=== PATIENT | female | born 1945 | race Caucasian/White ===

== ENCOUNTER 2020-02-10 07:47 | Outpatient (CLI) | payer MEDICARE, SELFPAY ==
--- NOTE | ~2020-02-10 | MM_ITS ---
EXAMINATION: MM screening [facility] BI w [facility] HISTORY: Screening mammogram TECHNIQUE: Craniocaudal and mediolateral oblique 3-D tomosynthesis images were obtained and synthetic 2-D images were generated. CAD analysis was submitted and interpreted. COMPARISON: 01/17/2019, 12/14/2017, 05/29/2016 bilateral digital screening mammogram examinations BREAST PARENCHYMAL COMPOSITION: The breasts are almost entirely fatty. FINDINGS: There is no evidence of suspicious mass, calcification, or architectural distortion to sugg est malignancy in either breast. There has been no suspicious interval change. IMPRESSION: 1. No mammographic evidence of malignancy. 2. Recommend routine screening mammography in one year. BI-RADS Category 1: Negative Reviewed, dictated and finalized at location A.
== END 2020-02-10 07:48 | disposition home or self-care (01) ==
LOC: ANHIMG 07:50
PROVIDERS: PCP Family Medicine; Visit Provider Family Medicine
DX: Z12.31 Encounter for screening mammogram for malignant neoplasm of breast (principal)
CPT/HCPCS: 77063; 77067

== ENCOUNTER 2020-07-03 08:30 | Outpatient (CLI) | payer MEDICARE, SELFPAY ==
[2020-07-03 09:56] LABS: Basophils Absolute Auto 0.1 K/mm3 (0.0-0.1); Basophils Percent Auto 0.7 % (0.2-1.2); Eosinophils Absolute Auto 0.1 K/mm3 (0-0.3); Eosinophils Percent Auto 2.1 % (0-4.4); Hematocrit 40.2 % (37.0-47.0); Hemoglobin 13.2 g/dL (12.0-15.0); Immature Granulocyte Absolute 0.02 K/mm3 (0.00-0.031); Immature Granulocyte Percent A 0.3 % (0-0.5); Lymphocytes Absolute Auto 1.84 K/mm3 (0.9-3.2); Lymphocytes Percent Auto 27.2 % (18.3-44.2); Mean Corpuscular HGB Conc 32.8 g/dl (32-36); Mean Corpuscular Hemoglobin 30.3 pg (26-34); Mean Corpuscular Volume 92.2 fl (80-100); Mean Platelet Volume 11.4 fl (7.4-10.4); Monocytes Absolute Auto 0.6 K/mm3 (0.1-0.6); Monocytes Percent Auto 8.4 % (2.6-8.5); Neutrophils Absolute Auto 4.1 K/mm3 (1.3-6.7); Neutrophils Percent Auto 61.3 % (45.5-73.1); Platelet Count Result 203 k/mm3 (150-375); Red Blood Count 4.36 M/mm3 (4.2-5.4); Red Cell Distribution Width 11.9 % (11.5-14.5); White Blood Count 6.8 K/mm3 (4.5-10.0)
[2020-07-03 10:14] LABS: Alanine Aminotransferase 15 U/L (4-35); Albumin Level 4.4 g/dL (3.5-5.1); Alkaline Phosphatase 64 U/L (38-126); Anion Gap 9 mmol/L (8-16); Aspartate Amino Transferase 24 U/L (14-36); Bilirubin,Total 0.4 mg/dL (0.2-1.3); Blood Urea Nitrogen 16 mg/dL (7-17); Calcium 9.9 mg/dL (8.4-10.2); Carbon Dioxide 30 mmol/L (22-30); Chloride 100 mmol/L (98-107); Cholesterol 164 mg/dL (0-200); Estimated Glomerular Filt Rate > 60; Glucose 103 mg/dL (65-105); HDL Direct 68 mg/dL; Sodium 139 mmol/L (137-145); Triglycerides 78 mg/dL (<150)
[2020-07-03 10:25] LABS: LDL Cholesterol Direct 78 mg/dL
[2020-07-03 11:18] LABS: Free T4 Free Thyroxine 0.69 ng/mL (0.78-2.19); Vitamin D 25 Hydroxy 50.2 ng/mL
[2020-07-03 11:22] LABS: Hepatitis B Surface Antigen Negative (Negative)
[2020-07-03 11:28] LABS: HAV RESULT Negative (Negative); Hepatitis B Core IgM Result Negative (Negative)
[2020-07-03 11:39] LABS: Hepatitis C Virus Antibody Negative (Negative)
== END 2020-07-03 08:31 | disposition home or self-care (01) ==
PROVIDERS: PCP Family Medicine; Visit Provider Family Medicine
DX: E66.01 Morbid (severe) obesity due to excess calories (principal); E78.2 Mixed hyperlipidemia; E03.9 Hypothyroidism, unspecified; I10 Essential (primary) hypertension; E55.9 Vitamin D deficiency, unspecified; R73.01 Impaired fasting glucose; R53.1 Weakness
CPT/HCPCS: 36415; 80053; 80061; 80074; 82306; 84439; 84443; 84480; 85025

== ENCOUNTER 2021-03-06 11:47 | Outpatient (CLI) | payer MEDICARE, SELFPAY ==
--- NOTE | ~2021-03-06 | MM_ITS ---
EXAMINATION: MM screening [facility] BI w [facility] HISTORY: Screening mammogram TECHNIQUE: Craniocaudal and mediolateral oblique 3-D tomosynthesis images were obtained and synthetic 2-D images were generated. CAD analysis was submitted and interpreted. COMPARISON: 02/10/2020, 12/31/2018, 12/14/2017 BREAST PARENCHYMAL COMPOSITION: The breasts are almost entirely fatty. FINDINGS: There is no evidence of suspicious mass, calcification, or architectural distortion to sugg est malignancy in either breast. There has been no suspicious interval change. IMPRESSION: 1. No mammographic evidence of malignancy. 2. Recommend routine screening mammography in one year. BI-RADS Category 1: Negative Reviewed, dictated and finalized at location A.
== END 2021-03-06 11:48 | disposition home or self-care (01) ==
LOC: ANHIMG 11:49
PROVIDERS: PCP Family Medicine; Visit Provider Nurse Practitioner
DX: Z12.31 Encounter for screening mammogram for malignant neoplasm of breast (principal)
CPT/HCPCS: 77063; 77067

== ENCOUNTER 2021-03-08 09:54 | Outpatient (CLI) | payer MEDICARE, SELFPAY ==
--- NOTE | ~2021-03-08 | XR_ITS ---
EXAMINATION: XR knee RT min 4V EXAM DATE: 03/08/2021 10:22 INDICATION: RT knee pain and swelling, medial pain, swelling, no injury. TECHNIQUE: Right knee lateral, frontal AP, frontal PA tunnel, sunrise projections. There is no prior study for comparison. FINDINGS: There are no acute right knee fractures or dislocations identified. There is no subcutaneo us gas. Dense distal SFA arteriosclerosis. There is moderate right knee primary osteoarthritis. Sma ll to moderate-sized joint effusion. There are no radiopaque foreign bodies. IMPRESSION: 1. Moderate right knee osteoarthritis. 2. Small to moderate joint effusion. Reviewed, dictated and finalized at location B.
== END 2021-03-08 09:55 | disposition home or self-care (01) ==
LOC: ANHIMG 10:03
PROVIDERS: PCP Family Medicine; Visit Provider Nurse Practitioner
DX: M17.11 Unilateral primary osteoarthritis, right knee (principal); M25.461 Effusion, right knee
CPT/HCPCS: 73564

== ENCOUNTER 2021-03-21 08:29 | Outpatient (CLI) | payer MEDICARE, SELFPAY ==
--- NOTE | ~2021-03-21 | DEXA_ITS ---
Bone Density Report Name: Destiney Medina Age: 76 Sex: Female Ethnicity: White Date of : 1945 Indication: postmenopausal; Referring Provider: José, Mary Nunez Study: Bone densitometry was performed. Exam Date: March 21, 2021 Accession number: [id number] Bone Density: Region BMD T-score Z-score Classification AP Spine (L1, L4) 1.125 0.8 3.2 Normal Femoral Neck (Left) 0.675 -1.6 0.5 Osteopenia Total Hip (Left) 0.948 0.0 1.8 Normal Total Hip Bilateral Avg 0.959 0.1 1.9 Normal Femoral Neck (Right) 0.784 -0.6 1.5 Normal Total Hip (Right) 0.968 0.2 2.0 Normal World Health Organization criteria for BMD impression classify patients as: Normal (T-score at or above -1.0), Osteopenia (T-score between -1.0 and -2.5), or Osteoporosis (T-score at or below -2.5). 10-year Fracture Risk(1): Major Osteoporotic Fracture 10% Hip Fracture 3.0% Reported Risk Factors: [place] (), Neck BMD=0.675, BMI=40.2, smoking (1) FRAX(R) Version 3.08. Fracture probability calculated for an untreated patient. Fracture probability may be lower if the patient has received treatment. Clinical Information Provided by Patient: Smokes Has used the following medications: Vitamin D, Calcium Patient maximum height was 62 Menopause Age: 51 No regular weight bearing exercise Onset of menses at age 14 Number of children 2 Impression: The patient has low bone mass, based on the Left Femoral Neck T-score. The patient has an estimated ten-year risk of hip fracture of 3% and an estimated ten-year risk of major fracture of 10%, based on the WHO FRAX algorithm. The patient has risk factors, including: smoking. Discussion: BONE DENSITY IS LOW AT ONE OR MORE SKELETAL SITES. THE PATIENT'S BMD AND CLINICAL RISK FACTORS CONTRIBUTE TO THIS PATIENT'S INCREASED RISK OF FRACTURE. This patient's lowest T-score is low at one or more skeletal sites. It meets the World Health Organization's (WHO) criteria for ?low bone mass? (T-score between -1.0 and -2.5). The patient's 10-year risk of hip fracture as calculated by FRAX exceeds the threshold where pharmacological therapy is recommended by the National Osteoporosis Foundation (NOF). However, all treatment decisions require clinical judgment and consideration of individual patient factors, including patient preferences, comorbidities, previous drug use, risk factors not captured in the FRAX model (e.g., frailty, falls, vitamin D deficiency, increased bone turnover, interval significant decline in bone density) and possible under or overestimation of fracture risk by FRAX. The patient should follow a healthful lifestyle (good nutrition with adequate calcium and vitamin D, and appropriate weight-bearing exercise). Follow-Up: Consider a repeat BMD and Vertebral Fracture Assessment (VFA) exam i
== END 2021-03-21 08:30 | disposition home or self-care (01) ==
LOC: ANHIMG 08:33
PROVIDERS: PCP Family Medicine; Visit Provider Nurse Practitioner
DX: M81.0 Age-related osteoporosis without current pathological fracture (principal); M85.852 Other specified disorders of bone density and structure, left thigh
CPT/HCPCS: 77080

== ENCOUNTER 2021-07-31 08:31 | Outpatient (CLI) | payer MEDICARE, SELFPAY ==
[2021-07-31 09:09] LABS: Basophils Percent Auto 0.6 % (0.2-1.2); Eosinophils Absolute Auto 0.2 K/mm3 (0-0.3); Eosinophils Percent Auto 3.2 % (0-4.4); Hematocrit 37.5 % (37.0-47.0); Hemoglobin 12.3 g/dL (12.0-15.0); Immature Granulocyte Absolute 0.03 K/mm3 (0.00-0.031); Immature Granulocyte Percent A 0.4 % (0-0.5); Lymphocytes Absolute Auto 1.47 K/mm3 (0.9-3.2); Lymphocytes Percent Auto 21.2 % (18.3-44.2); Mean Corpuscular HGB Conc 32.8 g/dl (32-36); Mean Corpuscular Hemoglobin 29.6 pg (26-34); Mean Corpuscular Volume 90.1 fl (80-100); Mean Platelet Volume 10.6 fl (7.4-10.4); Monocytes Absolute Auto 0.6 K/mm3 (0.1-0.6); Monocytes Percent Auto 8.8 % (2.6-8.5); Neutrophils Absolute Auto 4.6 K/mm3 (1.3-6.7); Neutrophils Percent Auto 65.8 % (45.5-73.1); Platelet Count Result 269 k/mm3 (150-375); Red Blood Count 4.16 M/mm3 (4.2-5.4); Red Cell Distribution Width 13.2 % (11.5-14.5)
[2021-07-31 09:26] LABS: Alanine Aminotransferase 13 U/L (4-35); Albumin Level 4.6 g/dL (3.5-5.1); Alkaline Phosphatase 97 U/L (38-126); Anion Gap 10 mmol/L (8-16); Aspartate Amino Transferase 23 U/L (14-36); Bilirubin,Total 0.4 mg/dL (0.2-1.3); Blood Urea Nitrogen 17 mg/dL (7-17); Calcium 10.1 mg/dL (8.4-10.2); Carbon Dioxide 27 mmol/L (22-30); Chloride 96 mmol/L (98-107); Cholesterol 153 mg/dL (0-200); Estimated Glomerular Filt Rate > 60; Glucose 101 mg/dL (65-110); HDL Direct 55 mg/dL; Potassium 4.2 mmol/L (3.4-5.0); Sodium 133 mmol/L (137-145); Triglycerides 92 mg/dL (<150)
[2021-07-31 09:30] LABS: Creatinine Urine 61.1 mg/dL
[2021-07-31 09:32] LABS: MALB Creatinine Ratio 16.9 mg/g (0-30); Microalbumin Urine Random 10.3 mg/L (0-16.7)
[2021-07-31 09:37] LABS: LDL Cholesterol Direct 62 mg/dL
[2021-07-31 09:42] LABS: Free T4 Free Thyroxine 0.99 ng/mL (0.78-2.19); Vitamin D 25 Hydroxy 63.6 ng/mL
[2021-07-31 09:57] LABS: Total Triiodothyronine (T3) 1.11 NG/ML (0.97-1.69)
== END 2021-07-31 08:32 | disposition home or self-care (01) ==
LOC: ANHLAB 08:38
PROVIDERS: PCP Family Medicine; Visit Provider Family Medicine
DX: E78.2 Mixed hyperlipidemia (principal); E66.01 Morbid (severe) obesity due to excess calories; I10 Essential (primary) hypertension; E55.9 Vitamin D deficiency, unspecified; R80.9 Proteinuria, unspecified
CPT/HCPCS: 36415; 80053; 80061; 82043; 82306; 84439; 84443; 84480; 85025

== ENCOUNTER 2022-01-17 08:10 | Outpatient (CLI) | payer MEDICARE, SELFPAY ==
[2022-01-17 09:05] LABS: Basophils Absolute Auto 0.1 K/mm3 (0.0-0.1); Basophils Percent Auto 1.2 % (0.2-1.2); Eosinophils Absolute Auto 0.3 K/mm3 (0-0.3); Eosinophils Percent Auto 4.2 % (0-4.4); Hematocrit 41.4 % (37.0-47.0); Hemoglobin 13.2 g/dL (12.0-15.0); Immature Granulocyte Absolute 0.03 K/mm3 (0.00-0.031); Immature Granulocyte Percent A 0.5 % (0-0.5); Lymphocytes Absolute Auto 1.59 K/mm3 (0.9-3.2); Lymphocytes Percent Auto 23.9 % (18.3-44.2); Mean Corpuscular HGB Conc 31.9 g/dl (32-36); Mean Corpuscular Hemoglobin 29.1 pg (26-34); Mean Corpuscular Volume 91.2 fl (80-100); Mean Platelet Volume 11.4 fl (7.4-10.4); Monocytes Absolute Auto 0.6 K/mm3 (0.1-0.6); Monocytes Percent Auto 8.4 % (2.6-8.5); Neutrophils Absolute Auto 4.1 K/mm3 (1.3-6.7); Neutrophils Percent Auto 61.8 % (45.5-73.1); Platelet Count Result 234 k/mm3 (150-375); Red Blood Count 4.54 M/mm3 (4.2-5.4); Red Cell Distribution Width 13.2 % (11.5-14.5); White Blood Count 6.7 K/mm3 (4.5-10.0)
[2022-01-17 09:19] LABS: Alanine Aminotransferase 16 U/L (6-35); Albumin Level 4.2 g/dL (3.5-5.1); Alkaline Phosphatase 91 U/L (38-126); Anion Gap 10 mmol/L (8-16); Aspartate Amino Transferase 26 U/L (14-36); Bilirubin,Total 0.5 mg/dL (0.2-1.3); Blood Urea Nitrogen 11 mg/dL (7-17); Calcium 9.2 mg/dL (8.4-10.2); Carbon Dioxide 26 mmol/L (22-30); Chloride 101 mmol/L (98-107); Cholesterol 165 mg/dL (0-200); Estimated Glomerular Filt Rate > 60; Glucose 101 mg/dL (65-110); HDL Direct 50 mg/dL; Potassium 3.8 mmol/L (3.4-5.0); Sodium 137 mmol/L (137-145); Triglycerides 106 mg/dL (<150)
[2022-01-17 09:30] LABS: LDL Cholesterol Direct 77 mg/dL
[2022-01-17 09:47] LABS: Total Triiodothyronine (T3) 1.21 NG/ML (0.97-1.69)
[2022-01-17 10:37] LABS: Creatinine Urine 85.9 mg/dL
[2022-01-17 10:39] LABS: MALB Creatinine Ratio 26.9 mg/g (0-30); Microalbumin Urine Random 23.1 mg/L (0-16.7)
[2022-01-17 10:48] LABS: Free T4 Free Thyroxine 1.02 ng/mL (0.78-2.19); Vitamin D 25 Hydroxy 62.2 ng/mL
== END 2022-01-17 08:11 | disposition home or self-care (01) ==
LOC: ANHLAB 08:12
PROVIDERS: PCP Family Medicine; Visit Provider Family Medicine
DX: I10 Essential (primary) hypertension (principal); E55.9 Vitamin D deficiency, unspecified; R80.9 Proteinuria, unspecified; Z13.29 Encounter for screening for other suspected endocrine disorder; Z13.220 Encounter for screening for lipoid disorders; Z13.6 Encounter for screening for cardiovascular disorders; Z13.0 Encounter for screening for diseases of the blood and blood-forming organs and certain disorders involving the immune mechanism
CPT/HCPCS: 36415; 80053; 80061; 82043; 82306; 84439; 84443; 84480; 85025

== ENCOUNTER 2022-03-14 08:50 | Observation (INO) | payer MEDICARE, SELFPAY ==
[2022-03-14] VITALS (11 sets, daily range): BP systolic 77–123; BP diastolic 48–89; PULSE 62–106; RESP 16–22; TEMP 36.2–36.8; O2SAT 96–100; BMI 38.0
--- NOTE | ~2022-03-14 | CT_ITS ---
EXAMINATION: CT abdomen pelvis w con DATE: 03/14/2022 10:05 INDICATION: Nausea, vomiting and diarrhea for one month. Elevated lactic. TECHNIQUE: Computed tomography (CT) of the abdomen and pelvis was performed with 100 CC Omnipaque 300 intravenous contrast. Automated exposure control and iterative reconstruction technique were employe d. Exam dose: 1246.15 mGy-cm total exam DLP. COMPARISON: None. FINDINGS: There is minimal discoid atelectasis or scarring in the lateral basilar right lower lobe. N ormal heart size. No pericardial or pleural effusion. 4.5 cm left hepatic cyst. The liver is otherwise unremarkable. The gallbladder is present. No bile du ct or pancreatic duct dilatation. No pancreatic mass lesion or calcification is noted. Normal splenic size. Normal morphology of the right adrenal gland. There is hypertrophy of the left adrenal gland. No renal mass lesion or urinary tract calculus or hydroureteronephrosis. The urinary bladder is evacu ated. Minimal sigmoid diverticulosis; no CT evidence of diverticulitis. No bowel obstruction, bowel wall th ickening, pneumatosis or intraperitoneal free air. No portal venous gas. Very small fat-containing umbilical hernia. Uterus and adnexal areas are unremarkable. Infrarenal saccular abdominal aortic aneurysm measures up to approximately 3.2 cm maximal dimension. There is extensive calcification of the abdominal aorta, prominent calcification at the origin of the celiac trunk, severe calcification at the origin and much of the remainder of the superior mesenteri c. Inferior mesenteric artery is not visualized. There is extensive calcification of the iliac and femoral arteries. Prominent bilateral renal artery calcifications. No suspicious osteolytic or osteoblastic lesions. IMPRESSION: 3.2 cm saccular infrarenal abdominal aortic aneurysm Extensive calcification at the origin of the celiac trunk and origin and much of the superior mesente adeola artery and nonvisualization of the inferior mesenteric artery No bowel obstruction, bowel wall thickening, pneumatosis or intraperitoneal free air or portal venous gas is detected Mild sigmoid diverticulosis; no evidence of diverticulitis 4.5 cm left hepatic cyst Hypertrophy of left adrenal gland Reviewed, dictated and finalized at Location A. Reviewed, dictated and finalized at location A. IMPRESSION: 3.2 cm saccular infrarenal abdominal aortic aneurysm Extensive calcification at the origin of the celiac trunk and origin and much o f the superior mesenteric artery and nonvisualization of the inferior mesenteri c artery No bowel obstruction, bowel wall thickening, pneumatosis or intraperitoneal suzanne e air or portal venous gas is detected Mild sigmoid diverticulosis; no evidence of diverticulitis 4.5 cm left hepatic cyst Hypertrophy of left adrenal gland
--- NOTE | 2022-03-14 09:01 | ED.NAVMDI ---
HPI - Nausea/Vomiting/Diarrhea General Chief complaint: Nausea/Vomiting/Diarrhea <Samantha Barnhart PA-C - Last Filed: 03/14/22 19:17> Stated complaint: nausea, vomiting, diarrhea x1 month <Samantha Barnhart PA-C - Last Filed: 03/14/22 19:17> Time Seen by Provider: 03/14/22 09:00 <GURDEEP Ramirez Last Filed: 03/14/22 19:17> Source: patient <GURDEEP Ramirez Last Filed: 03/14/22 19:17> Mode of arrival: ambulatory <GURDEEP Ramirez Last Filed: 03/14/22 19:17> Limitations: no limitations <Samantha Barnhart PA-C - Last Filed: 03/14/22 19:17> History of Present Illness HPI Narrative: Patient is a 77 y/o female who presents to the ED w/ c/o N/V/D. Patient reports having persistent diarrhea and nausea for the past 1 month. She states the diarrhea has been very watery and loose. No blood in the stool. She has intermittently been taking Imodium at home which does provide temporary relief of the diarrhea. She last took this yesterday, but had diarrhea this morning. She states her last episode of vomiting was around 3 weeks ago, but she has been persistently nauseous. She has not been evaluated for this. She has had fatigue, anorexia, weight loss, dizziness, and abdominal cramping associated with having BMs, but denies persistent abdominal pain. No fevers, chills, dysuria, hematuria, back pain, focal weakness, cough/cold symptoms. No recent antibiotics, travel, new medications. <GURDEEP Ramirez Last Filed: 03/14/22 19:17> Related Data Home medications: Home Medications Medication Instructions Recorded Confirmed alendronate 70 mg tablet 70 mg PO WEEKLY 08/18/19 03/14/22 atorvastatin 10 mg tablet 10 mg PO DAILY 08/18/19 03/14/22 calcium carbonate 500 mg calcium 500 mg PO BID 08/18/19 03/14/22 (1,250 mg) tablet (Calcium 500) lisinopril 40 mg tablet 40 mg PO DAILY 08/18/19 03/14/22 <Samantha Barnhart PA-C - Last Filed: 03/14/22 19:17> Allergies/Adverse reactions: Allergies Allergy/AdvReac Type Severity Reaction Status Date / Time No Known Allergies Allergy Unknown Verified 03/14/22 09:05 <Samantha Barnhart PA-C - Last Filed: 03/14/22 19:17> Review of Systems Review of Systems: CONSTITUTIONAL: Reports fatigue, anorexia, weight loss. Denies fever, chills, or sweats. ENT: Denies rhinorrhea, congestion, sore throat. CARDIOVASCULAR: Denies chest pain. RESPIRATORY: Denies dyspnea. GASTROINTESTINAL: Reports N/V/D, abdominal cramping. Denies rectal bleeding. GENITOURINARY: Denies dysuria or hematuria. SKIN: Denies rash or itching. MUSCULOSKELETAL: Denies back pain. NEUROLOGIC: Reports dizziness. Denies numbness or focal weakness. <Samantha Barnhart PA-C - Last Filed: 03/14/22 19:17> All systems reviewed & are unremarkable except as noted in HPI and below <Samantha Barnhart PA-C - Last Filed: 03/14/22 19:17> [facility] Past Medical History Medical History: Medical History COPD (chronic obstructive pulmonary disease) Dizziness Knee effusion Left knee DJD Obesity Right knee DJD Right knee pain Sleep apnea <Samantha Barnhart PA-C - Last Filed: 03/14/22 19:17> Surgical History Surgical History: Surgical History History of carpal tunnel release <Samantha Barnhart PA-C - Last Filed: 03/14/22 19:17> Social History Social History: Social History Smoking packs per day: 1 Smoking cigarettes per day: 20.0 Years smoked: 50 Smoking pack-years: 50.00 Smoking status: Current every day smoker Tobacco type: cigarettes Alcohol intake: current Drinks per week: 3 Substance use: never Substance use type: does not use Gender identity (if verbalized by the patient): Female Spiritual care concerns: No <Samantha Barnhart PA-C - Last Filed: 03/14/22 19:17> Exam Narrative: GENERAL
[2022-03-14 09:34] LABS: Basophils Absolute Auto 0.1 K/mm3 (0.0-0.1); Basophils Percent Auto 0.5 % (0.2-1.2); Eosinophils Absolute Auto 0.1 K/mm3 (0-0.3); Eosinophils Percent Auto 1.3 % (0-4.4); Hematocrit 39.9 % (37.0-47.0); Immature Granulocyte Absolute 0.04 K/mm3 (0.00-0.031); Immature Granulocyte Percent A 0.4 % (0-0.5); Lymphocytes Absolute Auto 1.55 K/mm3 (0.9-3.2); Lymphocytes Percent Auto 13.9 % (18.3-44.2); Mean Corpuscular HGB Conc 32.6 g/dl (32-36); Mean Corpuscular Hemoglobin 28.6 pg (26-34); Mean Corpuscular Volume 87.9 fl (80-100); Mean Platelet Volume 10.7 fl (7.4-10.4); Monocytes Absolute Auto 0.9 K/mm3 (0.1-0.6); Monocytes Percent Auto 7.7 % (2.6-8.5); Neutrophils Absolute Auto 8.5 K/mm3 (1.3-6.7); Neutrophils Percent Auto 76.2 % (45.5-73.1); Platelet Count Result 236 k/mm3 (150-375); Red Blood Count 4.54 M/mm3 (4.2-5.4); Red Cell Distribution Width 14.4 % (11.5-14.5); White Blood Count 11.2 K/mm3 (4.5-10.0)
[2022-03-14] MEDS: ONDANSETRON INJ 4 MG/2 ML VIAL IV PUSH (09:36)
[2022-03-14] MEDS: SODIUM CHLORIDE 0.9% IV 1,000 ML 999 ML IV CONT ×2 (09:38→11:02)
[2022-03-14 09:46] LABS: Alanine Aminotransferase 19 U/L (6-35); Albumin Level 4.2 g/dL (3.5-5.1); Alkaline Phosphatase 77 U/L (38-126); Anion Gap 9 mmol/L (8-16); Aspartate Amino Transferase 23 U/L (14-36); Bilirubin,Total 0.4 mg/dL (0.2-1.3); Blood Urea Nitrogen 23 mg/dL (7-17); Carbon Dioxide 20 mmol/L (22-30); Chloride 106 mmol/L (98-107); Estimated CRCL calculation 50 ml/min; Estimated Glomerular Filt Rate > 60; Glucose 121 mg/dL (65-110); Lipase 180 U/L (23-300); Potassium 4.1 mmol/L (3.4-5.0); Sodium 135 mmol/L (137-145)
[2022-03-14 09:47] LABS: Lactic Acid Reflex 3.8 mmol/L (0.7-2.0)
--- NOTE | 2022-03-14 10:00 | PC.NURSE ---
Pt at CT scan at this time
--- NOTE | 2022-03-14 10:31 | PC.NURSE ---
bladder scanned at 1020 and found 129 ml of urine
[2022-03-14 10:59] LABS: Appearance Urine Clear (Clear); Bilirubin Urine Negative (Negative); Color Urine Yellow (Yellow); Glucose Urine UA Negative (Negative); Ketones Urine Negative (Negative); Leukocyte Esterase Ur Trace LEU/UL (Negative); Nitrate Urine Positive (Negative); Protein Urine 1+ mg/dL (Negative); Urobilinogen Urine 0.2 mg/dL (<2.0)
[2022-03-14 11:12] LABS: Bacteria Urine 3+ /hpf; Mucus Urine Few /lpf; Squamous Epithelial Cell Urine Few /hpf (Few); WBC Clumps Urine Present /HPF; WBC Urine 31-50 /hpf
[2022-03-14 11:25] LABS: Add Urine Microscopic? YES; Blood Urine Trace-Intact (Negative)
[2022-03-14 12:23] LABS: Magnesium 1.8 mg/dL (1.6-2.3)
--- NOTE | 2022-03-14 12:24 | PM.IMHP ---
H&P: HPI History of Present Illness Date/Time: 03/14/22 12:22 Chief Complaint: Nausea, vomiting and diarrhea for one month Narrative: This pleasant 77 year old female patient with significant PMH of HTN, HLD, and Osteoporosis, presents to the ER this morning independently ambulatory with complaints of having intermittent N/V/D for the past month intermittently with a weight loss of 14 lbs (221-207) in the last month. The N/V/D is associated with lower abdominal pain. She denies any fevers, hematemesis, melena or hematochezia. She has not recently been on any abx therapy and she has intermittently used Imodium and pepto bismol without any relief of her symptoms. She has not seen her PCP regarding these symptoms recently, but she has been referred to a GI specialist with whom she cannot get in to see until sometime in March. This morning she says she has just had enough of the pain and the repeated need to use the bathroom prompting her to present to the ER. She endorses that her last BM was on the way here, in route from home, and that the last time she vomited was two weeks ago. She does have occasional GERD with her symptoms. She has not had any abdominal surgeries. Workup was started in the ER upon presentation and it was noted the patient initially had a soft blood pressure, however with IV fluids it is increased to normal. Labs were performed and patient has a slightly elevated white blood cell count of 11.2 with mild elevation of absolute neutrophils of 8.5. Her electrolytes are stable and normal, however her lactic acid is 3.8. Urinalysis is significant for positive nitrites in the urine as well as leukocyte esterase and 31-50 wbc's. Blood cultures x2 and urine culture are pending. CT of the abdomen and pelvis was performed demonstrating 3.2 cm saccular infrarenal abdominal aortic aneurysm with extensive calcification at the origin of the celiac trunk and origin much of the superior mesenteric artery and nonvisualization of the inferior mesenteric artery. There was no appreciable bowel obstruction, bowel wall thickening, pneumatosis or free air or portal venous gas detected, there is mild sigmoid diverticulosis without evidence of diverticulitis. A 4.5 cm left hepatic cyst is noted and hypertrophy of the left adrenal gland. Otherwise there are no acute findings. Pt. is being admitted to the hospitalist service at this time for hydration, further monitoring and treatment of UTI with consult to GI placed for Co-Management for patient's presenting symptoms. At the time of my assessment, the patient is without any CP, dyspnea, or urinary complaints, however, she does have some abdominal cramping and some continued N/V. Review of Systems Review of Systems: All systems reviewed & are unremarkable except as noted in HPI and below PMFSH Past Medical History Medical History COPD (chronic obstructive pulmonary disease) Dizziness Knee effusion Left knee DJD Obesity Right knee DJD Right knee pain Sleep apnea Surgical History Surgical History History of carpal tunnel release Social History Social History Smoking packs per day: 1 Smoking cigarettes per day: 20.0 Years smoked: 50 Smoking pack-years: 50.00 Smoking status: Current every day smoker Tobacco type: cigarettes Alcohol intake: current Drinks per week: 3 Substance use: never Substance use type: does not use Gender identity (if verbalized by the patient): Female Meds Home Medications and Allergies Home Medications Medication Instructions Recorded Confirmed Type alendronate 70 mg tablet 70 mg PO WEEKLY 08/18/19 04/25/21 History atorvastatin 10 mg tablet 10 mg PO DAILY 08/18/19 04/25/21 History calcium carbonate 500 mg calcium 500 mg PO BID 08/18/19 04/25/21 History (1,
[2022-03-14 12:32] LABS: Reflex Lactic Acid Yes or No Add Lactic
[2022-03-14 13:02] LABS: Lactic Acid 1.5 mmol/L (0.7-2.0)
[2022-03-14 14:29] LABS: Procalcitonin 0.1 ng/mL
[2022-03-14] MEDS: SODIUM CHLORIDE 0.9% IV 1,000 ML 100 ML IV CONT (14:32)
[2022-03-14] MEDS: PANTOPRAZOLE SODIUM IV 40 MG VIAL IV PUSH (16:16)
--- NOTE | 2022-03-14 16:19 | ADMGEN ---
This patient, Destiney Medina, was admitted to [facility] Surg Room 307-01 at 1405. Patient/family oriented to hospital policies and general routines including ID bracelet, bed and alarms, visiting hours, pain management, procedures, bathroom and other care routines, personal items, smoking policy, room service/diet, and visiting hours. Information on how to activate the Rapid Response Team has been discussed. Patient/Family are encouraged to report perceived risks to care and to ask questions if they do not understand what they are told or what they should do.
[2022-03-15] MEDS: SODIUM CHLORIDE 0.9% IV 1,000 ML 100 ML IV CONT (00:24)
[2022-03-15 05:56] LABS: Basophils Percent Auto 0.5 % (0.2-1.2); Eosinophils Absolute Auto 0.2 K/mm3 (0-0.3); Eosinophils Percent Auto 3.2 % (0-4.4); Hematocrit 33.8 % (37.0-47.0); Hemoglobin 10.6 g/dL (12.0-15.0); Immature Granulocyte Absolute 0.03 K/mm3 (0.00-0.031); Immature Granulocyte Percent A 0.5 % (0-0.5); Lymphocytes Absolute Auto 1.27 K/mm3 (0.9-3.2); Lymphocytes Percent Auto 20.1 % (18.3-44.2); Mean Corpuscular HGB Conc 31.4 g/dl (32-36); Mean Corpuscular Hemoglobin 28.5 pg (26-34); Mean Corpuscular Volume 90.9 fl (80-100); Mean Platelet Volume 10.5 fl (7.4-10.4); Monocytes Absolute Auto 0.5 K/mm3 (0.1-0.6); Monocytes Percent Auto 7.9 % (2.6-8.5); Neutrophils Absolute Auto 4.3 K/mm3 (1.3-6.7); Neutrophils Percent Auto 67.8 % (45.5-73.1); Platelet Count Result 160 k/mm3 (150-375); Red Blood Count 3.72 M/mm3 (4.2-5.4); Red Cell Distribution Width 14.3 % (11.5-14.5); White Blood Count 6.3 K/mm3 (4.5-10.0)
[2022-03-15 06:00] VITALS: BP 148/63; PULSE 66; RESP 18; TEMP 36.3; O2SAT 97
[2022-03-15 06:12] LABS: Alanine Aminotransferase 14 U/L (6-35); Alkaline Phosphatase 59 U/L (38-126); Anion Gap 2 mmol/L (8-16); Aspartate Amino Transferase 17 U/L (14-36); Bilirubin,Total 0.1 mg/dL (0.2-1.3); Blood Urea Nitrogen 11 mg/dL (7-17); Calcium 7.9 mg/dL (8.4-10.2); Carbon Dioxide 24 mmol/L (22-30); Chloride 112 mmol/L (98-107); Estimated CRCL calculation 63 ml/min; Estimated Glomerular Filt Rate > 60; Glucose 97 mg/dL (65-110); Magnesium 1.9 mg/dL (1.6-2.3); Potassium 4.1 mmol/L (3.4-5.0); Sodium 138 mmol/L (137-145)
--- NOTE | 2022-03-15 08:11 | PM.IMPN ---
Progress Note: A&P Assessment and Plan (1) Nausea vomiting and diarrhea: Code(s): R11.2 - Nausea with vomiting, unspecified; R19.7 - Diarrhea, unspecified Status: Acute Assessment and Plan: - Consult GI services in setting of patient having prolonged symptoms and weight loss of 14 lbs in one month. Appreciate the recommendations ongoing co-management. - BCx2 pending - Stool culture, C-diff and O&P pending. - PRN Zofran for nausea - Bentyl prn ordered. - Continue IV fluids of normal saline at 100 mL/hour. - PPI therapy ordered with maximization using Protonix 40 mg IVP BID. (2) Weight loss: Code(s): R63.4 - Abnormal weight loss Status: Acute Assessment and Plan: - Daily weights - treatment as above. - Accurate I and O (3) Urinary tract infection: Qualifiers: Hematuria presence: with hematuria Urinary tract infection type: acute cystitis Qualified Code(s): N30.01 - Acute cystitis with hematuria Code(s): N39.0 - Urinary tract infection, site not specified Status: Acute Assessment and Plan: - Urine culture pending - Rocephin 1 g daily. (4) Dehydration: Code(s): E86.0 - Dehydration Status: Acute Assessment and Plan: - Continue hydration with normal saline at 100 mL/hour. - Follow daily labs and vitals for trending. (5) Elevated lactic acid level: Code(s): R79.89 - Other specified abnormal findings of blood chemistry Status: Acute Assessment and Plan: - lactic acid noted to be 3.8. Suspect this is from dehydration. - Patient has received 2 L IV fluids. Will recheck stat lactic acid. Also add on procalcitonin as a predictor of potential sepsis. (6) High cholesterol: Code(s): E78.00 - Pure hypercholesterolemia, unspecified Status: Acute Assessment and Plan: - Continue home dose of atorvastatin 10 mg daily. - LFTs noted to be normal. (7) HTN (hypertension): Code(s): I10 - Essential (primary) hypertension Status: Acute Assessment and Plan: - Continue home medications of lisinopril 40 mg p.o. daily. - Renal function noted to be normal. (8) Osteoporosis: Code(s): M81.0 - Age-related osteoporosis without current pathological fracture Status: Acute Assessment and Plan: - Continue patient's alendronate 70 mg p.o. weekly. Subjective Date/time seen: 03/15/22 08:11 Review of Systems Review of Systems: All systems reviewed & are unremarkable except as noted in HPI and below Objective Data Vital Signs Vital Signs: Vital Signs - 24 hr 03/14/22 08:51 03/14/22 09:13 03/14/22 09:13 Temperature 97.1 F L Pulse Rate 106 H 65 62 Respiratory Rate 16 18 Blood Pressure 100/70 77/58 L 97/48 L Pulse Oximetry 100 100 Oxygen Delivery Room Air 03/14/22 09:30 03/14/22 09:17 03/14/22 09:30 Temperature Pulse Rate 65 91 Respiratory Rate 20 20 Blood Pressure 100/48 L 86/58 L 77/58 L Pulse Oximetry 98 98 Oxygen Delivery 03/14/22 09:32 03/14/22 11:03 03/14/22 11:58 Temperature 98.3 F Pulse Rate 95 77 77 Respiratory Rate 20 20 18 Blood Pressure 100/48 L 101/61 120/64 Pulse Oximetry 98 100 100 Oxygen Delivery 03/14/22 13:00 03/14/22 13:56 03/14/22 14:30 Temperature 97.6 F 98.3 F Pulse Rate 76 76 Respiratory Rate 16 18 Blood Pressure 123/67 112/80 Pulse Oximetry 99 99 Oxygen Delivery Room Air 03/14/22 15:08 03/14/22 21:47 03/15/22 06:00 Temperature 97.4 F L 97.6 F 97.3 F L Pulse Rate 82 71 66 Respiratory Rate 22 H 18 18 Blood Pressure 106/89 112/70 148/63 H Pulse Oximetry 96 100 97 Oxygen Delivery Intake/Output Intake/Output: Intake & Output 03/12/22 03/13/22 03/14/22 03/15/22 23:59 23:59 23:59 23:59 Intake Total 2170 1590 Output Total 50 2700 Balance 2120 -1110 Meds/Results Medications: Active Medications Generic Name Dose Route Start Last Admin Trade
[2022-03-15] MEDS: ATORVASTATIN 10 MG TABLET PO (08:16)
[2022-03-15] MEDS: PANTOPRAZOLE SODIUM IV 40 MG VIAL IV PUSH (08:16)
[2022-03-15] MEDS: lisinopriL 10 MG TABLET PO (08:16)
--- NOTE | 2022-03-15 09:49 | WPDGICN ---
Assessment and Plan Assessment and plan (1) Nausea vomiting and diarrhea: Code(s): R11.2 - Nausea with vomiting, unspecified; R19.7 - Diarrhea, unspecified Status: Acute Assessment and Plan: Nausea vomiting diarrhea appears to have been present for 1 month in miraculously has improved overnight. This may be related IV rehydration. Perhaps related to empiric antibiotic use. Unable to obtain stool cultures because diarrhea has resolved. Would recommend increasing diet and early discharge. If diarrhea recurs then stool culture is advised. Because she was started on empiric antibiotics would continue this for 1 week. Antibiotics should also be directed towards her concomitant urinary tract infection. Consider elective neoplasia screening colonoscopy according screening guidelines if not already accomplished this can be done as an outpatient. (2) Urinary tract infection: Qualifiers: Hematuria presence: with hematuria Urinary tract infection type: acute cystitis Qualified Code(s): N30.01 - Acute cystitis with hematuria Code(s): N39.0 - Urinary tract infection, site not specified Status: Acute Assessment and Plan: Urinalysis suggest underlying urinary tract infection. Recommend urine cultures and appropriate antibiotic coverage. Perhaps this contributed to nausea. GI Consult Note Consult date/time: 03/15/22 09:49 Reason for consult: Nausea vomiting and diarrhea. HPI: Destiney Medina is a 77 year old female I am asked to see at the request of the hospitalist service. Patient reports she began a new medicine for hypertension a month ago. Since that time she has had persistent nausea vomiting diarrhea. She describes diarrhea as watery and persistent throughout the day. Does not occur at night. She has had no fever no bleeding reported. Because of the extreme nausea vomiting diarrhea. She presented emergency room last night. She states she has not really been vomiting much but has had no appetite. And the emergency room she was felt to have urinary tract infection she was started on empiric antibiotics. She has been unable to produce a stool sample because the diarrhea now has stopped she no longer is nauseated in tolerating regular diet this morning. She is anxious to go home. She did receive empiric antibiotics last evening. Family history noncontributory. No one else in the family has been ill. Review of Systems Review of Systems: Review of systems noncontributory. [facility] Past Medical History Medical History COPD (chronic obstructive pulmonary disease) Dizziness Knee effusion Left knee DJD Obesity Right knee DJD Right knee pain Sleep apnea Surgical History Surgical History History of carpal tunnel release Social History Social History Smoking packs per day: 1 Smoking cigarettes per day: 20.0 Years smoked: 50 Smoking pack-years: 50.00 Smoking status: Current every day smoker Tobacco type: cigarettes Alcohol intake: current Drinks per week: 3 Substance use: never Substance use type: does not use Gender identity (if verbalized by the patient): Female Spiritual care concerns: No Meds Home Medications and Allergies Home Medications Medication Instructions Recorded Confirmed Type alendronate 70 mg tablet 70 mg PO WEEKLY 08/18/19 03/14/22 History atorvastatin 10 mg tablet 10 mg PO DAILY 08/18/19 03/14/22 History calcium carbonate 500 mg calcium 500 mg PO BID 08/18/19 03/14/22 History (1,250 mg) tablet (Calcium 500) lisinopril 40 mg tablet 40 mg PO DAILY 08/18/19 03/14/22 History Allergies Allergy/AdvReac Type Severity Reaction Status Date / Time No Known Allergies Allergy Unknown Verified 03/14/22 09:05 Vital Signs Vital Signs - 24 hr 03/14/22
--- NOTE | 2022-03-15 12:39 | PM.DS ---
DS: Admitting Diagnosis Discharge Date 03/15/22 Admitting Diagnosis Nausea vomiting diarrhea DS: Discharge Diagnosis Discharge Diagnosis (1) Nausea vomiting and diarrhea: Code(s): R11.2 - Nausea with vomiting, unspecified; R19.7 - Diarrhea, unspecified Status: Acute (2) Weight loss: Code(s): R63.4 - Abnormal weight loss Status: Acute (3) Urinary tract infection: Qualifiers: Hematuria presence: with hematuria Urinary tract infection type: acute cystitis Qualified Code(s): N30.01 - Acute cystitis with hematuria Code(s): N39.0 - Urinary tract infection, site not specified Status: Acute (4) Dehydration: Code(s): E86.0 - Dehydration Status: Acute (5) Elevated lactic acid level: Code(s): R79.89 - Other specified abnormal findings of blood chemistry Status: Acute (6) High cholesterol: Code(s): E78.00 - Pure hypercholesterolemia, unspecified Status: Acute (7) HTN (hypertension): Code(s): I10 - Essential (primary) hypertension Status: Acute (8) Osteoporosis: Code(s): M81.0 - Age-related osteoporosis without current pathological fracture Status: Acute DS: Summary Hospital Course Hospital Course: Assessment and plan (1) Nausea vomiting and diarrhea: ?Code(s): R11.2 - Nausea with vomiting, unspecified; R19.7 - Diarrhea, unspecified ?Status:?Acute ?Assessment and Plan: - Consult GI services in setting of patient having prolonged symptoms and weight loss of 14 lbs in one month.? Appreciate the recommendations ongoing co-management. - BCx2 pending - Stool culture, C-diff and O&P pending. - PRN Zofran for nausea - Bentyl prn ordered. - Continue IV fluids of normal saline? at 100 mL/hour. - PPI therapy ordered with maximization using Protonix 40 mg IVP BID. (2) Weight loss: ?Code(s): R63.4 - Abnormal weight loss ?Status:?Acute ?Assessment and Plan: - ? Daily weights -? treatment as above. - ? Accurate I and O (3) Urinary tract infection: ?Qualifiers: ?Hematuria presence:?with hematuria??Urinary tract infection type:?acute cystitis? Qualified Code(s):?N30.01 - Acute cystitis with hematuria ?Code(s): N39.0 - Urinary tract infection, site not specified ?Status:?Acute ?Assessment and Plan: - ? Urine culture pending -? Rocephin 1 g daily. 03/15: Transition to cefdinir 300 mg q.12 hours to complete a 7 day course of antibiotics (4) Dehydration: ?Code(s): E86.0 - Dehydration ?Status:?Acute ?Assessment and Plan: - ? Continue hydration with normal saline at 100 mL/hour. - ? Follow daily labs and vitals for trending. (5) Elevated lactic acid level: ?Code(s): R79.89 - Other specified abnormal findings of blood chemistry ?Status:?Acute ?Assessment and Plan: -? lactic acid noted to be 3.8.? Suspect this is from dehydration. - ? Patient has received 2 L IV fluids. ? Will recheck stat lactic acid.? Also add on procalcitonin as a predictor of potential sepsis. 03/15: Procalcitonin is negative for sepsis lactic acid completely resolved (6) High cholesterol: ?Code(s): E78.00 - Pure hypercholesterolemia, unspecified ?Status:?Acute ?Assessment and Plan: - ? Continue home dose of? atorvastatin 10 mg daily. - ? LFTs noted to be normal. (7) HTN (hypertension): ?Code(s): I10 - Essential (primary) hypertension ?Status:?Acute ?Assessment and Plan: - ? Continue home medications of lisinopril 40 mg p.o. daily. - ? Renal function noted to be normal. (8) Osteoporosis: ?Code(s): M81.0 - Age-related osteoporosis without current pathological fracture ?Status:?Acute ?Assessment and Plan: - ? Continue patient's alendronate 70 mg p.o. weekly. Time Spent with Patient Time attestation: Total time spent providing and/or coordinating discharge services: DS: Data Data Completed and Pending Labs on day of
== END 2022-03-15 11:40 | disposition home or self-care (01) ==
LOC: ANHED 12:14 → ANH3MEDSUR 12:53
PROVIDERS: Nurse Practitioner Adult Health; Physician Assistant; Admitting Provider Chiropractor; Emergency Provider Emergency Medicine; PCP Family Medicine; Visit Provider Student in an Organized Health Care Education/Training Program
DX: R11.2 Nausea with vomiting, unspecified (principal); R19.7 Diarrhea, unspecified; R63.4 Abnormal weight loss; N30.01 Acute cystitis with hematuria; E86.0 Dehydration; R79.89 Other specified abnormal findings of blood chemistry; E78.00 Pure hypercholesterolemia, unspecified; I10 Essential (primary) hypertension; M81.0 Age-related osteoporosis without current pathological fracture; I71.4 Abdominal aortic aneurysm, without rupture; I77.1 Stricture of artery; K55.1 Chronic vascular disorders of intestine; J44.9 Chronic obstructive pulmonary disease, unspecified; E66.9 Obesity, unspecified; Z68.37 Body mass index [BMI] 37.0-37.9, adult; G47.30 Sleep apnea, unspecified; R42 Dizziness and giddiness; D72.829 Elevated white blood cell count, unspecified; R00.0 Tachycardia, unspecified; I95.9 Hypotension, unspecified; E78.5 Hyperlipidemia, unspecified; K57.30 Diverticulosis of large intestine without perforation or abscess without bleeding; K76.89 Other specified diseases of liver; E27.8 Other specified disorders of adrenal gland; F17.210 Nicotine dependence, cigarettes, uncomplicated; Z79.899 Other long term (current) drug therapy
CPT/HCPCS: 36415; 51701; 74177; 80053; 81001; 83605; 83690; 83735; 84145; 85025; 87040; 87077; 87086; 87186; 96361; 96365; 96375; 96376; 99285; A9270; C9113; G0378; J0696; J2405; J7030; Q9967

== ENCOUNTER → 2022-06-04 09:29 | Outpatient (CLI) | payer MEDICARE, SELFPAY ==
--- NOTE | ~2022-06-04 | CT_ITS ---
EXAMINATION: CT abdomen w con DATE: 06/04/2022 09:53 INDICATION: Chronic diarrhea. TECHNIQUE: Computed tomography (CT) of the abdomen was performed with 100 mL Omnipaque 350 intravenou s contrast. Automated exposure control and iterative reconstruction technique were employed. The dose -length product was 679.55 mGy-cm. COMPARISON: CT abdomen and pelvis 03/14/2022, chest CT 05/13/2016 FINDINGS: The visualized portions of the lung bases demonstrate mild atelectasis. No pleural effusion . The heart size is normal. No pericardial effusion. There are cysts in the liver measuring up to 4.5 cm. The gallbladder, spleen, pancreas, and right adrenal gland are normal. There is chronic thickeni ng of left adrenal gland, likely benign. The kidneys are normal. There is a 3.5 cm infrarenal aortic aneurysm. There are no dilated loops of bowel. The terminal ileum is normal. There are no pathologica lly enlarged lymph nodes. There is no free intraperitoneal fluid. There is mild lumbar spondylosis. IMPRESSION: 1. 3.5 cm infrarenal aortic aneurysm, stable from 03/14/2022. Reviewed, dictated and finalized at location A.
[2022-06-04 09:47] LABS: Estimated Glomerular Filt Rate > 60
== END ==
PROVIDERS: PCP Family Medicine; Visit Provider Nurse Practitioner Adult Health
DX: K52.9 Noninfective gastroenteritis and colitis, unspecified (principal); I71.43 Infrarenal abdominal aortic aneurysm, without rupture
CPT/HCPCS: 74160; Q9967

== ENCOUNTER 2022-06-13 11:40 | Inpatient (IN) | payer MEDICARE, SELFPAY ==
[2022-06-13] VITALS (9 sets, daily range): BP systolic 81–121; BP diastolic 34–80; PULSE 74–101; RESP 16–32; TEMP 36.4–36.8; O2SAT 96–100; BMI 35.4
[2022-06-13 12:05] LABS: Basophils Absolute Auto 0.1 K/mm3 (0.0-0.1); Basophils Percent Auto 0.3 % (0.2-1.2); Eosinophils Absolute Auto 0.1 K/mm3 (0-0.3); Eosinophils Percent Auto 0.4 % (0-4.4); Hematocrit 39.8 % (37.0-47.0); Hemoglobin 13.5 g/dL (12.0-15.0); Immature Granulocyte Percent A 1.1 % (0-0.5); Lymphocytes Absolute Auto 2.41 K/mm3 (0.9-3.2); Lymphocytes Percent Auto 13.5 % (18.3-44.2); Mean Corpuscular HGB Conc 33.9 g/dl (32-36); Mean Corpuscular Hemoglobin 29.6 pg (26-34); Mean Corpuscular Volume 87.3 fl (80-100); Mean Platelet Volume 11.1 fl (7.4-10.4); Monocytes Absolute Auto 1.2 K/mm3 (0.1-0.6); Monocytes Percent Auto 6.8 % (2.6-8.5); Neutrophils Absolute Auto 13.9 K/mm3 (1.3-6.7); Neutrophils Percent Auto 77.9 % (45.5-73.1); Platelet Count Result 218 k/mm3 (150-375); Red Blood Count 4.56 M/mm3 (4.2-5.4); Red Cell Distribution Width 13.3 % (11.5-14.5); White Blood Count 17.8 K/mm3 (4.5-10.0)
[2022-06-13 12:13] LABS: Alanine Aminotransferase 20 U/L (6-35); Albumin Level 4.2 g/dL (3.5-5.1); Alkaline Phosphatase 90 U/L (38-126); Anion Gap 17 mmol/L (8-16); Aspartate Amino Transferase 24 U/L (14-36); Bilirubin,Total 0.9 mg/dL (0.2-1.3); Blood Urea Nitrogen 19 mg/dL (7-17); Carbon Dioxide 25 mmol/L (22-30); Chloride 87 mmol/L (98-107); Estimated CRCL calculation 37 ml/min; Estimated Glomerular Filt Rate 44; Glucose 125 mg/dL (65-110); Lipase 93 U/L (23-300); Sodium 129 mmol/L (137-145)
[2022-06-13 12:24] LABS: Add Urine Microscopic? YES; Amorphous Sediment Urine Few; Appearance Urine Cloudy (Clear); Bacteria Urine Trace /hpf; Bilirubin Urine Negative (Negative); Blood Urine 1+ (Negative); Color Urine Yellow (Yellow); Glucose Urine UA Negative (Negative); Ketones Urine Negative (Negative); Leukocyte Esterase Ur 3+ LEU/UL (Negative); Mucus Urine Rare /lpf; Nitrate Urine Negative (Negative); Protein Urine Negative (Negative); Specific Grav Ur 1.006 (1.001-1.035); Squamous Epithelial Cell Urine Many /hpf (Few); Urobilinogen Urine Negative mg/dL (<2.0); WBC Urine 31-50 /hpf
--- NOTE | 2022-06-13 12:43 | ED.GENADULT ---
HPI - General Adult General Chief complaint: Nausea/Vomiting/Diarrhea Stated complaint: diarrhea, vomiting, dizzy Time Seen by Provider: 06/13/22 12:19 History of Present Illness HPI narrative: 77-year-old female presented emerged department for evaluation of worsening dizziness and lightheadedness. Patient states intermittently since January she has had symptoms of of diarrhea with associated dizziness and fatigue. Patient is also had a urinary tract infection for which she was treated with antibiotics. Patient was scheduled for follow-up with Dr. Nails's office and patient was found to be hypotensive with a systolic blood pressure in the 80s. When patient initially arrived to the emergency department her pressure was improved but repeat blood pressures confirm the hypotension. Patient does complain of dizziness with ambulation. Patient denies any current abdominal pain but states that she has been having increased gas. Patient denies any pain with urination. Patient does have a previous history of hypertension, osteoporosis, obesity, COPD Related Data Home Medications Medication Instructions Recorded Confirmed alendronate 70 mg tablet 70 mg PO WEEKLY 08/18/19 06/13/22 atorvastatin 10 mg tablet 10 mg PO HS 08/18/19 06/13/22 calcium carbonate 500 mg calcium 500 mg PO BID 08/18/19 06/13/22 (1,250 mg) tablet (Calcium 500) lisinopril 40 mg tablet 40 mg PO DAILY 08/18/19 06/13/22 Allergies Allergy/AdvReac Type Severity Reaction Status Date / Time No Known Allergies Allergy Unknown Verified 06/13/22 11:01 Review of Systems Review of Systems: CONSTITUTIONAL: Denies fever, chills, or sweats. EYES: Denies visual changes, redness, or discharge. ENT: Denies rhinorrhea, congestion, sore throat, or otalgia. CARDIOVASCULAR: Denies chest pain, palpitations, or edema. RESPIRATORY: Denies cough or dyspnea. GASTROINTESTINAL: See HPI GENITOURINARY: See HPI SKIN: Denies rash or itching. MUSCULOSKELETAL: Denies back pain, joint pain, or myalgia. NEUROLOGIC: Denies headache, numbness, or weakness. [facility] Past Medical History Medical History COPD (chronic obstructive pulmonary disease) Dizziness High cholesterol Hypotension Knee effusion Left knee DJD Liver lesion Obesity Right knee DJD Right knee pain Sleep apnea Known longer uses her CPAP Smoking Surgical History Surgical History H/O cataract extraction History of carpal tunnel release Family History Family History Father Kidney disease Mother MVA (motor vehicle accident) Sibling Diabetes mellitus Social History Social History (Updated 06/13/22 @ 16:12 by Mary Bowens NP) Social History: The patient lives with her who is the poa and they have 2 children. She socially drinks. She continues to smoke 1 pack a cigarettes a day. I did offer her smoking cessation and she is not interested at this time. The patient . Code status full code Smoking packs per day: 1 Smoking cigarettes per day: 20.0 Years smoked: 50 Smoking pack-years: 50.00 Smoking status: Current every day smoker Alcohol intake: current Drinks per week: 3 Substance use: never Substance use type: does not use Gender identity (if verbalized by the patient): Female Spiritual care concerns: No Exam Narrative: APPEARANCE: Well appearing, no pain, no distress, well-nourished. HEAD: normocephalic, atraumatic. EYES: PERRLA/EOMI, conjunctivae clear. NOSE: Normal no drainage NECK: Supple. No adenopathy, no masses. RESPIRATORY: Airway patent, respirations nonlabored. Clear to auscultation bilaterally, no rales, rhonchi, wheezing. CARDIOVASCULAR: Regular rate and rhythm without murmurs rubs or gallops. ABDOMINAL: Soft, nontender, nondistended, normal bowel sounds MUSCULOSKELETAL: Moves all extremities. Strength/ROM intact, No edema, No calf te
[2022-06-13] MEDS: SODIUM CHLORIDE 0.9% IV 1,000 ML 999 ML IV CONT (13:03)
[2022-06-13] MEDS: POTASSIUM CHLORIDE 20 MEQ PACKET (FOR LIQUID) 40 MEQ PO (14:14)
--- NOTE | 2022-06-13 14:18 | PM.IMHP ---
H&P: HPI History of Present Illness Date/Time: 06/13/22 14:18 Chief Complaint: Nausea vomiting diarrhea. Narrative: This is a 77-year-old female patient who stated that she has had diarrhea since her last admission here in February. The patient stated she had been on antibiotics in February. She stated that she has loose stools maybe 3 to 4 times a day. She stated she has been taking some medication that is been helping with that. However today the patient came to the emergency room with complaints of worsening dizziness and lightheadedness. The patient stated that she went to her GI doctor Dr. Nails today for evaluation of her diarrhea. The patient was found to be hypotensive where her systolic blood pressures were in the 80s. When the patient arrived to the emergency room her blood pressures were confirmed to be low and she complained of dizziness with ambulation. The patient denies any abdominal pain at this time. The patient did have a stool in the emergency room that had some liquid and mashed potato consistency. Her white count was noted to be 17.8. Her sodium was low at 129. Potassium is 3.0. Creatinine and was listed as 1.2. Her glucose 125. Her urine was found to be infectious. Her stool for C diff was negative. The patient was empirically treated with IV Flagyl x1. She was given Rocephin for urinary tract infection. The patient was given 2 L of fluid in the emergency room which did improve her blood pressure which is now 112/62. Initially her blood pressure was 80/42. The patient is being admitted to observation status on the date of service of 06/13/2022. Review of Systems Review of Systems: See HPI All systems reviewed & are unremarkable except as noted in HPI and below Constitutional: Constitutional: Reports as per HPI and Reports no additional constitutional complaints Eyes: Eyes: Reports as per HPI and Reports no additional eye complaints ENT: Reports system reviewed and no additional complaints, except as documented and Reports Normal hearing present Cardiovascular: Cardiovascular: Reports no additional cardiovascular complaints Respiratory: Respiratory: Reports no additional respiratory complaints and Reports no additional respiratory complaints Gastrointestinal: Gastrointestinal: Reports as per HPI and Reports no additional gastrointestinal complaints Musculoskeletal: Musculoskeletal: Reports no additional musculoskeletal complaints Integumentary/Breasts: Skin/Breast: Reports system reviewed and no additional complaints, except as docu and Reports as per HPI Neurologic: Reports system reviewed and no additional complaints, except as documented, Reports as per HPI and Reports Normal hearing present Psychiatric: Psychiatric: Reports no additional psychiatric complaints and Reports as per HPI Endocrine: Endocrine: Reports no additional endocrine complaints Hematologic/Lymphatic: Hematologic/Lymphatic: Reports no additional hematologic/lymphatic complaints Allergic/Immunologic: Allergic/Immunologic: Reports no additional allergic/immunologic complaints [facility] Past Medical History Medical History COPD (chronic obstructive pulmonary disease) Dizziness High cholesterol Hypotension Knee effusion Left knee DJD Liver lesion Obesity Right knee DJD Right knee pain Sleep apnea Known longer uses her CPAP Smoking Surgical History Surgical History H/O cataract extraction History of carpal tunnel release Family History Family History Father Kidney disease Mother MVA (motor vehicle accident) Sibling Diabetes mellitus Social History Social History (Updated 06/13/22 @ 16:12 by Mary Bowens NP) Social History: The patient lives with her who is the poa and they have 2 children. She socially drinks. She continues to smoke 1 pack a cigarettes a day. I did offer her smoking cessa
--- NOTE | 2022-06-13 15:04 | ADMGEN ---
This patient, Destiney Medina, was admitted to [facility] Surg Room 324-01. Patient/family oriented to hospital policies and general routines including ID bracelet, bed and alarms, visiting hours, pain management, procedures, bathroom and other care routines, personal items, smoking policy, room service/diet, and visiting hours. Information on how to activate the Rapid Response Team has been discussed. Patient/Family are encouraged to report perceived risks to care and to ask questions if they do not understand what they are told or what they should do.
[2022-06-13] MEDS: SODIUM CHLORIDE 0.9% IV 1,000 ML 125 ML IV CONT ×2 (15:14→23:33)
[2022-06-13] MEDS: metroNIDAZOLE 500 MG/ISO 100ML 500 MG/100 ML BAG 100 MG IVPB (15:39)
[2022-06-13 15:42] LABS: Toxigenic C. Diff NEGATIVE (NEGATIVE)
[2022-06-13] MEDS: CALCIUM CARBONATE (OSCAL) 500 MG TABLET PO (17:26)
[2022-06-13] MEDS: CHOLESTYRAMINE (W/ SUGAR) 4 GM POWD.PACK PO (17:26)
[2022-06-13] MEDS: ATORVASTATIN 10 MG TABLET PO (20:54)
[2022-06-13] MEDS: PANTOPRAZOLE SODIUM IV 40 MG VIAL IV PUSH (20:54)
[2022-06-13] MEDS: DICYCLOMINE HCL 10 MG CAPSULE PO (20:54)
[2022-06-13 22:22] LABS: Anion Gap 7 mmol/L (8-16); Blood Urea Nitrogen 16 mg/dL (7-17); Calcium 7.9 mg/dL (8.4-10.2); Carbon Dioxide 25 mmol/L (22-30); Chloride 95 mmol/L (98-107); Estimated CRCL calculation 44 ml/min; Estimated Glomerular Filt Rate 54; Glucose 117 mg/dL (65-110); Magnesium 1.7 mg/dL (1.6-2.3); Potassium 3.3 mmol/L (3.4-5.0); Sodium 127 mmol/L (137-145)
[2022-06-14 04:47] VITALS: BP 92/39; PULSE 65; RESP 28; TEMP 36.3; O2SAT 96
--- NOTE | 2022-06-14 07:11 | WPDGICN ---
Assessment and Plan Assessment and plan (1) Diarrhea: Qualifiers: Diarrhea type: unspecified type Qualified Code(s): R19.7 - Diarrhea, unspecified Code(s): R19.7 - Diarrhea, unspecified Status: Acute Assessment and Plan: this has been going on now for about 4 months. Some days she will have some me stool she cannot count them. Rarely does she have any formed stool. There has been no blood in her stool. (2) Acute hypotension: Code(s): I95.9 - Hypotension, unspecified Status: Acute Assessment and Plan: She was noted to be hypotensive in our office and came to the emergency room her blood pressure systolic was in the 80s. She was given 2 L of fluid by bolus with her blood pressure finally coming up. (3) Hypokalemia: Code(s): E87.6 - Hypokalemia Status: Acute Assessment and Plan: Initial potassium was 3.0. Today is 3.2 (4) Hyponatremia: Code(s): E87.1 - Hypo-osmolality and hyponatremia Status: Acute Assessment and Plan: potassium was low on admission at 1 29 in fact is a bit lower today at 1:27 a.m.. (5) Weight loss: Code(s): R63.4 - Abnormal weight loss Status: Acute Assessment and Plan: Since February she states that she has lost about 30 lb. She had not been trying to lose weight Plan we will schedule her for colonoscopy to be done Thursday morning. I explained the procedure in prep to her. We will let her eat regular food today and switch her to clear liquids tomorrow. GI Consult Note Consult date/time: 06/14/22 07:11 HPI: Destiney Medina is a 77 year old female who was admitted with dehydration, hypotension, and severe diarrhea. The patient had a brief hospitalization in February with diarrhea but she felt much better after rehydration and she was sent home. She went to the office yesterday for follow-up and was noted to be hypotensive. She admitted that she had been lightheaded. She tells me she almost fell a couple days ago getting out of her chair. She has had diarrhea on and off since February. It briefly improved when she went on a brat diet. Imodium helps her briefly as well. There has been no blood in her stools. Her appetite has decreased. She feels that she is more afraid to eat than nauseated. But is somewhat nauseated today. She has been checked for C diff which was negative. She has lost about 30 lb since February. Her last colonoscopy was perhaps 20 years ago. On arrival she was found to have urinary tract infection as been started on Rocephin. She did receive 1 dose of Flagyl as well. Sodium also was low at 129 potassium was 3.0. White blood count is all over 17,000. Review of Systems Review of Systems: All systems reviewed & are unremarkable except as noted in HPI and below [facility] Past Medical History Medical History COPD (chronic obstructive pulmonary disease) Dizziness High cholesterol Hypotension Knee effusion Left knee DJD Liver lesion Obesity Right knee DJD Right knee pain Sleep apnea Known longer uses her CPAP Smoking Surgical History Surgical History H/O cataract extraction History of carpal tunnel release Family History Family History Father Kidney disease Mother MVA (motor vehicle accident) Sibling Diabetes mellitus Social History Social History Social History: The patient lives with her who is the poa and they have 2 children. She socially drinks. She continues to smoke 1 pack a cigarettes a day. I did offer her smoking cessation and she is not interested at this time. The patient . Code status full code Smoking packs per day: 1 Smoking cigarettes per day: 20.0 Years smoked: 50 Smoking pack-years: 50.00 Smoking status: Current every day smoker Alcohol intake: cur
[2022-06-14] MEDS: SODIUM CHLORIDE 0.9% IV 1,000 ML 125 ML IV CONT ×3 (08:33→19:51)
[2022-06-14] MEDS: PANTOPRAZOLE SODIUM IV 40 MG VIAL IV PUSH ×2 (08:34→19:51)
[2022-06-14] MEDS: CALCIUM CARBONATE (OSCAL) 500 MG TABLET PO ×2 (08:34→17:26)
[2022-06-14 08:35] VITALS: BP 92/39; PULSE 65; RESP 28; TEMP 36.3; O2SAT 96
[2022-06-14 09:36] LABS: Basophils Absolute Auto 0.1 K/mm3 (0.0-0.1); Basophils Percent Auto 0.4 % (0.2-1.2); Eosinophils Absolute Auto 0.1 K/mm3 (0-0.3); Eosinophils Percent Auto 0.6 % (0-4.4); Hematocrit 32.2 % (37.0-47.0); Hemoglobin 10.6 g/dL (12.0-15.0); Immature Granulocyte Percent A 0.8 % (0-0.5); Lymphocytes Absolute Auto 1.65 K/mm3 (0.9-3.2); Lymphocytes Percent Auto 13.2 % (18.3-44.2); Mean Corpuscular HGB Conc 32.9 g/dl (32-36); Mean Platelet Volume 11.1 fl (7.4-10.4); Monocytes Percent Auto 7.7 % (2.6-8.5); Neutrophils Absolute Auto 9.7 K/mm3 (1.3-6.7); Neutrophils Percent Auto 77.3 % (45.5-73.1); Platelet Count Result 169 k/mm3 (150-375); Red Blood Count 3.66 M/mm3 (4.2-5.4); Red Cell Distribution Width 13.4 % (11.5-14.5); White Blood Count 12.5 K/mm3 (4.5-10.0)
[2022-06-14 09:50] LABS: Lactic Acid Reflex 2.2 mmol/L (0.7-2.0)
[2022-06-14 10:01] LABS: Alanine Aminotransferase 19 U/L (6-35); Albumin Level 3.4 g/dL (3.5-5.1); Alkaline Phosphatase 69 U/L (38-126); Anion Gap 8 mmol/L (8-16); Anion Gap 9 mmol/L (8-16); Aspartate Amino Transferase 21 U/L (14-36); Bilirubin,Total 0.5 mg/dL (0.2-1.3); Blood Urea Nitrogen 10 mg/dL (7-17); Blood Urea Nitrogen 9 mg/dL (7-17); Calcium 7.7 mg/dL (8.4-10.2); Calcium 7.8 mg/dL (8.4-10.2); Carbon Dioxide 21 mmol/L (22-30); Carbon Dioxide 22 mmol/L (22-30); Chloride 104 mmol/L (98-107); Estimated CRCL calculation 54 ml/min; Estimated Glomerular Filt Rate > 60; Glucose 102 mg/dL (65-110); Lipase 103 U/L (23-300); Phosphorus 2.6 mg/dL (2.5-4.5); Potassium 3.5 mmol/L (3.4-5.0); Potassium 3.6 mmol/L (3.4-5.0); Sodium 134 mmol/L (137-145)
[2022-06-14 10:33] VITALS: O2SAT 97
[2022-06-14 10:55] LABS: Magnesium 1.9 mg/dL (1.6-2.3)
[2022-06-14] MEDS: CHOLESTYRAMINE (W/ SUGAR) 4 GM POWD.PACK PO ×2 (11:28→18:09)
[2022-06-14 12:31] LABS: Reflex Lactic Acid Yes or No Add Lactic
--- NOTE | 2022-06-14 13:02 | PM.IMPN ---
Progress Note: A&P Assessment and Plan (1) Acute UTI: Code(s): N39.0 - Urinary tract infection, site not specified Status: Acute Assessment and Plan: -the patient has been started on Rocephin. -could be related to diarrhea. -the patient had Klebsiella pneumoniae in February of this year. -blood and urine cultures are pending. 06/14/2022 interval history: patient is 77-year-old female presented emergency department with complaint of persistent diarrhea loss for my and recently frequency had worsen, poor p.o. intake patient was seen by her GI the clinic was hypotensive and was sent to emergency department for further evaluation most likely secondary to dehydration due to diarrhea and poor p.o. intake, patient is being hydrated with IVF, stool cultures are pending, patient empirically started on Flagyl, urine also suspicious for UTI and patient is being treated with ceftriaxone, patient seen by GI recommending colonoscopy to further evaluate, patient has a hyponatremia hypokalemia most likely secondary to dehydration and poor p.o. in will supplement and monitor, and further recommendation to follow (2) Diarrhea: Qualifiers: Diarrhea type: unspecified type Qualified Code(s): R19.7 - Diarrhea, unspecified Code(s): R19.7 - Diarrhea, unspecified Status: Acute Assessment and Plan: -the patient was in seeing GI specialist when she became symptomatic. -no GI is available here at this point but she will need to follow-up with GI. -stool cultures are pending. -the patient had a CT of the abdomen with several days ago. Which is listed above. -the patient was started on Questran. -continue with Bentyl (3) Dizziness: Code(s): R42 - Dizziness and giddiness Status: Acute Assessment and Plan: -most likely related to the dehydration. -check orthostatic blood pressures. -continue with IV fluids. As the patient had been hypotensive and responded to the fluids. (4) Hypotension: Code(s): I95.9 - Hypotension, unspecified Status: Acute Assessment and Plan: -most likely related to dehydration. -continue with IV fluids is the blood pressure did respond to the fluids. -could also be related to infection with the UTI. -holding lisinopril (5) High cholesterol: Code(s): E78.00 - Pure hypercholesterolemia, unspecified Status: Acute Assessment and Plan: -continue with atorvastatin. (6) Hypokalemia: Code(s): E87.6 - Hypokalemia Status: Acute Assessment and Plan: -her potassium was 3.0 and had been replaced. -will check her potassium later on tonight as well as her magnesium. (7) Hyponatremia: Code(s): E87.1 - Hypo-osmolality and hyponatremia Status: Acute Assessment and Plan: -continue with IV fluids and recheck electrolytes this evening. -check urine for osmolarity and electrolytes. (8) Acute renal failure: Code(s): N17.9 - Acute kidney failure, unspecified Status: Acute Assessment and Plan: -most likely pre renal azotemia related to the dehydration from the diarrhea. -avoid any nephrotoxic medications. -holding lisinopril Subjective Date/time seen: 06/14/22 13:02 Nausea vomiting diarrhea. HPI-Narrative: This is a 77-year-old female patient who stated that she has had diarrhea since her last admission here in February.? The patient stated she had been on antibiotics in February.? She stated that she has loose stools maybe 3 to 4 times a day.? She stated she has been taking some medication that is been helping with that.? However today the patient came to the emergency room with complaints of worsening dizziness and lightheadedness.? The patient stated that she went to her GI doctor Dr. Nails today for evaluation of her diarrhea.? The patient was found to be hypotensive where her systolic blood pressures were in the 80s.? When the patient arrived to the emergency room her blood pressures were confir
[2022-06-14 13:36] VITALS: BP 101/41; PULSE 72; RESP 10; TEMP 36.4; O2SAT 98
[2022-06-14 13:58] LABS: Lactic Acid 1.8 mmol/L (0.7-2.0)
[2022-06-14 17:30] LABS: Potassium Urine Random 11.1 meq/L
[2022-06-14 19:50] VITALS: PULSE 72; TEMP 36.4
[2022-06-14] MEDS: ATORVASTATIN 10 MG TABLET PO (19:51)
[2022-06-14 22:00] VITALS: BP 108/40; PULSE 71; RESP 14; TEMP 36.3; O2SAT 96
[2022-06-15] MEDS: SODIUM CHLORIDE 0.9% IV 1,000 ML 125 ML IV CONT ×3 (04:27→21:51)
[2022-06-15 06:00] VITALS: BP 120/46; PULSE 63; RESP 16; TEMP 35.9; O2SAT 100
[2022-06-15 08:00] VITALS: BP 89/64; PULSE 68; RESP 18; TEMP 36.5; O2SAT 100
[2022-06-15] MEDS: PANTOPRAZOLE SODIUM IV 40 MG VIAL IV PUSH ×2 (09:07→20:10)
[2022-06-15] MEDS: CALCIUM CARBONATE (OSCAL) 500 MG TABLET PO ×2 (09:08→16:34)
[2022-06-15] MEDS: CHOLESTYRAMINE (W/ SUGAR) 4 GM POWD.PACK PO (09:08)
[2022-06-15 10:25] VITALS: BP 111/50; PULSE 72; RESP 22; TEMP 36.5; O2SAT 100
[2022-06-15 10:26] VITALS: BP 115/44; PULSE 74; RESP 26; TEMP 36.5; O2SAT 100
--- NOTE | 2022-06-15 12:27 | PM.IMPN ---
Progress Note: A&P Assessment and Plan (1) Acute UTI: Code(s): N39.0 - Urinary tract infection, site not specified Status: Acute Assessment and Plan: -the patient has been started on Rocephin. -could be related to diarrhea. -the patient had Klebsiella pneumoniae in February of this year. -blood and urine cultures are pending. 06/15/2022 interval history: patient is 77-year-old female presented emergency department with complaint of persistent diarrhea and recently frequency had worsen, poor p.o. intake patient was seen by her GI in the clinic was hypotensive and was sent to emergency department for further evaluation most likely secondary to dehydration due to diarrhea and poor p.o. intake, patient is being hydrated with IVF, stool cultures are pending, patient empirically started on Flagyl, urine also suspicious for UTI and patient is being treated with ceftriaxone, patient seen by GI recommending colonoscopy to further evaluate, patient has a hyponatremia hypokalemia most likely secondary to dehydration and poor p.o. will supplement and monitor, and further recommendation to follow (2) Diarrhea: Qualifiers: Diarrhea type: unspecified type Qualified Code(s): R19.7 - Diarrhea, unspecified Code(s): R19.7 - Diarrhea, unspecified Status: Acute Assessment and Plan: -the patient was in seeing GI specialist when she became symptomatic. -no GI is available here at this point but she will need to follow-up with GI. -stool cultures are pending. -the patient had a CT of the abdomen with several days ago. Which is listed above. -the patient was started on Questran. -continue with Bentyl (3) Dizziness: Code(s): R42 - Dizziness and giddiness Status: Acute Assessment and Plan: -most likely related to the dehydration. -check orthostatic blood pressures. -continue with IV fluids. As the patient had been hypotensive and responded to the fluids. (4) Hypotension: Code(s): I95.9 - Hypotension, unspecified Status: Acute Assessment and Plan: -most likely related to dehydration. -continue with IV fluids is the blood pressure did respond to the fluids. -could also be related to infection with the UTI. -holding lisinopril (5) High cholesterol: Code(s): E78.00 - Pure hypercholesterolemia, unspecified Status: Acute Assessment and Plan: -continue with atorvastatin. (6) Hypokalemia: Code(s): E87.6 - Hypokalemia Status: Acute Assessment and Plan: -her potassium was 3.0 and had been replaced. -will check her potassium later on tonight as well as her magnesium. (7) Hyponatremia: Code(s): E87.1 - Hypo-osmolality and hyponatremia Status: Acute Assessment and Plan: -continue with IV fluids and recheck electrolytes this evening. -check urine for osmolarity and electrolytes. (8) Acute renal failure: Code(s): N17.9 - Acute kidney failure, unspecified Status: Acute Assessment and Plan: -most likely pre renal azotemia related to the dehydration from the diarrhea. -avoid any nephrotoxic medications. -holding lisinopril Subjective Date/time seen: 06/15/22 12:27 06/15/2022 interval history: patient is 77-year-old female presented emergency department with complaint of persistent diarrhea and recently frequency had worsen, poor p.o. intake patient was seen by her GI in the clinic was hypotensive and was sent to emergency department for further evaluation most likely secondary to dehydration due to diarrhea and poor p.o. intake, patient is being hydrated with IVF, stool cultures are pending, patient empirically started on Flagyl, urine also suspicious for UTI and patient is being treated with ceftriaxone, patient seen by GI recommending colonoscopy to further evaluate, patient has a hyponatremia hypokalemia most likely secondary to dehydration and poor p.o. will supplement and monitor, and further r
[2022-06-15 12:33] LABS: Hematocrit 34.1 % (37.0-47.0); Hemoglobin 11.1 g/dL (12.0-15.0); Mean Corpuscular HGB Conc 32.6 g/dl (32-36); Mean Corpuscular Hemoglobin 29.3 pg (26-34); Mean Platelet Volume 11.4 fl (7.4-10.4); Platelet Count Result 172 k/mm3 (150-375); Red Blood Count 3.79 M/mm3 (4.2-5.4); Red Cell Distribution Width 13.5 % (11.5-14.5); White Blood Count 9.6 K/mm3 (4.5-10.0)
[2022-06-15 13:02] LABS: Albumin Level 3.5 g/dL (3.5-5.1); Anion Gap 8 mmol/L (8-16); Blood Urea Nitrogen 4 mg/dL (7-17); Calcium 7.1 mg/dL (8.4-10.2); Carbon Dioxide 20 mmol/L (22-30); Chloride 107 mmol/L (98-107); Estimated CRCL calculation 61 ml/min; Estimated Glomerular Filt Rate > 60; Glucose 116 mg/dL (65-110); Magnesium 1.8 mg/dL (1.6-2.3); Phosphorus 1.9 mg/dL (2.5-4.5); Potassium 3.1 mmol/L (3.4-5.0); Sodium 135 mmol/L (137-145)
[2022-06-15 14:00] VITALS: BP 123/53; PULSE 66; RESP 20; TEMP 35.9; O2SAT 98
[2022-06-15] MEDS: polyethylene glycoL 3350 238 GM BOTTLE PO (16:32)
[2022-06-15] MEDS: ATORVASTATIN 10 MG TABLET PO (20:10)
[2022-06-15 22:00] VITALS: BP 149/51; PULSE 70; RESP 20; TEMP 36.3; O2SAT 100
[2022-06-16] VITALS (10 sets, daily range): BP systolic 82–166; BP diastolic 36–114; PULSE 65–80; RESP 16–24; TEMP 36.3–36.7; O2SAT 96–100
[2022-06-16] MEDS: SODIUM CHLORIDE 0.9% IV 1,000 ML 125 ML IV CONT (06:25)
[2022-06-16 06:36] LABS: Hematocrit 33.9 % (37.0-47.0); Hemoglobin 10.9 g/dL (12.0-15.0); Mean Corpuscular HGB Conc 32.2 g/dl (32-36); Mean Corpuscular Hemoglobin 29.2 pg (26-34); Mean Corpuscular Volume 90.9 fl (80-100); Mean Platelet Volume 11.4 fl (7.4-10.4); Platelet Count Result 166 k/mm3 (150-375); Red Blood Count 3.73 M/mm3 (4.2-5.4); Red Cell Distribution Width 13.2 % (11.5-14.5); White Blood Count 8.3 K/mm3 (4.5-10.0)
[2022-06-16 06:51] LABS: Albumin Level 3.2 g/dL (3.5-5.1); Anion Gap 11 mmol/L (8-16); Calcium 7.4 mg/dL (8.4-10.2); Carbon Dioxide 20 mmol/L (22-30); Chloride 109 mmol/L (98-107); Estimated CRCL calculation 70 ml/min; Estimated Glomerular Filt Rate > 60; Glucose 91 mg/dL (65-110); Magnesium 1.5 mg/dL (1.6-2.3); Phosphorus 2.4 mg/dL (2.5-4.5); Sodium 140 mmol/L (137-145)
[2022-06-16 07:01] LABS: Blood Urea Nitrogen < 2 mg/dL (7-17)
[2022-06-16] MEDS: PANTOPRAZOLE SODIUM IV 40 MG VIAL IV PUSH ×2 (10:08→20:37)
[2022-06-16] MEDS: POTASSIUM CHLORIDE INJ 40 MEQ in SODIUM CHLORIDE 0.9% IV 500 ML 130 MEQ IVPB (10:08)
[2022-06-16] MEDS: MAGNESIUM SULF 2 GM/WATER 50ML 2 GM/50 ML BAG IVPB (10:08)
--- NOTE | 2022-06-16 13:01 | WPDANESEPPF ---
Anes - Initial Pre Proc Eval Procedure: Operation Date: 06/16/22 14:30 Proposed Procedures p Colonoscopy - Beau Nails MD Date/Time: 06/16/22 13:01 Surgeon: Jennie Pastrana DO Pre Op Diagnosis: UTI/JENIFER/Dizziness Patient Data Age: 77 Gender: F Height: 1.57 m Weight: 88 kg Last Vital Signs Temp 36.4 C L 06/16/22 06:00 Pulse 71 06/16/22 06:00 Resp 23 H 06/16/22 06:00 BP 147/54 H 06/16/22 06:00 Pulse Ox 100 06/16/22 06:00 O2 Del Method Room Air 06/15/22 20:10 Allergies Allergy/AdvReac Type Severity Reaction Status Date / Time No Known Allergies Allergy Unknown Verified 06/13/22 11:01 Home Medications Medication Instructions Recorded Confirmed Type alendronate 70 mg tablet 70 mg PO WEEKLY 08/18/19 06/13/22 History atorvastatin 10 mg tablet 10 mg PO HS 08/18/19 06/13/22 History calcium carbonate 500 mg calcium 500 mg PO BID 08/18/19 06/13/22 History (1,250 mg) tablet (Calcium 500) lisinopril 40 mg tablet 40 mg PO DAILY 08/18/19 06/13/22 History dicyclomine 10 mg capsule 10 mg PO TID PRN Abdominal 03/15/22 06/13/22 Rx Cramping #30 caps Laboratory Tests 06/15/22 06/16/22 06/16/22 11:50 06:02 06:02 WBC 8.3 K/mm3 K/mm3 (4.5-10.0) RBC 3.73 M/mm3 L M/mm3 (4.2-5.4) Hgb 10.9 g/dL L g/dL (12.0-15.0) Hct 33.9 % L % (37.0-47.0) MCV 90.9 fl fl (80-100) MCH 29.2 pg pg (26-34) MCHC 32.2 g/dl g/dl (32-36) RDW 13.2 % % (11.5-14.5) Plt Count 166 k/mm3 k/mm3 (150-375) MPV 11.4 fl H fl (7.4-10.4) Sodium 135 mmol/L L mmol/L 140 mmol/L mmol/L (137-145) (137-145) Potassium 3.1 mmol/L L mmol/L 3.0 mmol/L L mmol/L (3.4-5.0) (3.4-5.0) Chloride 107 mmol/L mmol/L 109 mmol/L H mmol/L (98-107) (98-107) Carbon Dioxide 20 mmol/L L mmol/L 20 mmol/L L mmol/L (22-30) (22-30) Anion Gap 8 mmol/L mmol/L 11 mmol/L mmol/L (8-16) (8-16) BUN 4 mg/dL L D mg/dL < 2 mg/dL L mg/dL (7-17) (7-17) Creatinine 0.70 mg/dL mg/dL 0.60 mg/dL L mg/dL (0.7-1.0) (0.7-1.0) Estim Creat Clear Calc 61 ml/min ml/min 70 ml/min ml/min Estimated GFR > 60 > 60 (59 - ) (59 - ) Glucose 116 mg/dL H mg/dL 91 mg/dL mg/dL (65-110) (65-110) Calcium 7.1 mg/dL L mg/dL 7.4 mg/dL L mg/dL (8.4-10.2) (8.4-10.2) Phosphorus 1.9 mg/dL L mg/dL 2.4 mg/dL L mg/dL (2.5-4.5) (2.5-4.5) Magnesium 1.8 mg/dL mg/dL 1.5 mg/dL L mg/dL (1.6-2.3) (1.6-2.3) Albumin 3.5 g/dL g/dL 3.2 g/dL L g/dL (3.5-5.1) (3.5-5.1) Patient hx anesthesia problems: none Family hx anesthesia problems: none Results Review: All pre-operative results and documents have been reviewed as part of the pre-operative evaluation. [facility] Past Medical History Medical History COPD (chronic obstructive pulmonary disease) Dizziness High cholesterol Hypotension Knee effusion Left knee DJD Liver lesion Obesity Right knee DJD Right knee pain Sleep apnea Known longer uses her CPAP Smoking Surgical History Surgical History H/O cataract extraction History of carpal tunnel release Family History Family History Father Kidney disease Mother MVA (motor vehicle accident) Sibling Diabetes mellitus Social History Social History Social History: The patient lives with her who is the poa and they have 2 children. She socially drinks. She continues to smoke 1 pack a cigarettes a day. I did offer her smoking cessation and she is not interested at this time. The patient . Code status full code Smoking packs per day: 1 Smoking cigarettes per day: 20.0 Years smoked: 50 Smoking pack-years: 50.00 Smoking status: Current e
[2022-06-16] MEDS: LACTATED RINGERS 1,000 ML 150 ML IV CONT (13:39)
[2022-06-16] MEDS: MESALAMINE 400 MG DELAYED RELEASE CAPSULE 800 MG PO (16:11)
[2022-06-16] MEDS: CALCIUM CARBONATE (OSCAL) 500 MG TABLET PO (16:11)
[2022-06-16] MEDS: CEFDINIR 300 MG CAPSULE PO ×2 (16:11→20:37)
--- NOTE | 2022-06-16 17:50 | PM.IMPN ---
Progress Note: A&P Assessment and Plan (1) Hypokalemia: Code(s): E87.6 - Hypokalemia Status: Acute Assessment and Plan: -her potassium was 3.0 and had been replaced. -will check her potassium later on tonight as well as her magnesium. (2) Acute UTI: Code(s): N39.0 - Urinary tract infection, site not specified Status: Acute Assessment and Plan: -the patient has been started on Rocephin. -could be related to diarrhea. -the patient had Klebsiella pneumoniae in February of this year. -blood and urine cultures are pending. 06/16/2022 interval history: patient is 77-year-old female presented emergency department with complaint of persistent diarrhea and recently frequency had worsen, poor p.o. intake patient was seen by her GI in the clinic was hypotensive and was sent to emergency department for further evaluation most likely secondary to dehydration due to diarrhea and poor p.o. intake, patient is being hydrated with IVF, stool cultures are pending, patient empirically started on Flagyl, urine also suspicious for UTI and patient is being treated with ceftriaxone, patient seen by GI recommending colonoscopy to further evaluate, patient had a colonoscopy which showed non specific colitis and ascending colon, biopsies and cytologies taken further recommendation to follow, patient has a hyponatremia hypokalemia most likely secondary to dehydration and poor p.o. patient localizes her improving, will supplement and monitor, and further recommendation to follow (3) Diarrhea: Qualifiers: Diarrhea type: unspecified type Qualified Code(s): R19.7 - Diarrhea, unspecified Code(s): R19.7 - Diarrhea, unspecified Status: Acute Assessment and Plan: -the patient was in seeing GI specialist when she became symptomatic. -no GI is available here at this point but she will need to follow-up with GI. -stool cultures are pending. -the patient had a CT of the abdomen with several days ago. Which is listed above. -the patient was started on Questran. -continue with Bentyl (4) Dizziness: Code(s): R42 - Dizziness and giddiness Status: Acute Assessment and Plan: -most likely related to the dehydration. -check orthostatic blood pressures. -continue with IV fluids. As the patient had been hypotensive and responded to the fluids. (5) Hypotension: Code(s): I95.9 - Hypotension, unspecified Status: Acute Assessment and Plan: -most likely related to dehydration. -continue with IV fluids is the blood pressure did respond to the fluids. -could also be related to infection with the UTI. -holding lisinopril (6) High cholesterol: Code(s): E78.00 - Pure hypercholesterolemia, unspecified Status: Acute Assessment and Plan: -continue with atorvastatin. (7) Hyponatremia: Code(s): E87.1 - Hypo-osmolality and hyponatremia Status: Acute Assessment and Plan: -continue with IV fluids and recheck electrolytes this evening. -check urine for osmolarity and electrolytes. (8) Acute renal failure: Code(s): N17.9 - Acute kidney failure, unspecified Status: Acute Assessment and Plan: -most likely pre renal azotemia related to the dehydration from the diarrhea. -avoid any nephrotoxic medications. -holding lisinopril Subjective Date/time seen: 06/16/22 17:50 06/16/2022 interval history: patient is 77-year-old female presented emergency department with complaint of persistent diarrhea and recently frequency had worsen, poor p.o. intake patient was seen by her GI in the clinic was hypotensive and was sent to emergency department for further evaluation most likely secondary to dehydration due to diarrhea and poor p.o. intake, patient is being hydrated with IVF, stool cultures are pending, patient empirically started on Flagyl, urine also suspicious for UTI and patient is being treated with ceftriaxone, patient seen by GI
[2022-06-16] MEDS: ATORVASTATIN 10 MG TABLET PO (20:37)
[2022-06-17 05:13] VITALS: BP 153/52; PULSE 69; RESP 24; TEMP 36.6; O2SAT 99
[2022-06-17 06:23] LABS: Hematocrit 31.1 % (37.0-47.0); Hemoglobin 10.3 g/dL (12.0-15.0); Mean Corpuscular HGB Conc 33.1 g/dl (32-36); Mean Corpuscular Hemoglobin 29.1 pg (26-34); Mean Corpuscular Volume 87.9 fl (80-100); Mean Platelet Volume 10.9 fl (7.4-10.4); Platelet Count Result 159 k/mm3 (150-375); Red Blood Count 3.54 M/mm3 (4.2-5.4); Red Cell Distribution Width 13.1 % (11.5-14.5); White Blood Count 6.5 K/mm3 (4.5-10.0)
[2022-06-17 06:40] LABS: Albumin Level 2.9 g/dL (3.5-5.1); Anion Gap 9 mmol/L (8-16); Calcium 7.5 mg/dL (8.4-10.2); Carbon Dioxide 22 mmol/L (22-30); Chloride 108 mmol/L (98-107); Estimated CRCL calculation 61 ml/min; Estimated Glomerular Filt Rate > 60; Glucose 94 mg/dL (65-110); Magnesium 1.7 mg/dL (1.6-2.3); Phosphorus 2.4 mg/dL (2.5-4.5); Potassium 2.9 mmol/L (3.4-5.0); Sodium 139 mmol/L (137-145)
[2022-06-17 07:54] LABS: Blood Urea Nitrogen < 2 mg/dL (7-17)
[2022-06-17 08:00] VITALS: BP 136/59
[2022-06-17] MEDS: MESALAMINE 400 MG DELAYED RELEASE CAPSULE 800 MG PO (08:04)
[2022-06-17] MEDS: CEFDINIR 300 MG CAPSULE PO (08:04)
[2022-06-17] MEDS: CALCIUM CARBONATE (OSCAL) 500 MG TABLET PO (08:04)
--- NOTE | 2022-06-17 08:13 | WPDGIPROGNO ---
Progress Note: A&P Assessment and Plan (1) Diarrhea: Qualifiers: Diarrhea type: unspecified type Qualified Code(s): R19.7 - Diarrhea, unspecified Code(s): R19.7 - Diarrhea, unspecified Status: Acute Assessment and Plan: Patient complains of ongoing diarrhea but appears to be resolved today. Diarrhea appears to be intermittent. Colonoscopy performed yesterday revealed nonspecific colitis in the ascending colon. Biopsies were taken histology pending. Additionally serology for IBD is taken. Grossly somewhat suspicious for infectious etiology I would plan empiric antibiotics for 7-10 days. Because of her recurrent nature of diarrhea and colitis evident on exam patient has been given a trial of mesalamine which I would advise taking until seen in the office in follow-up. Plan office follow-up in the GI office in 1 month. At this point patient can be discharged from my perspective all labs pending should be forwarded to GI office for review. Subjective Date/time seen: 06/17/22 08:13 Patient alert comfortable this morning. States she has no more diarrhea. Anxious to go home. Denies abdominal pain. Review of Systems Review of Systems: Review of systems noncontributory. Exam Narrative: Physical exam reveals patient be alert. She is afebrile and anicteric. Lungs are clear to auscultation and percussion. Heart is without murmur or extra sounds. Abdomen bowel sounds are present soft nontender with no organomegaly somewhat obese in nature. Objective Data Vital Signs Vital Signs: Vital Signs - 24 hr 06/16/22 13:29 06/16/22 14:29 06/16/22 14:39 Temperature 97.4 F L Pulse Rate 80 65 65 Respiratory Rate 20 16 24 H Blood Pressure 140/114 H 82/36 L 109/53 L Pulse Oximetry 100 100 100 Oxygen Delivery Room Air Room Air Room Air 06/16/22 14:49 06/16/22 15:33 06/16/22 21:28 Temperature 98.1 F 97.6 F Pulse Rate 67 74 69 Respiratory Rate 20 18 20 Blood Pressure 140/79 166/69 H 145/52 H Pulse Oximetry 100 96 99 Oxygen Delivery Room Air 06/16/22 21:28 06/16/22 21:30 06/16/22 21:32 Temperature Pulse Rate 69 75 79 Respiratory Rate 20 20 20 Blood Pressure 145/52 H 155/67 H 153/59 H Pulse Oximetry 99 100 99 Oxygen Delivery 06/16/22 20:00 06/17/22 05:13 Temperature 98 F Pulse Rate 79 69 Respiratory Rate 20 24 H Blood Pressure 153/52 H Pulse Oximetry 99 99 Oxygen Delivery Room Air Intake/Output Intake/Output: Intake & Output 06/14/22 06/15/22 06/16/22 06/17/22 23:59 23:59 23:59 23:59 Intake Total 4712 5310 2540 300 Output Total 1305 1601 1400 1400 Balance 3407 3709 1140 -1100 Meds/Results Medications: Active Medications Generic Name Dose Route Start Last Admin Trade Name Freq PRN Reason Stop Dose Admin Alendronate Sodium 70 mg 06/18/22 06:30 Alendronate Sodium 70 Mg Tablet PO We@0630 CARITO Atorvastatin Calcium 10 mg 06/13/22 21:00 06/16/22 20:37 Atorvastatin 10 Mg Tablet PO 10 mg HS CARITO Administration Calcium Carbonate 500 mg 06/13/22 17:00 06/17/22 08:04 Calcium Carbonate (Oscal) 500 Mg Tablet PO 500 mg BID CARITO Administration Cefdinir 300 mg 06/16/22 14:00 06/17/22 08:04 Cefdinir 300 Mg Capsule PO 06/17/22 21:01 300 mg Q12HR CARITO Administration Cholestyramine Resin 4 gm 06/13/22 18:00 06/16/22 18:00 Cholestyramine (W/ Sugar) 4 Gm Powd.Pack PO Not Given BID@1000,1800 CARITO Dicyclomine HCl 10 mg 06/13/22 16:27 06/13/22 20:54 Dicyclomine Hcl 10 Mg Capsule PO 10 mg TID PRN Administration Abdominal Cramping Sodium Chloride 1,000 mls @ 125 mls/hr 06/13/22 13:15 06/17/22 00:30 Normal Saline Iv IV CONT Not Given .Q8H CARITO Mesalamine 800 mg 06/16/22 17:00 06/17/22 08:04 Mesalamine 400 Mg Delayed Release Capsule PO 800 mg TID CARITO Administration Ondansetron HCl 4 mg 06/13/22 16:24 Ondansetron Inj 4 Mg/2 Ml Vial IV PUSH Q4H PRN Nausea And
[2022-06-17 08:55] VITALS: BP 149/65; BP 154/69
[2022-06-17] MEDS: POTASSIUM CHLORIDE 20 MEQ PACKET (FOR LIQUID) 40 MEQ PO ×2 (09:14→11:01)
[2022-06-17] MEDS: PANTOPRAZOLE 40 MG TABLET PO (10:14)
--- NOTE | 2022-06-17 10:32 | WPDANESPN ---
Anes - Prog Note Post-Op Date/Time: 06/17/22 09:17 Cardiovascular status: normal Respiratory status: normal Airway patency: baseline Mental status: baseline Post-Op hydration status: normal Vital Signs: Last Vital Signs Temp 98 F 06/17/22 05:13 Pulse 69 06/17/22 05:13 Resp 24 H 06/17/22 05:13 BP 154/69 H 06/17/22 08:55 Pulse Ox 99 06/17/22 05:13 O2 Del Method Room Air 06/16/22 20:00 Pain Score (VAS): 0 I/O: Intake & Output 06/16/22 06/17/22 06/17/22 23:59 07:59 15:59 Intake Total 1490 300 238 Output Total 800 1400 Balance 690 -1100 238 Laboratory Tests 06/17/22 06:01 06/17/22 06:01 06/16/22 06/17/22 06/17/22 15:30 06:01 06:01 WBC 6.5 RBC 3.54 L Hgb 10.3 L Hct 31.1 L MCV 87.9 MCH 29.1 MCHC 33.1 RDW 13.1 Plt Count 159 MPV 10.9 H Sodium 139 Potassium 2.9 L Chloride 108 H Carbon Dioxide 22 Anion Gap 9 BUN < 2 L Creatinine 0.70 Estim Creat Clear Calc 61 Estimated GFR > 60 Glucose 94 Calcium 7.5 L Phosphorus 2.4 L Magnesium 1.7 Albumin 2.9 L ANCA Screen Pending Proteinase 3 (PR3) Ab Pending Myeloperoxidase Ab Pending S.cerevisiae IgG Ab Pending S.cerevisiae IgA Ab Pending Microbiology 06/13/22 14:31 Stool Escherichia coli Shiga Toxins - Final 06/13/22 14:31 Stool Salmonella/Shigella Culture - Final 06/13/22 14:31 Stool Campylobacter Antigen Assay - Final 06/13/22 14:31 Stool Giardia Antigen (JEANNE) - Final Post-procedural complaints: none Patient Feedback: Patient satisfied with anesthetic care.
--- NOTE | 2022-06-17 11:25 | PM.DS ---
DS: Admitting Diagnosis Discharge Date 06/17/2022 Admitting Diagnosis Nausea vomiting diarrhea. DS: Discharge Diagnosis Discharge Diagnosis (1) Hypokalemia: Code(s): E87.6 - Hypokalemia Status: Acute Assessment and Plan: -her potassium was 3.0 and had been replaced. -will check her potassium later on tonight as well as her magnesium. (2) Acute UTI: Code(s): N39.0 - Urinary tract infection, site not specified Status: Acute Assessment and Plan: -the patient has been started on Rocephin. -could be related to diarrhea. -the patient had Klebsiella pneumoniae in February of this year. -blood and urine cultures are pending. 06/16/2022 interval history: patient is 77-year-old female presented emergency department with complaint of persistent diarrhea and recently frequency had worsen, poor p.o. intake patient was seen by her GI in the clinic was hypotensive and was sent to emergency department for further evaluation most likely secondary to dehydration due to diarrhea and poor p.o. intake, patient is being hydrated with IVF, stool cultures are pending, patient empirically started on Flagyl, urine also suspicious for UTI and patient is being treated with ceftriaxone, patient seen by GI recommending colonoscopy to further evaluate, patient had a colonoscopy which showed non specific colitis and ascending colon, biopsies and cytologies taken further recommendation to follow, patient has a hyponatremia hypokalemia most likely secondary to dehydration and poor p.o. patient localizes her improving, will supplement and monitor, and further recommendation to follow (3) Diarrhea: Qualifiers: Diarrhea type: unspecified type Qualified Code(s): R19.7 - Diarrhea, unspecified Code(s): R19.7 - Diarrhea, unspecified Status: Acute Assessment and Plan: -the patient was in seeing GI specialist when she became symptomatic. -no GI is available here at this point but she will need to follow-up with GI. -stool cultures are pending. -the patient had a CT of the abdomen with several days ago. Which is listed above. -the patient was started on Questran. -continue with Bentyl (4) Dizziness: Code(s): R42 - Dizziness and giddiness Status: Acute Assessment and Plan: -most likely related to the dehydration. -check orthostatic blood pressures. -continue with IV fluids. As the patient had been hypotensive and responded to the fluids. (5) Hypotension: Code(s): I95.9 - Hypotension, unspecified Status: Acute Assessment and Plan: -most likely related to dehydration. -continue with IV fluids is the blood pressure did respond to the fluids. -could also be related to infection with the UTI. -holding lisinopril (6) High cholesterol: Code(s): E78.00 - Pure hypercholesterolemia, unspecified Status: Acute Assessment and Plan: -continue with atorvastatin. (7) Hyponatremia: Code(s): E87.1 - Hypo-osmolality and hyponatremia Status: Acute Assessment and Plan: -continue with IV fluids and recheck electrolytes this evening. -check urine for osmolarity and electrolytes. (8) Acute renal failure: Code(s): N17.9 - Acute kidney failure, unspecified Status: Acute Assessment and Plan: -most likely pre renal azotemia related to the dehydration from the diarrhea. -avoid any nephrotoxic medications. -holding lisinopril DS: Summary Hospital Course Reason for hospitalization: Nausea vomiting diarrhea. Narrative: This is a 77-year-old female patient who stated that she has had diarrhea since her last admission here in February.? The patient stated she had been on antibiotics in February.? She stated that she has loose stools maybe 3 to 4 times a day.? She stated she has been taking some medication that is been helping with that.? However today the patient came to the emergency room with complaints of worsening dizziness and light
--- NOTE | 2022-06-17 13:24 | P.CDI_ITS ---
CDI Query Clarification Request ?06/17 GI progress note: Diarrhea: ?Qualifiers: ?Diarrhea type:?unspecified type? Qualified Code(s):?R19.7 - Diarrhea, unspecified ?Code(s): R19.7 - Diarrhea, unspecified ?Status:?Acute ?Assessment and Plan: ? Patient complains of ongoing diarrhea but appears to be resolved today.? Diarrhea appears to be intermittent.? Colonoscopy performed yesterday revealed nonspecific colitis in the ascending colon.? Biopsies were taken histology pending.? Additionally serology for IBD is taken.? Grossly somewhat suspicious for infectious etiology I would plan empiric antibiotics for 7-10 days.? Because of her recurrent nature of diarrhea and colitis evident on exam patient has been given a trial of mesalamine which I would advise taking until seen in the office in follow-up.? Plan office follow-up in the GI office in 1 month.? At this point patient can be discharged from my perspective all labs pending should be f orwarded to GI office for review. 06/16 Colonoscopy report: Impression: Colitis Internal Hemorrhoids Diverticulosis without Perforation or Abscess without Bleeding Please clarify if diagnosis Colitis has been ruled in or ruled out. If ruled in please add to problem list. <Crystal Elias - Last Filed: 06/17/22 13:28> Clarified Diagnosis Clarified Diagnosis: patient had a colonoscopy and showed nonspecific colitis in the ascending colon however GI suspected patient may have infectious colitis and recommended continue antibiotics. <Darell Vora MD - Last Filed: 06/29/22 18:42>
[2022-06-20 21:55] LABS: ANCA Screen Negative (Negative); Myeloperoxidase Ab <1.0 AI (<1.0); Proteinase-3 Ab <1.0 AI (<1.0); S cerevisiae Ab (IgA) 4.7 U (<=20.0); S cerevisiae Ab (IgG) 7.1 U (<=20.0)
== END 2022-06-17 11:55 | disposition home or self-care (01) | DRG 392 ==
LOC: ANHED 12:59 → ANH3MEDSUR 14:33
PROVIDERS: Internal Medicine Gastroenterology; Nurse Practitioner; Admitting Provider Student in an Organized Health Care Education/Training Program; Emergency Provider Emergency Medicine; PCP Family Medicine; Visit Provider Family Medicine
PROC: 0DJD8ZZ Inspection of Lower Intestinal Tract, Via Natural or Artificial Opening Endoscopic (ICD-10-PCS; CPT 45378; principal; 2022-06-16 14:30)
DX: A09 Infectious gastroenteritis and colitis, unspecified (principal); N39.0 Urinary tract infection, site not specified; N17.9 Acute kidney failure, unspecified; E87.1 Hypo-osmolality and hyponatremia; I95.9 Hypotension, unspecified; E87.6 Hypokalemia; E86.0 Dehydration; K64.8 Other hemorrhoids; K57.30 Diverticulosis of large intestine without perforation or abscess without bleeding; R63.4 Abnormal weight loss; E78.00 Pure hypercholesterolemia, unspecified; I10 Essential (primary) hypertension; M81.0 Age-related osteoporosis without current pathological fracture; J44.9 Chronic obstructive pulmonary disease, unspecified; F17.210 Nicotine dependence, cigarettes, uncomplicated; Z23 Encounter for immunization; Z79.899 Other long term (current) drug therapy
CPT/HCPCS: 36415; 80048; 80053; 80069; 81001; 83605; 83690; 83735; 83935; 84100; 84133; 85025; 85027; 86036; 86671; 87040; 87045; 87077; 87086; 87186; 87269; 87272; 87427; 87493; 88305; 89055; 90471; 90694; 96361; 96365; 96367; 96375; 96376; 99285; A9270; C9113; G0008; G0378; J0696; J2704; J3475; J3480; J7030; J7040; J7120

== ENCOUNTER → 2022-07-16 14:39 | Outpatient (CLI) | payer MEDICARE, SELFPAY ==
--- NOTE | ~2022-07-16 | MM_ITS ---
EXAMINATION: MM screening vin[facility] BI w [facility] HISTORY: Screening TECHNIQUE: Craniocaudal and mediolateral oblique 3-D tomosynthesis images were obtained and synthetic 2-D images were generated. CAD analysis was submitted and interpreted. COMPARISON: Comparison to multiple prior studies sequentially, with oldest reviewed study dated 05/29. BREAST PARENCHYMAL COMPOSITION: The breasts are almost entirely fatty. FINDINGS: There is no evidence of suspicious mass, calcification, or architectural distortion to sugg est malignancy in either breast. There has been no suspicious interval change. IMPRESSION: 1. No mammographic evidence of malignancy. 2. Recommend routine screening mammography in one year. BI-RADS Category 1: Negative Reviewed, dictated and finalized at location A. NCIAL ADVISOR
== END ==
PROVIDERS: PCP Family Medicine; Visit Provider Family Medicine
DX: Z12.31 Encounter for screening mammogram for malignant neoplasm of breast (principal)
CPT/HCPCS: 77063; 77067

== ENCOUNTER 2022-11-06 07:34 | Outpatient (CLI) | payer MEDICARE, SELFPAY ==
[2022-11-06 08:20] LABS: Basophils Percent Auto 0.6 % (0.2-1.2); Eosinophils Absolute Auto 0.1 K/mm3 (0-0.3); Eosinophils Percent Auto 2.2 % (0-4.4); Hematocrit 40.7 % (37.0-47.0); Immature Granulocyte Absolute 0.03 K/mm3 (0.00-0.031); Immature Granulocyte Percent A 0.5 % (0-0.5); Lymphocytes Absolute Auto 1.91 K/mm3 (0.9-3.2); Lymphocytes Percent Auto 30.1 % (18.3-44.2); Mean Corpuscular HGB Conc 31.9 g/dl (32-36); Mean Corpuscular Hemoglobin 29.5 pg (26-34); Mean Corpuscular Volume 92.5 fl (80-100); Mean Platelet Volume 11.3 fl (7.4-10.4); Monocytes Absolute Auto 0.6 K/mm3 (0.1-0.6); Monocytes Percent Auto 10.1 % (2.6-8.5); Neutrophils Absolute Auto 3.6 K/mm3 (1.3-6.7); Neutrophils Percent Auto 56.5 % (45.5-73.1); Platelet Count Result 196 k/mm3 (150-375); Red Cell Distribution Width 13.2 % (11.5-14.5); White Blood Count 6.4 K/mm3 (4.5-10.0)
[2022-11-06 08:26] LABS: Appearance Urine Clear (Clear); Bacteria Urine None Seen /hpf; Bilirubin Urine Negative (Negative); Blood Urine Negative (Negative); Color Urine Yellow (Yellow); Glucose Urine UA Negative (Negative); Ketones Urine Negative (Negative); Leukocyte Esterase Ur Trace LEU/UL (Negative); Nitrate Urine Negative (Negative); Non Pathogenic Casts 0-2; Protein Urine Negative (Negative); RBC Urine 0-2 /hpf (0-2); Specific Grav Ur 1.007 (1.001-1.035); Squamous Epithelial Cell Urine Few /hpf (Few); Urobilinogen Urine 0.2 mg/dL (<2.0); WBC Urine 0-5 /hpf; pH Urine 6.5 (5.0-9.0)
[2022-11-06 08:40] LABS: Anion Gap 5 mmol/L (8-16); Blood Urea Nitrogen 10 mg/dL (7-17); Carbon Dioxide 29 mmol/L (22-30); Chloride 103 mmol/L (98-107); Estimated Glomerular Filt Rate > 60; Glucose 99 mg/dL (65-110); Potassium 3.9 mmol/L (3.4-5.0); Sodium 137 mmol/L (137-145)
--- NOTE | 2022-11-06 08:52 | ECG_ITS ---
Measurements Intervals [place] Rate: 65 P: 71 VT: 183 QRS: 42 QRSD: 77 T: 66 QT: 393 QTc: 410 Interpretive Statements SINUS RHYTHM LOW QRS VOLTAGE IN PRECORDIAL LEADS BASELINE ARTIFACT- I, II, AVR, AVF BORDERLINE ECG NO PREVIOUS ECG AVAILABLE FOR COMPARISON Electronically Signed On 11-06-2022 9:50:36 CONSTRUCTION CHECKER by Duke Rivera D.O.
[2022-11-06 09:22] LABS: Add Urine Microscopic? YES
== END 2022-11-06 07:35 | disposition home or self-care (01) ==
PROVIDERS: PCP Family Medicine; Visit Provider Nurse Practitioner Family
DX: M17.11 Unilateral primary osteoarthritis, right knee (principal); F17.210 Nicotine dependence, cigarettes, uncomplicated; I95.9 Hypotension, unspecified; R94.31 Abnormal electrocardiogram [ECG] [EKG]
CPT/HCPCS: 36415; 80048; 81001; 85025; 93005

== ENCOUNTER 2022-11-28 07:45 | Outpatient (CLI) | payer MEDICARE, SELFPAY ==
[2022-11-28 09:15] LABS: Appearance Urine Clear (Clear); Bilirubin Urine Negative (Negative); Blood Urine Negative (Negative); Color Urine Yellow (Yellow); Glucose Urine UA Negative (Negative); Ketones Urine Negative (Negative); Leukocyte Esterase Ur Negative LEU/UL (Negative); Nitrate Urine Negative (Negative); Protein Urine Negative (Negative); Specific Grav Ur 1.006 (1.001-1.035); Urobilinogen Urine 0.2 mg/dL (<2.0)
[2022-11-28 09:22] LABS: Urine Cotinine NEGATIVE
[2022-11-28 09:23] LABS: INR 1.1; Partial Thromboplastin Time 30.7 SECONDS (22.3-36.8); Prothrombin Time 13.8 Seconds (11.1-14.7)
[2022-11-28 09:29] LABS: Add Urine Microscopic? NO
[2022-11-28 09:57] LABS: Hemoglobin A1C 5.4 % (<5.7)
== END 2022-11-28 07:46 | disposition home or self-care (01) ==
LOC: ANHSURGERY 07:49
PROVIDERS: PCP Family Medicine; Visit Provider Orthopaedic Surgery
DX: M17.11 Unilateral primary osteoarthritis, right knee (principal); Z01.818 Encounter for other preprocedural examination
CPT/HCPCS: 80307; 81003; 82040; 83036; 85610; 85730; 87081

== ENCOUNTER 2022-12-11 08:23 | Outpatient (CLI) | payer MEDICARE, SELFPAY ==
--- NOTE | ~2022-12-11 | US_ITS ---
EXAMINATION: US art doppler w press LE BI DATE: 12/11/2022 09:55 INDICATION: Peripheral vascular disease. TECHNIQUE: Segmental pressures and plethysmographic and Doppler waveforms of the brachial and lower e xtremity arteries were obtained. COMPARISON: None. FINDINGS: Right and left brachial artery pressures of 147 mm Hg and 138 mm Hg, respectively, are concordant (no rmal difference <= 30 mmHg). The right high-thigh pressure index is 0.84 (normal > 1.2). The right ankle-brachial index (ELLIE) is 0 .69 (normal >= 0.9-1.0). The right great toe-brachial index (TBI) is 0.48 (normal >= 0.65). The right lower extremity segmental pressure gradients are increased between the lower thigh and below-knee me asurements (normal gradients <= 20-30 mmHg between adjacent levels on the same leg or the same levels on the two legs). Arterial Doppler waveforms are biphasic from common femoral artery to the ankle. The left high-thigh pressure index is 1.03. The left ELLIE is 0.84. The left TBI is 0.48. The left lowe r extremity segmental pressure gradients are increased between the lower thigh and below-knee measure ments. Arterial Doppler waveforms are biphasic from common femoral artery to the ankle. IMPRESSION: 1. Moderately decreased right ELLIE and mildly decreased left ELLIE, consistent with arterial occlusive d isease, likely multifocal. Reviewed, dictated and finalized at location A. IMPRESSION: 1. Moderately decreased right ELLIE and mildly decreased left ELLIE, consistent wit h arterial occlusive disease, likely multifocal.
== END 2022-12-11 08:24 | disposition home or self-care (01) ==
PROVIDERS: PCP Family Medicine; Visit Provider Orthopaedic Surgery
DX: I73.9 Peripheral vascular disease, unspecified (principal)
CPT/HCPCS: 93923

== ENCOUNTER 2023-01-19 01:05 | Day surgery (SDC) | payer MEDICARE, SELFPAY ==
[2023-01-16 14:45] VITALS: BMI 34.9
[2023-01-19 12:17] VITALS: BP 119/88; PULSE 85; RESP 20; TEMP 36.5; O2SAT 98
--- NOTE | 2023-01-19 12:41 | WPDANESEPPF ---
Anes - Initial Pre Proc Eval Procedure: Operation Date: 01/19/23 13:00 Proposed Procedures p Esophagogastroduodenoscopy - Beau Nails MD Date/Time: 01/19/23 12:41 Surgeon: Beau Nails MD Pre Op Diagnosis: Nausea, vomiting Patient Data Age: 77 Gender: F Height: 1.55 m Weight: 82.2 kg Last Vital Signs Temp 97.7 F 01/19/23 12:17 Pulse 85 01/19/23 12:17 Resp 20 01/19/23 12:17 BP 119/88 01/19/23 12:17 Pulse Ox 98 01/19/23 12:17 O2 Del Method Room Air 01/19/23 12:17 Allergies Allergy/AdvReac Type Severity Reaction Status Date / Time No Known Allergies Allergy Unknown Verified 01/19/23 12:16 Home Medications Medication Instructions Recorded Confirmed Type alendronate 70 mg tablet 70 mg PO WEEKLY 08/18/19 01/16/23 History atorvastatin 10 mg tablet 10 mg PO HS 08/18/19 01/16/23 History calcium carbonate 500 mg calcium 500 mg PO BID 08/18/19 01/16/23 History (1,250 mg) tablet (Calcium 500) lisinopril 40 mg tablet 40 mg PO QAM 08/18/19 01/16/23 History acetaminophen 650 mg 1,300 mg PO Q12H PRN Pain 11/28/22 01/16/23 History tablet,extended release cholecalciferol (vitamin D3) 125 125 mcg PO DAILY 11/28/22 01/16/23 History mcg (5,000 unit) capsule omeprazole 40 mg capsule,delayed See Rx Instructions .Route 01/14/23 01/16/23 Rx release .COMPLEX #90 caps rifaximin 550 mg tablet (Xifaxan) 550 mg PO TID 2 weeks #42 tabs 01/14/23 01/16/23 Rx Patient hx anesthesia problems: none Family hx anesthesia problems: none Results Review: All pre-operative results and documents have been reviewed as part of the pre-operative evaluation. [facility] Past Medical History Medical History Arterial occlusive disease COPD (chronic obstructive pulmonary disease) Dizziness High cholesterol Hypotension Knee effusion Left knee DJD Liver lesion Nausea & vomiting Obesity Right knee DJD Right knee pain Sleep apnea Known longer uses her CPAP Smoking Surgical History Surgical History H/O cataract extraction History of carpal tunnel release Family History Family History Father Kidney disease Mother MVA (motor vehicle accident) Sibling Diabetes mellitus Social History Social History Social History: The patient lives with her who is the poa and they have 2 children. She socially drinks. She continues to smoke 1 pack a cigarettes a day. I did offer her smoking cessation and she is not interested at this time. The patient . Code status full code Smoking packs per day: 1 Smoking cigarettes per day: 20.0 Years smoked: 60 Smoking pack-years: 60.00 Smoking status: Former smoker Tobacco type: cigarettes Smoking end date: 09/22/22 Alcohol intake: never Drinks per week: 5 Substance use: never Substance use type: does not use Living arrangements: with family Additional living arrangements comments: [place] Occupation/Education: retired Gender identity (if verbalized by the patient): Female Spiritual care concerns: No Anes - Eval Final PreProcedure Day of Procedure 01/19/23 12:41 Patient weight: obese Heart: regular rate and rhythm Lungs: clear to auscultation Airway: Mallampati scale class III Neurological: alert and oriented Last oral intake: >/= 8 hours ASA classification: III Emergent: no Anesthetic plan: proceed Anesthesia type and monitoring: general GIVS and standard monitoring Results Review: All pre-operative results and documents have been reviewed as part of the pre-operative evaluation. Informed Consent: The patient's anesthetic plan and its attendant risks and benefits were discussed with the patient/family/POA. Questions were solicited and answers provided to the satisfaction of the patient/family/POA.
--- NOTE | 2023-01-19 12:43 | WPDHPUPDATE1 ---
History and Physical Update Update Date/Time: 01/19/23 12:43 History and Physical has been reviewed, including an updated exam of the patient. There are NO changes in the patient's condition. Risks, benefits, and alternatives have been discussed and questions answered. Patient agrees to proceed with procedure.
[2023-01-19] MEDS: LACTATED RINGERS 1,000 ML 150 ML IV CONT ×2 (13:00→13:59)
[2023-01-19 14:13] VITALS: BP 107/49; PULSE 71; RESP 24; O2SAT 99
[2023-01-19 14:23] VITALS: BP 127/55; PULSE 73; RESP 20; O2SAT 100
[2023-01-19 14:33] VITALS: BP 132/64; PULSE 74; RESP 19; O2SAT 100
== END 2023-01-19 14:48 | disposition home or self-care (01) ==
PROVIDERS: PCP Family Medicine; Visit Provider Internal Medicine Gastroenterology
PROC: 0DJ08ZZ Inspection of Upper Intestinal Tract, Via Natural or Artificial Opening Endoscopic (ICD-10-PCS; CPT 43235; principal; 2023-01-19 13:00)
DX: R11.2 Nausea with vomiting, unspecified (principal); Q39.4 Esophageal web; R19.7 Diarrhea, unspecified; E78.00 Pure hypercholesterolemia, unspecified; Z87.891 Personal history of nicotine dependence; R68.81 Early satiety; I10 Essential (primary) hypertension; E66.9 Obesity, unspecified
CPT/HCPCS: 43450; 43239; 87081; J2704; J7120

== ENCOUNTER 2023-01-28 07:11 | Outpatient (CLI) | payer MEDICARE, SELFPAY ==
--- NOTE | ~2023-01-28 | NM_ITS ---
EXAM: NM gastric emptying study DATE: 01/28/2023 12:54 INDICATION: Nausea with vomiting TECHNIQUE: A gastric emptying study was performed using the methodology of Clarke EMERSON, et al. J Nucl Med 2007; 48:568-572. The patient was given a meal consisting of 2 scrambled eggs labeled with 1.045 mCi Tc-99m sulfur colloid, 2 slices of toast, two packages of jam, and approximately 120 mL of water . Simultaneous anterior and posterior 1-min images of the abdomen were obtained with the patient supi ne at multiple time points over a total period of 4 hours. The geometric mean of anterior and posteri or views was determined, and the percentage retention was calculated for each time point. COMPARISON: None. FINDINGS: Gastric retention of the radiotracer-labeled meal was 61%, 45%, and 25% at the 1-hour, 2-hour, and 4- hour time points, respectively. With this technique, apparent rapid gastric emptying is suggested by <30% gastric retention at 1 hour. Delayed gastric emptying is defined by gastric retention of >90% at 1 hour, >60% retention at 2 hours, or >10% retention at 4 hours. IMPRESSION: 1. Delayed gastric emptying. Reviewed, dictated and finalized at location B.
== END 2023-01-28 07:12 | disposition home or self-care (01) ==
PROVIDERS: PCP Family Medicine; Visit Provider Nurse Practitioner Family
DX: R11.2 Nausea with vomiting, unspecified (principal); K30 Functional dyspepsia
CPT/HCPCS: 78264; A9541

== ENCOUNTER 2023-02-06 07:49 | Outpatient (CLI) | payer MEDICARE, SELFPAY ==
[2023-02-06 08:58] LABS: Basophils Absolute Auto 0.1 K/mm3 (0.0-0.1); Basophils Percent Auto 0.9 % (0.2-1.2); Eosinophils Absolute Auto 0.2 K/mm3 (0-0.3); Eosinophils Percent Auto 3.2 % (0-4.4); Hematocrit 36.9 % (37.0-47.0); Hemoglobin 11.5 g/dL (12.0-15.0); Immature Granulocyte Absolute 0.02 K/mm3 (0.00-0.031); Immature Granulocyte Percent A 0.4 % (0-0.5); Lymphocytes Absolute Auto 1.55 K/mm3 (0.9-3.2); Lymphocytes Percent Auto 27.9 % (18.3-44.2); Mean Corpuscular HGB Conc 31.2 g/dl (32-36); Mean Corpuscular Hemoglobin 28.8 pg (26-34); Mean Corpuscular Volume 92.5 fl (80-100); Mean Platelet Volume 11.7 fl (7.4-10.4); Monocytes Absolute Auto 0.5 K/mm3 (0.1-0.6); Monocytes Percent Auto 8.3 % (2.6-8.5); Neutrophils Absolute Auto 3.3 K/mm3 (1.3-6.7); Neutrophils Percent Auto 59.3 % (45.5-73.1); Platelet Count Result 195 k/mm3 (150-375); Red Blood Count 3.99 M/mm3 (4.2-5.4); Red Cell Distribution Width 15.1 % (11.5-14.5); White Blood Count 5.6 K/mm3 (4.5-10.0)
[2023-02-06 09:03] LABS: Appearance Urine Clear (Clear); Bacteria Urine None Seen /hpf; Bilirubin Urine Negative (Negative); Blood Urine Negative (Negative); Color Urine Yellow (Yellow); Glucose Urine UA Negative (Negative); Ketones Urine Negative (Negative); Leukocyte Esterase Ur Trace LEU/UL (Negative); Nitrate Urine Negative (Negative); Non Pathogenic Casts 0-2; Protein Urine Negative (Negative); RBC Urine 0-2 /hpf (0-2); Specific Grav Ur 1.007 (1.001-1.035); Squamous Epithelial Cell Urine Occasional /hpf (Few); Urobilinogen Urine 0.2 mg/dL (<2.0); WBC Urine 0-5 /hpf; pH Urine 5.5 (5.0-9.0)
[2023-02-06 09:08] LABS: Urine Cotinine NEGATIVE
[2023-02-06 09:11] LABS: Add Urine Microscopic? YES; Albumin Level 4.3 g/dL (3.5-5.1); Anion Gap 7 mmol/L (8-16); Blood Urea Nitrogen 10 mg/dL (7-17); Carbon Dioxide 30 mmol/L (22-30); Chloride 101 mmol/L (98-107); Estimated Glomerular Filt Rate > 60; Glucose 98 mg/dL (65-110); Potassium 3.6 mmol/L (3.4-5.0); Sodium 138 mmol/L (137-145)
[2023-02-06 09:17] LABS: Prothrombin Time 13.7 Seconds (11.1-14.7)
[2023-02-06 09:18] LABS: Partial Thromboplastin Time 31.5 SECONDS (22.3-36.8)
== END 2023-02-06 07:50 | disposition home or self-care (01) ==
LOC: ANHSURGERY 07:55
PROVIDERS: PCP Family Medicine; Visit Provider Orthopaedic Surgery
DX: M17.11 Unilateral primary osteoarthritis, right knee (principal); Z01.818 Encounter for other preprocedural examination
CPT/HCPCS: 80048; 80307; 81001; 82040; 85025; 85610; 85730; 86850; 86900; 86901; 87081

== ENCOUNTER 2023-03-10 00:54 | Day surgery (SDC) | payer MEDICARE, SELFPAY ==
[2022-11-28 07:49] VITALS: BP 137/53; PULSE 71; RESP 16; TEMP 37; O2SAT 99; BMI 35.9
--- NOTE | 2022-11-28 08:19 | PC.NURSE ---
Report to the Outpatient Waiting Room, entrance under the green pavilion located off [facility], at time __6:00AM on date __12/16/22 . Planned Procedure Time: __7:30AM . Time changes happen often and if your time is changed the preop area will call you the afternoon before. - You and your visitor will be asked to self-screen and do not enter if you have any COVID symptoms. - Only one visitor is requested with a max of two and NO children visitors are allowed at this time. - The patient visitor may be requested to leave or wait in car when not with patient due to distancing restrictions. - A mask is optional within the hospital at this time. Patients may have clear liquids (water, carbonated beverages, clear teas, apple juice) until 3 hours prior to surgery with a maximum of 20 ounces. - No food from midnight until time of surgery Take the following medications with a SIP of water the morning of surgery: ____NONE DO NOT STOP ANY OF YOUR OTHER PRESCRIPTION MEDICATIONS PRIOR TO SURGERY ?EXCEPT THE FOLLOWING Medications to discontinue per physician ____HOLD ALL VITAMINS/SUPPLEMENTS 7 DAYS PRE-OP PER DR JAMA(PER PATIENT) Date to take last dose____12/09/22 Please no make-up, nail english, hairspray, perfume, deodorant, or body powder the day of surgery. No jewelry (including any body piercings) or valuables the day of surgery, leave them at home. Please take a shower or bath the night before, or the morning of, surgery with an antibacterial soap. Wear comfortable, loose fitting clothing. Children are encouraged to wear pajamas. - Jewelry must be removed prior to entering the operating room. Rings and piercings that are not removed may be cut off. - The hospital will not accept responsibility for valuables. - Please leave all valuables, including medications, at home the day of surgery. If you are going home after surgery, a licensed van driver must drive you home. - NO public transportation without another adult if you receive anesthesia. - We recommend that an adult stay with you for 24 hours following discharge. - We also recommend that you do not drive, make important decision, drink alcoholic beverages, or take any drugs that were not prescribed by your health care provider for at least 24 hours after your discharge time. Follow any additional instructions given to you from your surgeon. If you or anyone in your household have experienced Covid symptoms in the past week, please notify your surgeon or the nurse liaison at the phone number below for possible testing. Telephone instructions given to __PATIENT & HUSBAND and asked if any additional questions and then verbalized understanding. Patient advised to call surgeon office or pre surgery nurse liaison [phone] if any additional questions.
[2023-02-04 14:07] VITALS: BMI 35.9
--- NOTE | 2023-02-04 14:33 | PC.NURSE ---
Report to the Outpatient Waiting Room, entrance under the green pavilion located off [facility], at time __8:30AM on date ___02/11/23____. Planned Procedure Time: ___10:30AM . Time changes happen often and if your time is changed the preop area will call you the afternoon before. - You and your visitor will be asked to self-screen and do not enter if you have any COVID symptoms. - A mask is optional within the hospital at this time. Patients may have clear liquids (water, carbonated beverages, clear teas, apple juice) until 3 hours prior to surgery with a maximum of 20 ounces. - No food from midnight until time of surgery Take the following medications with a SIP of water the morning of surgery: ___NONE DO NOT STOP ANY OF YOUR OTHER PRESCRIPTION MEDICATIONS PRIOR TO SURGERY ?EXCEPT THE FOLLOWING Medications to discontinue per physician ___HOLD ALL VITAMINS/SUPPLEMENTS 7 DAYS PRE-OP PER DR JAMA(PER PATIENT)____ Date to take last dose____02/04/23 Please no make-up, nail danish, hairspray, perfume, deodorant, or body powder the day of surgery. No jewelry (including any body piercings) or valuables the day of surgery, leave them at home. Please take a shower or bath the night before, or the morning of, surgery with an antibacterial soap. Wear comfortable, loose fitting clothing. Children are encouraged to wear pajamas. - Jewelry must be removed prior to entering the operating room. Rings and piercings that are not removed may be cut off. - The hospital will not accept responsibility for valuables. - Please leave all valuables, including medications, at home the day of surgery. If you are going home after surgery, a licensed mobile lounge driver or operator must drive you home. - NO public transportation without another adult if you receive anesthesia. - We recommend that an adult stay with you for 24 hours following discharge. - We also recommend that you do not drive, make important decision, drink alcoholic beverages, or take any drugs that were not prescribed by your health care provider for at least 24 hours after your discharge time. Follow any additional instructions given to you from your surgeon. If you or anyone in your household have experienced Covid symptoms in the past week, please notify your surgeon or the nurse liaison at the phone number below for possible testing. Telephone instructions given to __PATIENT and asked if any additional questions and then verbalized understanding. Patient advised to call surgeon office or pre surgery nurse liaison [phone] if any additional questions.
--- NOTE | 2023-02-10 14:35 | WPDANESEPPF ---
Anes - Initial Pre Proc Eval Procedure: Operation Date: 02/11/23 10:30 Proposed Procedures p Right Total Knee Arthroplasty - Virgil Kearns MD Date/Time: 02/10/23 14:35 Surgeon: Virgil Kearns MD Pre Op Diagnosis: right knee osteoarthritis Patient Data Age: 77 Gender: F Height: 1.56 m Weight: 87.7 kg Last Vital Signs Temp 37.0 C 11/28/22 07:49 Pulse 71 11/28/22 07:49 Resp 16 11/28/22 07:49 BP 137/53 L 11/28/22 07:49 Pulse Ox 99 11/28/22 07:49 O2 Del Method Room Air 11/28/22 07:49 Allergies Allergy/AdvReac Type Severity Reaction Status Date / Time No Known Allergies Allergy Unknown Verified 02/09/23 14:46 Home Medications Medication Instructions Recorded Confirmed Type alendronate 70 mg tablet 70 mg PO WEEKLY 08/18/19 02/04/23 History atorvastatin 10 mg tablet 10 mg PO HS 08/18/19 02/04/23 History calcium carbonate 500 mg calcium 500 mg PO BID 08/18/19 02/04/23 History (1,250 mg) tablet (Calcium 500) lisinopril 40 mg tablet 40 mg PO QAM 08/18/19 02/04/23 History acetaminophen 650 mg 1,300 mg PO Q12H PRN Pain 11/28/22 02/04/23 History tablet,extended release cholecalciferol (vitamin D3) 125 125 mcg PO DAILY 11/28/22 02/04/23 History mcg (5,000 unit) capsule omeprazole 40 mg capsule,delayed 40 mg PO QAM 02/04/23 02/04/23 History release Results Review: All pre-operative results and documents have been reviewed as part of the pre-operative evaluation. [facility] Past Medical History Medical History Arterial occlusive disease COPD (chronic obstructive pulmonary disease) Dizziness High cholesterol HTN (hypertension) Hypotension Knee effusion Left knee DJD Liver lesion Nausea & vomiting Obesity Osteoporosis Right knee DJD Right knee pain Sleep apnea Noncompliant with CPAP Smoking Surgical History Surgical History H/O cataract extraction History of carpal tunnel release Family History Family History Father Kidney disease Mother MVA (motor vehicle accident) Sibling Diabetes mellitus Social History Social History Social History: The patient lives with her who is the poa and they have 2 children. She socially drinks. She continues to smoke 1 pack a cigarettes a day. I did offer her smoking cessation and she is not interested at this time. The patient . Code status full code Smoking packs per day: 1 Smoking cigarettes per day: 20.0 Years smoked: 60 Smoking pack-years: 60.00 Smoking status: Former smoker Tobacco type: cigarettes Smoking end date: 10/01/22 Alcohol intake: never Drinks per week: 5 Substance use: never Substance use type: does not use Living arrangements: with family Additional living arrangements comments: [place] Occupation/Education: retired Gender identity (if verbalized by the patient): Female Spiritual care concerns: No Anes - Eval Final PreProcedure Day of Procedure 02/10/23 14:35 Patient weight: obese Heart: regular rate and rhythm Lungs: clear to auscultation Airway: Mallampati scale class III Neurological: alert and oriented Last oral intake: >/= 8 hours ASA classification: III Emergent: no Anesthetic plan: proceed Anesthesia type and monitoring: general LMA and standard monitoring Results Review: All pre-operative results and documents have been reviewed as part of the pre-operative evaluation. Informed Consent: The patient's anesthetic plan and its attendant risks and benefits were discussed with the patient/family/POA. Questions were solicited and answers provided to the satisfaction of the patient/family/POA.
--- NOTE | 2023-02-10 14:36 | WPDANESPNB ---
Anes - Peripheral Nerve Block Date/Time: 02/10/23 14:36 I have discussed with the patient/family/POA the placement of a peripheral nerve block for post-operative pain management, including associated risks, benefits, complications, and side effects. Alternative methods of post-operative analgesia were detailed. Questions were solicited and answers provided to the satisfaction of the patient/family/POA. Time-Out: A pre-procedural Time-Out was completed immediately before starting the procedure and confirmed: Patient Identification, Site, Procedure, Patient Position and the Availability of Requisite Equipment. Clinical Indications: Acute post-operative pain management requested by the operative surgeon. Nerve Block Insertion Note Anes-nerve block: adductor canal Patient position: supine Skin prep: chlorhexidine Needle: 22 gauge, stimulating, insulated echogenic needle. Needle length: 80 mm Technique: ultrasound Technique comment: in plane Injectate: bupivacaine 0.25% with epi 5 mcg/ml (30cc) Observations: tolerated well Complications: none
--- NOTE | 2023-02-26 13:38 | PC.NURSE ---
Addendum entered by Zahra Ch RN 02/26/23 13:42: RESTARTED ON [facility] BY PRIMARY ON 02/04/23. Original Note: PT RESCHEDULED BECAUSE OF COMPUTER ISSUES. NEW TIME & DATE GIVEN TO PATIENT, SHE RELAYS UNDERSTANDING. ALL PRE-OP INSTRUCTIONS REVIEWED, PT RELAYS UNDERSTANDING. Report to the Outpatient Waiting Room, entrance under the green pavilion located off [facility], at time _6:30AM on date __03/10/23 . Planned Procedure Time: __8:30AM . Time changes happen often and if your time is changed the preop area will call you the afternoon before. - You and your visitor will be asked to self-screen and do not enter if you have any COVID symptoms. - A mask is optional within the hospital at this time. Patients may have clear liquids (water, carbonated beverages, clear teas, apple juice) until 3 hours prior to surgery with a maximum of 20 ounces. - No food from midnight until time of surgery Take the following medications with a SIP of water the morning of surgery: ___NONE DO NOT STOP ANY OF YOUR OTHER PRESCRIPTION MEDICATIONS PRIOR TO SURGERY ?EXCEPT THE FOLLOWING Medications to discontinue per physician __HOLD ALL VITAMINS/SUPPLEMENTS 7 DAYS PRE-OP PER DR JAMA(PER PATIENT) Date to take last dose____03/03/23 Please no make-up, nail indian, hairspray, perfume, deodorant, or body powder the day of surgery. No jewelry (including any body piercings) or valuables the day of surgery, leave them at home. Please take a shower or bath the night before, or the morning of, surgery with an antibacterial soap. Wear comfortable, loose fitting clothing. Children are encouraged to wear pajamas. - Jewelry must be removed prior to entering the operating room. Rings and piercings that are not removed may be cut off. - The hospital will not accept responsibility for valuables. - Please leave all valuables, including medications, at home the day of surgery. If you are going home after surgery, a licensed special client bus driver must drive you home. - NO public transportation without another adult if you receive anesthesia. - We recommend that an adult stay with you for 24 hours following discharge. - We also recommend that you do not drive, make important decision, drink alcoholic beverages, or take any drugs that were not prescribed by your health care provider for at least 24 hours after your discharge time. Follow any additional instructions given to you from your surgeon. If you or anyone in your household have experienced Covid symptoms in the past week, please notify your surgeon or the nurse liaison at the phone number below for possible testing. Telephone instructions given to __PATIENT and asked if any additional questions and then verbalized understanding. Patient advised to call surgeon office or pre surgery nurse liaison [phone] if any additional questions.
[2023-03-10] VITALS (14 sets, daily range): BP systolic 128–169; BP diastolic 45–77; PULSE 72–93; RESP 14–22; TEMP 36.2–36.8; O2SAT 95–100; BMI 33.5
--- NOTE | ~2023-03-10 | XR_ITS ---
EXAMINATION: [id number] DATE: 03/10/2023 10:55 INDICATION: Postoperative evaluation following right total knee arthroplasty. TECHNIQUE: Anteroposterior and lateral views of the right knee were obtained. COMPARISON: 02/09/2023 FINDINGS: Right total knee arthroplasty without patellar resurfacing appears well seated and in near anatomic a lignment. No fractures identified. Anterior skin carlos and expected postoperative subcutaneous and intra-articular gas. Atherosclerotic calcific a along the popliteal and distal femoral arteries. IMPRESSION: 1. Right total knee arthroplasty, negative for postoperative purposes. Reviewed, dictated and finalized at location A.
[2023-03-10] MEDS: ACETAMINOPHEN 500 MG TABLET 1000 MG PO (07:14)
--- NOTE | 2023-03-10 07:33 | WPDANESEPPF ---
Anes - Initial Pre Proc Eval Procedure: Operation Date: 03/10/23 08:30 Proposed Procedures p Right Total Knee Arthroplasty - Virgil Kearns MD <Joaquin Lala MD - Last Filed: 03/17/23 12:38> Date/Time: 03/10/23 07:33 <Joaquin Lala MD - Last Filed: 03/17/23 12:38> Surgeon: Virgil Kearns MD <Joaquin Lala MD - Last Filed: 03/17/23 12:38> Pre Op Diagnosis: right knee osteoarthritis <Joaquin Lala MD - Last Filed: 03/17/23 12:38> Patient Data Age: 77 Gender: F Height: 1.56 m Weight: 82 kg <Joaquin Lala MD - Last Filed: 03/17/23 12:38> Last Vital Signs Temp 98.2 F 03/10/23 06:30 Pulse 74 03/10/23 06:30 Resp 16 03/10/23 06:30 BP 128/50 L 03/10/23 06:30 Pulse Ox 100 03/10/23 06:30 O2 Del Method Room Air 03/10/23 06:30 <Joaquin Lala MD - Last Filed: 03/17/23 12:38> Allergies Allergy/AdvReac Type Severity Reaction Status Date / Time adhesive tape Allergy Unknown Hives Verified 03/10/23 06:39 <Joaquin Lala MD - Last Filed: 03/17/23 12:38> Home Medications Medication Instructions Recorded Confirmed Type alendronate 70 mg tablet 70 mg PO WEEKLY 08/18/19 02/26/23 History atorvastatin 10 mg tablet 10 mg PO HS 08/18/19 02/26/23 History calcium carbonate 500 mg calcium 500 mg PO BID 08/18/19 03/10/23 History (1,250 mg) tablet (Calcium 500) lisinopril 40 mg tablet 40 mg PO QAM 08/18/19 02/26/23 History acetaminophen 650 mg 1,300 mg PO Q12H PRN Pain 11/28/22 02/26/23 History tablet,extended release cholecalciferol (vitamin D3) 125 125 mcg PO DAILY 11/28/22 03/10/23 History mcg (5,000 unit) capsule hydrochlorothiazide 25 mg tablet 25 mg PO QAM 02/26/23 02/26/23 History omeprazole 40 mg capsule,delayed 40 mg PO QAM 02/26/23 02/26/23 History release aspirin 325 mg tablet,delayed 325 mg PO DAILY dvt prophylaxis 03/11/23 Rx release #20 tabs hydrocodone 5 mg-acetaminophen 325 1 tablet PO Q6H PRN pain #30 tabs 03/11/23 Rx mg tablet <Joaquin Lala MD - Last Filed: 03/17/23 12:38> Patient hx anesthesia problems: none <Kam Escudero DO - Last Filed: 03/10/23 08:48> Family hx anesthesia problems: none <Kam Escudero DO - Last Filed: 03/10/23 08:48> Results Review: All pre-operative results and documents have been reviewed as part of the pre-operative evaluation. <Joaquin Lala MD - Last Filed: 03/17/23 12:38> PMF[facility] Past Medical History Medical History: Medical History Arterial occlusive disease COPD (chronic obstructive pulmonary disease) Dizziness Gastroparesis High cholesterol HTN (hypertension) Hypotension Knee effusion Left knee DJD Liver lesion Nausea & vomiting Obesity Osteoporosis Right knee DJD Right knee pain Sleep apnea Noncompliant with CPAP Smoking <Joaquin Lala MD - Last Filed: 03/17/23 12:38> Surgical History Surgical History: Surgical History H/O cataract extraction History of carpal tunnel release <Joaquin Lala MD - Last Filed: 03/17/23 12:38> Family History Family History: Family History Father Kidney disease Mother MVA (motor vehicle accident) Sibling Diabetes mellitus <Joaquin aLla MD - Last Filed: 03/17/23 12:38> Social History Social History: Social History Social History: The patient lives with her who is the poa and they have 2 children. She socially drinks. She continues to smoke 1 pack a cigarettes a day. I did offer her smoking cessation and she is not interested at this time. The patient . Code status full code Smoking packs per day: 1 Smoking cigarettes per day: 20.0 Years smoked: 60 Smoking pack-years: 60.00 Smoking status: Former smoker Tobacco type: cigarettes Second hand tobacc
[2023-03-10] MEDS: LACTATED RINGERS 1,000 ML 30 ML IV CONT ×2 (07:50→10:43)
[2023-03-10] MEDS: TRANEXAMIC ACID 1,000MG/ISO100 1,000 MG/100 ML BAG 200 MG IVPB (07:55)
--- NOTE | 2023-03-10 08:10 | WPDANESPNB ---
Anes - Peripheral Nerve Block Date/Time: 03/10/23 08:10 I have discussed with the patient/family/POA the placement of a peripheral nerve block for post-operative pain management, including associated risks, benefits, complications, and side effects. Alternative methods of post-operative analgesia were detailed. Questions were solicited and answers provided to the satisfaction of the patient/family/POA. Time-Out: A pre-procedural Time-Out was completed immediately before starting the procedure and confirmed: Patient Identification, Site, Procedure, Patient Position and the Availability of Requisite Equipment. Clinical Indications: Acute post-operative pain management requested by the operative surgeon. Nerve Block Insertion Note Anes-nerve block: adductor canal right Patient position: supine Skin prep: chlorhexidine Needle: 22 gauge, stimulating, insulated echogenic needle. Needle length: 80 mm Technique: ultrasound Injectate: bupivacaine 0.5% with epi 5 mcg/ml (30cc - no epi) Observations: tolerated well Complications: none Procedure start time:: 839 Procedure end time:: 844
--- NOTE | 2023-03-10 08:35 | WPDHPUPDATE1 ---
History and Physical Update Update Date/Time: 03/10/23 08:35 History and Physical has been reviewed, including an updated exam of the patient. There are NO changes in the patient's condition. Risks, benefits, and alternatives have been discussed and questions answered. Patient agrees to proceed with procedure.
[2023-03-10] MEDS: ceFAZolin 2 GM/D5W 50 ML 2 GM/50 ML BAG IVPB ×2 (08:48→17:24)
--- NOTE | 2023-03-10 10:37 | W.PM.PROC2 ---
Procedure Note - Detailed Date of Procedure 03/10/23 Pre-op Diagnosis right knee osteoarthritis Post-op Diagnosis Same Procedure Performed R TKA Surgeon Virgil Kearns MD Anesthesia General Description of Procedure THE RIGHT KNEE WAS PREPPED AND DRAPED IN THE STERILE FASHION. THERE WAS A 10 DEGREE FLEXION CONTRACTURE. A MIDLINE SKIN INCISION WAS MADE. A MEDIAL PARAPATELLAR ARTHROTOMY WAS MADE. THE PATELLA WAS EVERTED. THERE WAS TRICOMPARTMENT DJD. THERE WAS MINIMAL PATELLA DJD. AN INTRAMEDULLARY TONG WAS PLACED IN THE FEMUR. A DISTAL FEMORAL CUT WAS MADE IN 5 DEGREES OF VALGUS REMOVING APPROXIMATELY 9 MM OF BONE FROM THE DISTAL FEMUR. THE FEMUR WAS SIZED TO 60. A 60 FEMORAL CUTTING BLOCK WAS PLACED IN 3 DEGREES OF EXTERNAL ROTATION AND IN ALIGNMENT WITH DEMETRIS'S LINE AND THE TRANSEPICONDYLAR AXIS. ANTERIOR POSTERIOR AND CHAMFER CUTS WERE MADE. THE CUTS WERE EXCELLENT. NEXT AN INTRAMEDULLARY CUTTING GUIDE WAS PLACED IN THE TIBIA. A TRANS TIBIAL CUT WAS MADE ALONG THE LONG AXIS OF THE TIBIA. APPROXIMATELY 10 MM OF BONE WAS REMOVED FROM THE HIGH SIDE OF THE TIBIA. THE TIBIA WAS THEN PLANED TO A SMOOTH SURFACE. POSTERIOR FEMORAL OSTEOPHYTES WERE REMOVED FROM THE FEMORAL CONDYLES. A 67 TIBIAL TRIAL WAS PLACED IN ALIGNMENT WITH THE 1/3 MEDIAL ASPECT OF THE TIBIAL TUBERCLE. THEN A 60 FEMORAL TRIAL COMPONENT WAS PLACED. BOTH HAD EXCELLENT FITS. EVENTUALLY A 10 MM CR POLYETHYLENE TRIAL COMPONENT WAS PLACED. THE KNEE WAS TAKEN THROUGH A RANGE OF MOTION. THE KNEE CAME OUT TO FULL EXTENSION. THERE WAS NO ABNORMAL TILT TO THE PATELLA. THERE WAS GOOD A/P AND VARUS/VALGUS STABILITY. THERE WAS NO EXCESSIVE ROLL BACK WITH FLEXION. THE TRIAL COMPONENTS WERE REMOVED. THEN A 60 FEMORAL COMPONENT AND 67 TIBIAL COMPONENT WITH A 10 CR POLYETHYLENE COMPONENT WERE CEMENTED INTO PLACE. ONCE THE CEMENT WAS HARD THE KNEE WAS TAKEN THROUGH A ROM AGAIN AND FOUND TO BE STABLE WITH NO PATELLA TILT NO EXCESSIVE ROLL BACK WITH FLEXION AND GOOD STABILITY WITH COMPLETE AND FULL EXTENSION. THE KNEE WAS IRRIGATED WITH STERILE BETADINE AND WATER FOR ABOUT 3 MINUTES. THE BLEEDERS WERE CAUTERIZED. THE ARTHROTOMY WAS REPAIRED WITH NUMBER 1 VICRYL. THE SUB CUTANEOUS LAYER WITH 2-0 VICRYL AND THE SKIN WITH KIRBY. THE WOUND WAS WASHED AND A STERILE DRESSING WAS APPLIED. PATIENT WAS EXTUBATED. Estimated Blood Loss -150.0 Pathology None sent Complications No immediate complications Condition Stable Disposition PACU
[2023-03-10] MEDS: fentaNYL CITRATE INJ (*CRX) 100 MCG/2 ML VIAL 25 MCG IV PUSH ×4 (11:02→11:30)
--- NOTE | 2023-03-10 13:23 | PC.NURSE ---
This patient, Destiney Medina, was admitted to Medical Room 344-01. Patient/family oriented to hospital policies and general routines including ID bracelet, bed and alarms, visiting hours, pain management, procedures, bathroom and other care routines, personal items, smoking policy, room service/diet, and visiting hours. Information on how to activate the Rapid Response Team has been discussed. Patient/Family are encouraged to report perceived risks to care and to ask questions if they do not understand what they are told or what they should do.
[2023-03-10] MEDS: oxyCODONE HCL (*CRX) 5 MG TAB IR PO ×2 (13:32→17:29)
[2023-03-10] MEDS: SENNA/DOCUSATE SODIUM TABLET 2 TAB PO (17:54)
[2023-03-10] MEDS: CALCIUM CARBONATE (OSCAL) 500 MG TABLET PO (17:54)
[2023-03-10] MEDS: CELECOXIB 200 MG CAPSULE PO (17:54)
[2023-03-10] MEDS: ASPIRIN 325 MG ENTERIC TABLET PO (20:17)
[2023-03-10] MEDS: PANTOPRAZOLE 40 MG TABLET PO (20:17)
[2023-03-11] VITALS: BP 150/58; PULSE 73; RESP 16; TEMP 36.2; O2SAT 98
[2023-03-11] MEDS: ceFAZolin 2 GM/D5W 50 ML 2 GM/50 ML BAG IVPB ×2 (00:03→08:26)
[2023-03-11] MEDS: oxyCODONE HCL (*CRX) 5 MG TAB IR PO ×4 (00:37→15:06)
[2023-03-11] MEDS: diphenhydrAMINE HCl CAP 25 MG CAPSULE 50 MG PO (00:38)
[2023-03-11 04:00] VITALS: BP 140/50; PULSE 76; RESP 18; TEMP 36.2; O2SAT 99
[2023-03-11 05:55] LABS: Basophils Percent Auto 0.3 % (0.2-1.2); Eosinophils Percent Auto 0.2 % (0-4.4); Hematocrit 30.1 % (37.0-47.0); Hemoglobin 9.9 g/dL (12.0-15.0); Immature Granulocyte Absolute 0.05 K/mm3 (0.00-0.031); Immature Granulocyte Percent A 0.4 % (0-0.5); Lymphocytes Absolute Auto 1.16 K/mm3 (0.9-3.2); Lymphocytes Percent Auto 9.7 % (18.3-44.2); Mean Corpuscular HGB Conc 32.9 g/dl (32-36); Mean Corpuscular Hemoglobin 29.1 pg (26-34); Mean Corpuscular Volume 88.5 fl (80-100); Mean Platelet Volume 10.8 fl (7.4-10.4); Monocytes Absolute Auto 0.9 K/mm3 (0.1-0.6); Monocytes Percent Auto 7.5 % (2.6-8.5); Neutrophils Absolute Auto 9.8 K/mm3 (1.3-6.7); Neutrophils Percent Auto 81.9 % (45.5-73.1); Platelet Count Result 194 k/mm3 (150-375); Red Cell Distribution Width 13.6 % (11.5-14.5); White Blood Count 11.9 K/mm3 (4.5-10.0)
[2023-03-11 06:06] LABS: Anion Gap 6 mmol/L (8-16); Blood Urea Nitrogen 14 mg/dL (7-17); Calcium 8.9 mg/dL (8.4-10.2); Carbon Dioxide 27 mmol/L (22-30); Chloride 102 mmol/L (98-107); Estimated CRCL calculation 57 ml/min; Estimated Glomerular Filt Rate > 60; Glucose 108 mg/dL (65-110); Potassium 3.9 mmol/L (3.4-5.0); Sodium 135 mmol/L (137-145)
[2023-03-11 08:20] VITALS: BP 150/60; PULSE 72; RESP 16; TEMP 37.1; O2SAT 96
[2023-03-11] MEDS: CELECOXIB 200 MG CAPSULE PO ×2 (08:26→17:36)
[2023-03-11] MEDS: CALCIUM CARBONATE (OSCAL) 500 MG TABLET PO ×2 (08:26→17:37)
[2023-03-11] MEDS: ATORVASTATIN 10 MG TABLET PO (08:26)
[2023-03-11] MEDS: ASPIRIN 325 MG ENTERIC TABLET PO (08:26)
[2023-03-11] MEDS: PANTOPRAZOLE 40 MG TABLET PO (08:27)
[2023-03-11] MEDS: hydroCHLOROthiazide 25 MG TABLET PO (08:27)
[2023-03-11] MEDS: lisinopriL 20 MG TABLET 40 MG PO (08:27)
[2023-03-11] MEDS: SENNA/DOCUSATE SODIUM TABLET 2 TAB PO ×2 (08:27→17:36)
[2023-03-11] MEDS: CHOLECALCIFEROL 1,000 UNITS TABLET 5000 UNITS PO (08:27)
[2023-03-11] MEDS: polyethylene glycoL 3350 17 GM POWD.PACK PO (08:29)
--- NOTE | 2023-03-11 10:44 | PCPTNOTE ---
On 03/11/23, the student, NARDA Alexis, provided care and completed [employer] documentation on this patient. I have reviewed the student's documentation and agree with the findings.
[2023-03-11 12:00] VITALS: BP 137/82; PULSE 72; RESP 18; TEMP 36.5; O2SAT 99
--- NOTE | 2023-03-11 14:41 | PCPTNOTE ---
On 03/11/23, the student, NARDA Alexis, provided care and completed [facility] documentation on this patient this afternoon. I have reviewed the student's documentation and agree with the findings.
[2023-03-11 16:00] VITALS: BP 127/55; PULSE 76; RESP 13; TEMP 36.8; O2SAT 100
--- NOTE | 2023-03-11 17:27 | WPDPN ---
Progress Note: A&P Assessment and Plan (1) Right knee DJD: Qualifiers: Osteoarthritis type: primary Qualified Code(s): M17.11 - Unilateral primary osteoarthritis, right knee Code(s): M17.11 - Unilateral primary osteoarthritis, right knee Status: Acute Assessment and Plan: POD 1 DOING WELL. OK TO DC HOME F/U IN 3 WEEKS. Subjective Date/time seen: 03/11/23 17:27 Interval history: POD 1 DOING WELL. GOOD PROGRESS WITH PT. NO CALF PAIN Exam Extrem: Other: VSS AFEBRILE DRESSING DRY NV INTACT NEG HOMANS SIGN, CALF SOFT NON TENDER. Objective Data Vital Signs Vital Signs: Vital Signs - 24 hr 03/10/23 17:56 03/10/23 20:00 03/11/23 00:00 Temperature 36.2 C L 36.2 C L 36.2 C L Pulse Rate 78 72 73 Respiratory Rate 18 14 16 Blood Pressure 158/45 H 155/74 H 150/58 H Pulse Oximetry 100 100 98 Oxygen Delivery 03/11/23 04:00 03/11/23 08:20 03/11/23 08:20 Temperature 36.2 C L 37.1 C Pulse Rate 76 72 Respiratory Rate 18 16 Blood Pressure 140/50 L 150/60 H Pulse Oximetry 99 96 Oxygen Delivery Room Air 03/11/23 12:00 03/11/23 16:00 Temperature 36.5 C 36.8 C Pulse Rate 72 76 Respiratory Rate 18 13 Blood Pressure 137/82 127/55 L Pulse Oximetry 99 100 Oxygen Delivery Intake/Output Intake/Output: Intake & Output 03/08/23 03/09/23 03/10/23 03/11/23 23:59 23:59 23:59 23:59 Intake Total 1070 1090 Output Total 900 Balance 1070 190 Meds/Results Medications: Active Medications Generic Name Dose Route Start Last Admin Trade Name Freq PRN Reason Stop Dose Admin Acetaminophen 1,000 mg 03/10/23 12:23 Acetaminophen 500 Mg Tablet PO Q6H PRN Pain Rated 1-3 Alendronate Sodium 70 mg 03/17/23 06:30 Alendronate Sodium 70 Mg Tablet PO Tu@0630 [facility] Aspirin 325 mg 03/10/23 21:00 03/11/23 08:26 Aspirin 325 Mg Enteric Tablet PO 325 mg Q12HR [facility] Administration Atorvastatin Calcium 10 mg 03/11/23 09:00 03/11/23 08:26 Atorvastatin 10 Mg Tablet PO 10 mg DAILY CARITO Administration Calcium Carbonate 500 mg 03/10/23 17:00 03/11/23 08:26 Calcium Carbonate (Oscal) 500 Mg Tablet PO 500 mg BID CARITO Administration Celecoxib 200 mg 03/10/23 17:00 03/11/23 08:26 Celecoxib 200 Mg Capsule PO 200 mg BIDWM CARITO Administration Diazepam 5 mg 03/10/23 12:23 Diazepam (*Crx) 5 Mg Tablet PO Q8H PRN Spasms Diphenhydramine HCl 25 mg 03/10/23 12:23 Diphenhydramine Hcl Inj 50 Mg/Ml Vial IV PUSH Q6H PRN Itching Diphenhydramine HCl 50 mg 03/10/23 17:42 03/11/23 00:38 Diphenhydramine Hcl Cap 25 Mg Capsule PO 50 mg Q6H PRN Administration Itching Hydrochlorothiazide 25 mg 03/11/23 09:00 03/11/23 08:27 Hydrochlorothiazide 25 Mg Tablet PO 25 mg QAM CARITO Administration Lisinopril 40 mg 03/11/23 09:00 03/11/23 08:27 Lisinopril 20 Mg Tablet PO 40 mg QAM CARITO Administration Naloxone HCl 0.1 mg 03/10/23 12:23 Naloxone Hcl 0.4 Mg/Ml Vial IV PUSH Q2M PRN Opiate Reversal Ondansetron HCl 4 mg 03/10/23 12:23 Ondansetron Inj 4 Mg/2 Ml Vial IV PUSH Q4H PRN Nausea And Vomiting Oxycodone HCl 5 mg 03/10/23 12:23 03/11/23 15:06 Oxycodone Hcl (*Crx) 5 Mg Tab Ir PO 5 mg Q4H PRN Administration Pain Rated 4-6 Oxycodone/Acetaminophen 2 tablet 03/10/23 12:23 Oxycodone/Acetaminophen (*Crx) 5-325 Mg Tablet PO Q6H PRN Pain Rated 7-10 Pantoprazole Sodium 40 mg 03/10/23 21:00 03/11/23 08:27 Pantoprazole 40 Mg Tablet PO 40 mg Q12HR [facility]IT[facility] Administration Polyethylene Glycol 17 gm 03/11/23 09:00 03/11/23 08:29 Polyethylene Glycol 3350 17 Gm Powd.Pack PO 17 gm QAM CARITO Administration Senna/Docusate Sodium 2 tab 03/10/23 17:00 03/11/23 08:27 Senna/Docusate Sodium Tablet PO 2 tab BID [facility] Administration Vitamin D 5,000 units 03/11/23 09:00 03/11/23 08:27 Cholecalciferol 1,000
--- NOTE | 2023-03-11 17:28 | PM.DS ---
DS: Admitting Diagnosis Discharge Date 03/11/23 Admitting Diagnosis RIGHT KNEE DJD DS: Discharge Diagnosis Discharge Diagnosis (1) Right knee DJD: Qualifiers: Osteoarthritis type: primary Qualified Code(s): M17.11 - Unilateral primary osteoarthritis, right knee Code(s): M17.11 - Unilateral primary osteoarthritis, right knee Status: Acute DS: Summary Hospital Course Reason for hospitalization: PATIENT WAS ADMITTED S/P TOTAL KNEE ARTHROPLASTY FOR POSTOPERATIVE MEDICAL MANAGEMENT, PAIN CONTROL AND MOBILIZATION WITH PHYSICAL AND OCCUPATIONAL THERAPY. THE PATIENT PROGRESSED WELL WITH PT/OT. LABS AND VITALS REMAINED STABLE AND PAIN WELL CONTROLLED. THE PATIENT HAS BEEN CLEARED TO BE DISCHARGED HOME. FOLLOW UP APPOINTMENT SCHEDULED. DISCHARGE INSTRUCTIONS DISCUSSED AT LENGTH WITH THE PATIENT. MEDICATIONS REVIEWED. Hospital Course: PATIENT WAS ADMITTED S/P TOTAL KNEE ARTHROPLASTY FOR POSTOPERATIVE MEDICAL MANAGEMENT, PAIN CONTROL AND MOBILIZATION WITH PHYSICAL AND OCCUPATIONAL THERAPY. THE PATIENT PROGRESSED WELL WITH PT/OT. LABS AND VITALS REMAINED STABLE AND PAIN WELL CONTROLLED. THE PATIENT HAS BEEN CLEARED TO BE DISCHARGED HOME. FOLLOW UP APPOINTMENT SCHEDULED. DISCHARGE INSTRUCTIONS DISCUSSED AT LENGTH WITH THE PATIENT. MEDICATIONS REVIEWED. Status at Discharge Functional status at discharge: uses cane/walker Time Spent with Patient Time attestation: Total time spent providing and/or coordinating discharge services: DS: Data Data Completed and Pending Labs on day of discharge: Labs from last 24 hours 03/11/23 05:31 WBC 11.9 H RBC 3.40 L Hgb 9.9 L Hct 30.1 L MCV 88.5 MCH 29.1 MCHC 32.9 RDW 13.6 Plt Count 194 MPV 10.8 H Immature Gran % (Auto) 0.4 Neut % (Auto) 81.9 H Lymph % (Auto) 9.7 L [place] % (Auto) 7.5 Eos % (Auto) 0.2 Baso % (Auto) 0.3 Lymph # (Auto) 1.16 [place] # (Auto) 0.9 H Eos # (Auto) 0.0 Baso # (Auto) 0.0 Abs Immat Gran (auto) 0.05 H Absolute Neuts (auto) 9.8 H Absolute Nucleated RBC 0.0 Nucleated RBC % 0.0 Sodium 135 L Potassium 3.9 Chloride 102 Carbon Dioxide 27 Anion Gap 6 L BUN 14 Creatinine 0.70 Estim Creat Clear Calc 57 Estimated GFR > 60 Glucose 108 Calcium 8.9 Discharge Plan Discharge Patient Disposition: Home Health Service Discharge Instructions: Post Op Total Knee Replacement Instructions Dr. Virgil Kearns [phone] Your dressing will be changed prior to your discharge. You will be sent home with one additional dressing to be changed on post op day 7 by the home health RN. Your carlos will be removed on the 14th day after surgery and steri-strips will be placed. Please practice good hand hygiene and do not touch your incision in order to prevent infection. You may shower with your dressing but do not submerge in a bath tub. Do not drive or operate machinery until you are released by Dr. Kearns. Do not walk without a walker for any reason until you are released by Dr. Kearns. Continue to use your ice machine. Please use a towel or pillow case to protect your skin before applying your ice machine. Do NOT place a pillow under your knee. You may use a pillow from the calf down if needed. This will prevent a flexion contracture postoperatively. You may begin use of your CPM machine at home if you have been given one pre-operatively. DO NOT USE WHILE YOU ARE SLEEPING. Your first post op appointment was sent to you via mail preoperatively. If you have any questions or are unable to make your appointment, please contact our office for scheduling questions. Your medications have been sent to your pharmacy. You have been sent home with pain medication. Please case picker an over the counter stool softener to prevent constipation due to narcotic use. Please keep this in mind during your postoperative recovery. If you are not experiencing regular bowel movements, please contact our office for further instruction. DVT prophy
== END 2023-03-11 18:00 | disposition home health service (06) ==
LOC: ANHSURGERY 06:20 → ANH3MED 12:33
PROVIDERS: PCP Family Medicine; Visit Provider Orthopaedic Surgery
PROC: (CPT 27447; principal; 2023-03-10 08:30)
DX: M17.11 Unilateral primary osteoarthritis, right knee (principal); G89.18 Other acute postprocedural pain; I10 Essential (primary) hypertension; E78.00 Pure hypercholesterolemia, unspecified; J44.9 Chronic obstructive pulmonary disease, unspecified; M81.0 Age-related osteoporosis without current pathological fracture; I70.90 Unspecified atherosclerosis; G47.30 Sleep apnea, unspecified; Z87.891 Personal history of nicotine dependence; E66.9 Obesity, unspecified; Z68.33 Body mass index [BMI] 33.0-33.9, adult
CPT/HCPCS: 27447; 64447; 36415; 73560; 80048; 85025; 86850; 86900; 86901; 97110; 97116; 97161; 97165; 97530; 97535; A9270; C1713; C1776; J0171; J0690; J1100; J1885; J2270; J2371; J2405; J2704; J2795; J3010; J7120

== ENCOUNTER 2023-08-11 07:03 | Outpatient (CLI) | payer MEDICARE, SELFPAY ==
[2023-08-11 07:41] LABS: Basophils Percent Auto 0.7 % (0.2-1.2); Eosinophils Absolute Auto 0.2 K/mm3 (0-0.3); Eosinophils Percent Auto 3.2 % (0-4.4); Hematocrit 41.7 % (37.0-47.0); Hemoglobin 13.1 g/dL (12.0-15.0); Immature Granulocyte Absolute 0.03 K/mm3 (0.00-0.031); Immature Granulocyte Percent A 0.5 % (0-0.5); Lymphocytes Absolute Auto 1.32 K/mm3 (0.9-3.2); Lymphocytes Percent Auto 23.6 % (18.3-44.2); Mean Corpuscular HGB Conc 31.4 g/dl (32-36); Mean Corpuscular Hemoglobin 29.2 pg (26-34); Mean Corpuscular Volume 92.9 fl (80-100); Mean Platelet Volume 11.8 fl (7.4-10.4); Monocytes Absolute Auto 0.5 K/mm3 (0.1-0.6); Monocytes Percent Auto 8.4 % (2.6-8.5); Neutrophils Absolute Auto 3.6 K/mm3 (1.3-6.7); Neutrophils Percent Auto 63.6 % (45.5-73.1); Platelet Count Result 182 k/mm3 (150-375); Red Blood Count 4.49 M/mm3 (4.2-5.4); Red Cell Distribution Width 14.5 % (11.5-14.5); White Blood Count 5.6 K/mm3 (4.5-10.0)
[2023-08-11 07:48] LABS: Alanine Aminotransferase 16 U/L (6-35); Albumin Level 4.3 g/dL (3.5-5.1); Alkaline Phosphatase 87 U/L (38-126); Anion Gap 10 mmol/L (8-16); Aspartate Amino Transferase 22 U/L (14-36); Bilirubin,Total 0.8 mg/dL (0.2-1.3); Blood Urea Nitrogen 14 mg/dL (7-17); Calcium 9.4 mg/dL (8.4-10.2); Carbon Dioxide 24 mmol/L (22-30); Chloride 104 mmol/L (98-107); Cholesterol 171 mg/dL (0-200); Estimated Glomerular Filt Rate > 60; Glucose 100 mg/dL (65-110); HDL Direct 57 mg/dL; Potassium 3.9 mmol/L (3.4-5.0); Sodium 138 mmol/L (137-145); Triglycerides 90 mg/dL (<150)
[2023-08-11 07:59] LABS: LDL Cholesterol Direct 77 mg/dL
== END 2023-08-11 07:04 | disposition home or self-care (01) ==
LOC: ANHLAB 07:07
PROVIDERS: PCP Orthopaedic Surgery; Visit Provider Nurse Practitioner Adult Health
DX: E78.5 Hyperlipidemia, unspecified (principal); I10 Essential (primary) hypertension; E87.6 Hypokalemia; N17.9 Acute kidney failure, unspecified; E87.1 Hypo-osmolality and hyponatremia
CPT/HCPCS: 36415; 80053; 80061; 85025

== ENCOUNTER 2024-02-01 11:45 | Outpatient (CLI) | payer MEDICARE, SELFPAY ==
[2024-02-01 12:16] LABS: Basophils Percent Auto 0.6 % (0.2-1.2); Eosinophils Absolute Auto 0.1 K/mm3 (0-0.3); Eosinophils Percent Auto 1.5 % (0-4.4); Hematocrit 43.8 % (37.0-47.0); Immature Granulocyte Absolute 0.01 K/mm3 (0.00-0.031); Immature Granulocyte Percent A 0.2 % (0-0.5); Lymphocytes Absolute Auto 1.99 K/mm3 (0.9-3.2); Lymphocytes Percent Auto 30.1 % (18.3-44.2); Mean Platelet Volume 11.1 fl (7.4-10.4); Monocytes Absolute Auto 0.6 K/mm3 (0.1-0.6); Monocytes Percent Auto 8.9 % (2.6-8.5); Neutrophils Absolute Auto 3.9 K/mm3 (1.3-6.7); Neutrophils Percent Auto 58.7 % (45.5-73.1); Platelet Count Result 196 k/mm3 (150-375); Red Blood Count 4.66 M/mm3 (4.2-5.4); Red Cell Distribution Width 12.5 % (11.5-14.5); White Blood Count 6.6 K/mm3 (4.5-10.0)
--- NOTE | 2024-02-01 12:22 | ECG_ITS ---
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 Measurements Intervals [place] Rate: 70 P: 75 [place]: 173 QRS: 49 QRSD: 88 T: 62 QT: 398 QTc: 430 Interpretive Statements SINUS RHYTHM WITH OCCASIONAL SUPRAVENTRICULAR PREMATURE COMPLEXES OTHERWISE NORMAL ECG No previous ECG available for comparison Electronically Signed On 02-01-2024 14:54:20 CDT by Stuart Watters M.D.
[2024-02-01 12:27] LABS: Anion Gap 5 mmol/L (4-12); Blood Urea Nitrogen 12 mg/dL (7-17); Calcium 9.6 mg/dL (8.4-10.2); Carbon Dioxide 30 mmol/L (22-30); Chloride 105 mmol/L (98-107); Estimated Glomerular Filt Rate > 60; Glucose 97 mg/dL (65-110); Potassium 3.8 mmol/L (3.4-5.0); Sodium 140 mmol/L (137-145)
[2024-02-01 13:04] LABS: Appearance Urine Cloudy (Clear); Bacteria Urine None Seen /hpf; Bilirubin Urine Negative (Negative); Blood Urine Negative (Negative); Color Urine Yellow (Yellow); Glucose Urine UA Negative (Negative); Ketones Urine Negative (Negative); Leukocyte Esterase Ur 2+ LEU/UL (Negative); Need Manual Microscopic Reviewed; Nitrate Urine Negative (Negative); Non Pathogenic Casts 0-2; Protein Urine Negative (Negative); RBC Urine 0-2 /hpf (0-2); Squamous Epithelial Cell Urine None Seen /hpf (Few); Urobilinogen Urine 0.2 mg/dL (<2.0); pH Urine 6.5 (5.0-9.0)
[2024-02-01 13:06] LABS: Add Urine Microscopic? YES; Specific Grav Ur 1.003 (1.001-1.035)
== END 2024-02-01 11:46 | disposition home or self-care (01) ==
LOC: ANHLAB 11:50
PROVIDERS: PCP Nurse Practitioner Adult Health; Visit Provider Orthopaedic Surgery
DX: I10 Essential (primary) hypertension (principal); I49.3 Ventricular premature depolarization; N17.9 Acute kidney failure, unspecified; E87.1 Hypo-osmolality and hyponatremia; N39.0 Urinary tract infection, site not specified; R53.83 Other fatigue; E87.6 Hypokalemia; G47.30 Sleep apnea, unspecified; I95.9 Hypotension, unspecified
CPT/HCPCS: 36415; 80048; 81001; 85025; 87077; 87086; 87088; 93005

== ENCOUNTER 2024-02-22 13:55 | Outpatient (CLI) | payer MEDICARE, SELFPAY ==
[2024-02-22 15:30] LABS: Albumin Level 4.4 g/dL (3.5-5.1)
[2024-02-22 15:31] LABS: Prothrombin Time 13.4 Seconds (11.1-14.7)
[2024-02-22 15:32] LABS: Partial Thromboplastin Time 28.9 Seconds (22.3-36.8)
[2024-02-22 16:31] LABS: MRSA (PCR) NOT DETECTED (NOT DETECTE)
[2024-02-22 17:33] LABS: Appearance Urine Clear (Clear); Bacteria Urine None Seen /hpf; Bilirubin Urine Negative (Negative); Blood Urine Negative (Negative); Color Urine Yellow (Yellow); Glucose Urine UA Negative (Negative); Ketones Urine Negative (Negative); Leukocyte Esterase Ur 1+ LEU/UL (Negative); Nitrate Urine Negative (Negative); Non Pathogenic Casts 0-2; Protein Urine Negative (Negative); RBC Urine 0-2 /hpf (0-2); Specific Grav Ur 1.007 (1.001-1.035); Squamous Epithelial Cell Urine None Seen /hpf (Few); Urobilinogen Urine 0.2 mg/dL (<2.0); pH Urine 6.5 (5.0-9.0)
[2024-02-22 17:59] LABS: Add Urine Microscopic? YES
[2024-02-22 18:00] LABS: Urine Cotinine NEGATIVE
[2024-02-22 18:54] LABS: Hemoglobin A1C 4.9 % (<5.7)
== END 2024-02-22 13:56 | disposition home or self-care (01) ==
LOC: ANHSURGERY 14:01
PROVIDERS: PCP Nurse Practitioner Adult Health; Visit Provider Orthopaedic Surgery
DX: M17.12 Unilateral primary osteoarthritis, left knee (principal); Z01.818 Encounter for other preprocedural examination
CPT/HCPCS: 80307; 81001; 82040; 83036; 85610; 85730; 87077; 87086; 87088; 87641

== ENCOUNTER 2024-03-09 00:53 | Day surgery (SDC) | payer MEDICARE, SELFPAY ==
[2024-02-22 14:06] VITALS: BMI 35.7
--- NOTE | 2024-02-22 14:30 | PC.NURSE ---
Report to the Outpatient Waiting Room, entrance under the green pavilion located off [facility], at time __9:00 AM on date _03/09/24 . Planned Procedure Time: ___1100AM . Time changes happen often and if your time is changed the preop area will call you the afternoon before. - You and your visitor will be asked to self-screen and do not enter if you have any COVID symptoms. - A mask is optional within the hospital at this time. Patients may have clear liquids (water, carbonated beverages, clear teas, apple juice) until 3 hours prior to surgery ( 8:00AM)with a maximum of 20 ounces. - No food from midnight until time of surgery - Infants may have breast milk until 4 hours before surgery, infant formula 6 hours prior to surgery. - Children will be allowed to drink immediately following surgery. If applicable, please bring a bottle or sippy cup to assist with drinking. Juice, water, soda, and popsicles are readily available. For infants on formula, please bring formula the day of surgery. Pacifiers are allowed. Take the following medications with a SIP of water the morning of surgery: ____NONE DO NOT STOP ANY OF YOUR OTHER PRESCRIPTION MEDICATIONS PRIOR TO SURGERY ?EXCEPT THE FOLLOWING Medications to discontinue per physician ___HOLD ALL VITAMINS AND SUPPLEMENTS 3 DAYS PRE OP ,LAST DOSE 03/05/24/ DECEMBER TYLENOL IF NEEDED FOR PAIN Please no make-up, nail luxembourger, hairspray, perfume, deodorant, or body powder the day of surgery. No jewelry (including any body piercings) or valuables the day of surgery, leave them at home. Please take a shower or bath the night before, or the morning of, surgery with an antibacterial soap. Wear comfortable, loose fitting clothing. Children are encouraged to wear pajamas. - Jewelry must be removed prior to entering the operating room. Rings and piercings that are not removed may be cut off. - The hospital will not accept responsibility for valuables. - Please leave all valuables, including medications, at home the day of surgery. If you are going home after surgery, a licensed bus driver school must drive you home. - NO public transportation without another adult if you receive anesthesia. - We recommend that an adult stay with you for 24 hours following discharge. - We also recommend that you do not drive, make important decision, drink alcoholic beverages, or take any drugs that were not prescribed by your health care provider for at least 24 hours after your discharge time. Follow any additional instructions given to you from your surgeon. If you or anyone in your household have experienced Covid symptoms in the past week, please notify your surgeon or the nurse liaison at the phone number below for possible testing. VERBAL AND WRITTEN instructions given to _PATIENT AND SPOUSE EARL and asked if any additional questions and then verbalized understanding. Patient advised to call surgeon office or pre surgery nurse liaison [phone] if any additional questions.
[2024-02-22 14:42] VITALS: BP 192/98; PULSE 74; RESP 18; TEMP 37.2; O2SAT 98
[2024-03-09] VITALS (12 sets, daily range): BP systolic 115–151; BP diastolic 42–67; PULSE 85–105; RESP 14–24; TEMP 36.3–36.9; O2SAT 92–100
--- NOTE | ~2024-03-09 | XR_ITS ---
EXAMINATION: [id number] DATE: 03/09/2024 13:30 INDICATION: Postoperative evaluation following left total knee arthroplasty. TECHNIQUE: Anteroposterior and lateral views of the left knee were obtained. COMPARISON: 10/26/2023 FINDINGS: Left total knee arthroplasty , likely with patellar resurfacing which appears well seated and in near anatomic alignment. No fractures identified. Anterior skin carlos and expected postoperative subcut aneous and intra-articular gas. IMPRESSION: 1. Left total knee arthroplasty, negative for postoperative purposes. Reviewed, dictated and finalized at location A.
--- NOTE | 2024-03-09 07:14 | WPDHPUPDATE1 ---
History and Physical Update Update Date/Time: 03/09/24 07:14 History and Physical has been reviewed, including an updated exam of the patient. There are NO changes in the patient's condition. Risks, benefits, and alternatives have been discussed and questions answered. Patient agrees to proceed with procedure.
--- NOTE | 2024-03-09 09:37 | WPDANESEPPF ---
Anes - Initial Pre Proc Eval Procedure: Operation Date: 03/09/24 11:00 Proposed Procedures p Left Total Knee Arthroplasty - Virgil Kearns MD Date/Time: 03/09/24 09:37 Surgeon: Virgil Kearns MD Pre Op Diagnosis: left knee djd Patient Data Age: 78 Gender: F Height: 1.56 m Weight: 85.4 kg Last Vital Signs Temp 36.9 C 03/09/24 09:05 Pulse 87 03/09/24 09:05 Resp 18 03/09/24 09:05 BP 151/58 H 03/09/24 09:05 Pulse Ox 100 03/09/24 09:05 O2 Del Method Room Air 03/09/24 09:05 Allergies Allergy/AdvReac Type Severity Reaction Status Date / Time adhesive tape Allergy Unknown Hives Verified 03/09/24 09:26 Home Medications Medication Instructions Recorded Confirmed Type atorvastatin 10 mg tablet 10 mg PO HS 08/18/19 03/09/24 History calcium carbonate (Calcium 500) 500 mg PO BID 08/18/19 03/09/24 History lisinopril 40 mg tablet 40 mg PO QAM 08/18/19 03/09/24 History acetaminophen 650 mg 1,300 mg PO Q12H PRN Pain 11/28/22 03/09/24 History tablet,extended release cholecalciferol (vitamin D3) 125 125 mcg PO DAILY 11/28/22 03/09/24 History mcg (5,000 unit) capsule omeprazole 20 mg capsule,delayed 20 mg PO DAILY 3 months #90 caps 08/17/23 03/09/24 Rx release Patient hx anesthesia problems: none Family hx anesthesia problems: none Results Review: All pre-operative results and documents have been reviewed as part of the pre-operative evaluation. [facility] Past Medical History Medical History Arterial occlusive disease COPD (chronic obstructive pulmonary disease) Dizziness Gastroparesis High cholesterol HTN (hypertension) Hypotension Knee effusion Left knee DJD Liver lesion Nausea & vomiting Obesity Osteoporosis Right knee DJD Right knee pain Sleep apnea Noncompliant with CPAP Smoking Surgical History Surgical History H/O cataract extraction History of carpal tunnel release History of total right knee replacement Family History Family History Father Kidney disease Mother MVA (motor vehicle accident) Sibling Diabetes mellitus Social History Social History Social History: The patient lives with her who is the poa and they have 2 children. She socially drinks. She continues to smoke 1 pack a cigarettes a day. I did offer her smoking cessation and she is not interested at this time. The patient . Code status full code Smoking packs per day: 1 Smoking cigarettes per day: 20.0 Years smoked: 60 Smoking pack-years: 60.00 Smoking status: Former smoker Tobacco type: cigarettes Second hand tobacco smoke exposure: No Smoking end date: 10/01/22 Additional smoking assessment comments: DENIES ANY FORM OF TOBACCO USE Alcohol intake: current Drinks per week: 4 Substance use: never Substance use type: does not use Lack of Transportation: No Lack of Food: Never True Current Housing: I Have Housing Concerned About Future Housing: No Difficulty Paying Gas/Electric Bills: No Difficulty Paying for Meds: No Currently Unemployed: No Education: Decline to Answer Difficulty w/ Childcare or Family Care: No Living arrangements: with family Additional living arrangements comments: [facility] Occupation/Education: retired Gender identity (if verbalized by the patient): Female Spiritual care concerns: No Anes - Eval Final PreProcedure Day of Procedure 03/09/24 09:37 Patient weight: obese Heart: regular rate and rhythm Lungs: decreased breath sounds Airway: Mallampati scale class III Neurological: alert and oriented Last oral intake: >/= 8 hours ASA classification: III Emergent: no Anesthetic plan: proceed Anesthesia type and monitoring: general LMA and standard monitoring Results Review: All pre-operative results and documen
[2024-03-09] MEDS: LACTATED RINGERS 1,000 ML 30 ML IV CONT ×2 (09:57→13:15)
[2024-03-09] MEDS: TRANEXAMIC ACID 1,000MG/ISO100 1,000 MG/100 ML BAG 200 MG IVPB (09:57)
--- NOTE | 2024-03-09 10:31 | WPDANESPNB ---
Anes - Peripheral Nerve Block Date/Time: 03/09/24 10:31 I have discussed with the patient/family/POA the placement of a peripheral nerve block for post-operative pain management, including associated risks, benefits, complications, and side effects. Alternative methods of post-operative analgesia were detailed. Questions were solicited and answers provided to the satisfaction of the patient/family/POA. Time-Out: A pre-procedural Time-Out was completed immediately before starting the procedure and confirmed: Patient Identification, Site, Procedure, Patient Position and the Availability of Requisite Equipment. Clinical Indications: Acute post-operative pain management requested by the operative surgeon. Nerve Block Insertion Note Anes-nerve block: adductor canal left Patient position: supine Skin prep: chlorhexidine Needle: 22 gauge, stimulating, insulated echogenic needle. Needle length: 80 mm Technique: ultrasound Injectate: bupivacaine 0.5% with epi 5 mcg/ml (30cc) Observations: tolerated well Complications: none Procedure start time:: 1020 Procedure end time:: 1030
[2024-03-09] MEDS: ceFAZolin 2 GM/D5W 50 ML 2 GM/50 ML BAG IVPB ×2 (10:49→17:41)
[2024-03-09] MEDS: SODIUM CHLORIDE 0.9% IV 37.7 ML, MORPHINE SULFATE INJ (*CRX) 2 MG, ROPivacaine HCL 1% 2... INFILTRATE (12:24)
[2024-03-09] MEDS: TRANEXAMIC ACID 1,000 MG/10 ML AMPUL 1000 MG IV PUSH (12:24)
--- NOTE | 2024-03-09 13:12 | W.PM.PROC2 ---
Procedure Note - Detailed Date of Procedure 03/09/24 Pre-op Diagnosis left knee djd Post-op Diagnosis Same Procedure Performed LEFT TKA Surgeon Virgil Kearns MD Anesthesia General Description of Procedure THE LEFT KNEE WAS PREPPED AND DRAPED IN THE STERILE FASHION. THERE WAS A 10 DEGREE FLEXION CONTRACTURE. A MIDLINE SKIN INCISION WAS MADE. A MEDIAL PARAPATELLAR ARTHROTOMY WAS MADE. THE PATELLA WAS EVERTED. THERE WAS TRICOMPARTMENT DJD. THERE WAS MINIMAL PATELLA DJD. AN INTRAMEDULLARY TONG WAS PLACED IN THE FEMUR. A DISTAL FEMORAL CUT WAS MADE IN 5 DEGREES OF VALGUS REMOVING APPROXIMATELY 9 MM OF BONE FROM THE DISTAL FEMUR. THE FEMUR WAS SIZED TO 60. A 60 FEMORAL CUTTING BLOCK WAS PLACED IN 3 DEGREES OF EXTERNAL ROTATION AND IN ALIGNMENT WITH DEMETRIS'S LINE AND THE TRANSEPICONDYLAR AXIS. ANTERIOR POSTERIOR AND CHAMFER CUTS WERE MADE. THE CUTS WERE EXCELLENT. NEXT AN INTRAMEDULLARY CUTTING GUIDE WAS PLACED IN THE TIBIA. A TRANS TIBIAL CUT WAS MADE ALONG THE LONG AXIS OF THE TIBIA. APPROXIMATELY 10 MM OF BONE WAS REMOVED FROM THE HIGH SIDE OF THE TIBIA. THE TIBIA WAS THEN PLANED TO A SMOOTH SURFACE. POSTERIOR FEMORAL OSTEOPHYTES WERE REMOVED FROM THE FEMORAL CONDYLES. A 67 TIBIAL TRIAL WAS PLACED IN ALIGNMENT WITH THE 1/3 MEDIAL ASPECT OF THE TIBIAL TUBERCLE. THEN A 60 FEMORAL TRIAL COMPONENT WAS PLACED. BOTH HAD EXCELLENT FITS. EVENTUALLY A 11 MM POLYETHYLENE TRIAL COMPONENT WAS PLACED. THE KNEE WAS TAKEN THROUGH A RANGE OF MOTION. THE KNEE CAME OUT TO FULL EXTENSION. THERE WAS NO ABNORMAL TILT TO THE PATELLA. THERE WAS GOOD A/P AND VARUS/VALGUS STABILITY. THERE WAS NO EXCESSIVE ROLL BACK WITH FLEXION. THE TRIAL COMPONENTS WERE REMOVED. THEN A 60 FEMORAL COMPONENT AND 67 TIBIAL COMPONENT WITH A 11 POLYETHYLENE COMPONENT WERE CEMENTED INTO PLACE. ONCE THE CEMENT WAS HARD THE KNEE WAS TAKEN THROUGH A ROM AGAIN AND FOUND TO BE STABLE WITH NO PATELLA TILT NO EXCESSIVE ROLL BACK WITH FLEXION AND GOOD STABILITY WITH COMPLETE AND FULL EXTENSION. THE KNEE WAS IRRIGATED WITH STERILE BETADINE AND WATER FOR ABOUT 3 MINUTES. THE BLEEDERS WERE CAUTERIZED. THE ARTHROTOMY WAS REPAIRED WITH NUMBER 1 VICRYL. THE SUB CUTANEOUS LAYER WITH 2-0 VICRYL AND THE SKIN WITH KIRBY. THE WOUND WAS WASHED AND A STERILE DRESSING WAS APPLIED. PATIENT WAS EXTUBATED. Estimated Blood Loss -150.0 Pathology None sent Complications No immediate complications Condition Stable Disposition PACU
[2024-03-09] MEDS: fentaNYL CITRATE INJ (*CRX) 100 MCG/2 ML VIAL 25 MCG IV PUSH ×3 (13:50→14:17)
[2024-03-09] MEDS: SODIUM CHLORIDE 0.9% IV 1,000 ML 125 ML IV CONT (17:33)
[2024-03-09] MEDS: CELECOXIB 200 MG CAPSULE PO (17:40)
[2024-03-09] MEDS: SENNA/DOCUSATE SODIUM TABLET 2 TAB PO (17:41)
[2024-03-09] MEDS: ATORVASTATIN 10 MG TABLET PO (20:38)
[2024-03-09] MEDS: ASPIRIN 81 MG ENTERIC TABLET PO (20:38)
[2024-03-10] MEDS: ceFAZolin 2 GM/D5W 50 ML 2 GM/50 ML BAG IVPB ×2 (02:13→10:23)
[2024-03-10] MEDS: oxyCODONE/ACETAMINOPHEN (*CRX) 5-325 MG TABLET 1 TABLET PO ×2 (02:13→09:32)
[2024-03-10 04:00] VITALS: BP 129/41; PULSE 75; RESP 16; TEMP 36.5; O2SAT 98
[2024-03-10 06:31] LABS: Basophils Percent Auto 0.1 % (0.2-1.2); Hematocrit 33.9 % (37.0-47.0); Hemoglobin 10.9 g/dL (12.0-15.0); Immature Granulocyte Absolute 0.03 K/mm3 (0.00-0.031); Immature Granulocyte Percent A 0.2 % (0-0.5); Lymphocytes Absolute Auto 1.13 K/mm3 (0.9-3.2); Lymphocytes Percent Auto 9.2 % (18.3-44.2); Mean Corpuscular HGB Conc 32.2 g/dl (32-36); Mean Corpuscular Hemoglobin 29.7 pg (26-34); Mean Corpuscular Volume 92.4 fl (80-100); Mean Platelet Volume 11.4 fl (7.4-10.4); Monocytes Absolute Auto 0.7 K/mm3 (0.1-0.6); Monocytes Percent Auto 5.8 % (2.6-8.5); Neutrophils Absolute Auto 10.4 K/mm3 (1.3-6.7); Neutrophils Percent Auto 84.7 % (45.5-73.1); Platelet Count Result 171 k/mm3 (150-375); Red Blood Count 3.67 M/mm3 (4.2-5.4); Red Cell Distribution Width 12.2 % (11.5-14.5); White Blood Count 12.3 K/mm3 (4.5-10.0)
[2024-03-10 06:40] LABS: Anion Gap 5 mmol/L (4-12); Blood Urea Nitrogen 14 mg/dL (7-17); Calcium 9.1 mg/dL (8.4-10.2); Carbon Dioxide 28 mmol/L (22-30); Chloride 106 mmol/L (98-107); Estimated CRCL calculation 58 ml/min; Estimated Glomerular Filt Rate > 60; Glucose 129 mg/dL (65-110); Potassium 3.6 mmol/L (3.4-5.0); Sodium 139 mmol/L (137-145)
[2024-03-10 08:00] VITALS: BP 112/43; PULSE 80; RESP 17; TEMP 37.2; O2SAT 98
[2024-03-10] MEDS: ASPIRIN 81 MG ENTERIC TABLET PO (08:23)
[2024-03-10] MEDS: CELECOXIB 200 MG CAPSULE PO (08:23)
[2024-03-10] MEDS: SENNA/DOCUSATE SODIUM TABLET 2 TAB PO (08:23)
[2024-03-10] MEDS: PANTOPRAZOLE 40 MG TABLET PO (08:23)
[2024-03-10] MEDS: CHOLECALCIFEROL 5,000 UNITS TABLET 5000 UNITS BY MOUTH (08:24)
[2024-03-10] MEDS: polyethylene glycoL 3350 17 GM POWD.PACK PO (08:24)
[2024-03-10] MEDS: lisinopriL 20 MG TABLET 40 MG PO (08:24)
[2024-03-10 08:27] VITALS: O2SAT 98
--- NOTE | 2024-03-10 09:22 | PM.PNORT ---
Progress Note: A&P Assessment and Plan (1) S/P total knee arthroplasty: Qualifiers: Laterality: left Qualified Code(s): Z96.652 - Presence of left artificial knee joint Code(s): Z96.659 - Presence of unspecified artificial knee joint Status: Acute Assessment and Plan: POD #1 : Left TKA Continue PT/OT. WBAT. Walker. HIGH FALL RISK. Continue pain control. Ice Knee. Protect skin. DVT prophylaxis with Aspirin 81mg PO BID. Pain control- transition to Tramadol at d/c. SCDs. Incentive Spirometry Use reviewed. Monitor Dressing. Change prior to discharge. Bowel Regimen. Dispo: Home with Home Health pending progress with PT/OT Plan Reviewed history, exam, radiographs and current labs with attending MD and covering surgeon, Dr. Kearns, who agrees with current plan as indicated above. No further recommendations from Dr. Kearns at this time. Subjective Subjective Date/Time Seen: 03/10/24 09:22 Post Op day: 1 Principal diagnosis: Left Knee DJD Interval history: POD #1: Left TKA Patient doing well. Pain well controlled. Up in chair at time of exam. at bedside. Hopeful for d/c today. Review of Systems Review of Systems: All systems reviewed & are unremarkable except as noted in HPI and below Constitutional: Constitutional: Denies fever(s) and Denies headache(s) ENT: Denies headache(s) Cardiovascular: Cardiovascular: Denies chest pain, Denies diaphoresis, Denies palpitations and Denies dyspnea Respiratory: Respiratory: Denies dyspnea Gastrointestinal: Gastrointestinal: Denies abdominal pain, Denies constipation, Denies nausea and Denies vomiting Genitourinary: Genitourinary: Reports nocturia and Denies dysuria Musculoskeletal: Musculoskeletal: Reports arthralgias (Left Knee ), Reports joint swelling (Left Knee ) and Reports limited range of motion (ROM limited due to recent surgical intervention LEFT Knee ) Neurologic: Denies headache(s) Endocrine: Endocrine: Denies palpitations Exam Const: General: comfortable and no acute distress Resp: Effort & Inspection: normal respiratory effort Cardio: Rate: regular rate Rhythm: regular rhythm GI: GI Palp: Yes Soft to palpation, No Tenderness to palpation present (GI) and No Guarding due to palpation present (GI) Skin: General skin exam: wounds noted (see extremity assessment ) Wounds: wounds noted (see extremity assessment ) Neuro: Cognition (Neuro): normal cognition Other: NV intact aside from block. Moves toes. Sensation intact to light touch. +ankle dorsiflexion/plantarflexion. Extrem: Left lower extremity: normal to inspection, normal capillary refill, knee Details: tenderness (diffuse ) Location: of the patella, swelling (moderate consistent to recent surgery ), abnormal ROM (limited due to recent surgery ) Details: pain with active ROM and pain with passive ROM and ecchymosis (as expected with recent surgery. NO hematoma. ), lower leg (Negative Lola's Sign ), ankle (+ankle dorsiflexion/plantarflexion ) Details: normal to inspection, no edema and normal ROM; no tenderness and no swelling and foot Details: normal capillary refill, toes with normal ROM, vascular exam Details: dorsalis pedis pulse present and motor-sensory exam light-touch normal; no tenderness Other: Incision left TKA dressing c/d/i. No hematoma. No signs of infection. No wound dehiscence. Psych: Mental Status: mental status grossly normal Objective Data Vital Signs Vital Signs: Vital Signs - 24 hr 03/09/24 13:15 03/09/24 13:30 03/09/24 13:45 Temperature 36.3 C L Pulse Rate 105 H 103 H 99 Respiratory Rate 20 24 H 21 H Blood Pressure 124/46 L 135/42 L 115/52 L Pulse Oximetry 100 99 92 Oxygen Delivery Simple Face Mask Room Air Room Air Oxygen Flow Rate 8 03/09/24 14:00 03/09/24 14:15 03/09/24 14:30 Temperature Pulse Rate 98 96 98 Respiratory Rate 14 19 14 Blood Pressure 125/47 L 122/54 L 120/61 Pulse Oximetry 93 9
--- NOTE | 2024-03-10 09:46 | PM.DS ---
DS: Admitting Diagnosis Discharge Date 03/10/2024 Admitting Diagnosis Left Knee DJD DS: Discharge Diagnosis Discharge Diagnosis (1) S/P total knee arthroplasty: Qualifiers: Laterality: left Qualified Code(s): Z96.652 - Presence of left artificial knee joint Code(s): Z96.659 - Presence of unspecified artificial knee joint Status: Acute Assessment and Plan: POD #1 : Left TKA Continue PT/OT. WBAT. Walker. HIGH FALL RISK. Continue pain control. Ice Knee. Protect skin. DVT prophylaxis with Aspirin 81mg PO BID. Pain control- transition to Tramadol at d/c. SCDs. Incentive Spirometry Use reviewed. Monitor Dressing. Change prior to discharge. Bowel Regimen. Dispo: Home with Home Health pending progress with PT/OT Plan Reviewed history, exam, radiographs and current labs with attending MD and covering surgeon, Dr. Kearns, who agrees with current plan as indicated above. No further recommendations from Dr. Kearns at this time. DS: Summary Hospital Course Reason for hospitalization: Left TKA Hospital Course: 78 year old female admitted s/p Left TKA for postoperative medical management, pain control and mobilization with PT/OT. Patient progressed well with PT/OT. Pain and vitals remained stable throughout. The patient has been cleared to be discharged home with home health at this time. All discharge care instructions reviewed at depth. New medications reviewed. Follow up planned for 3 weeks in the outpatient orthopedic clinic with Dr. Kearns. Dr. Kearns in agreement with safe discharge at this time. Status at Discharge Functional status at discharge: uses cane/walker Overall status at discharge: patient is progressing back to baseline Time Spent with Patient Time attestation: Total time spent providing and/or coordinating discharge services: Exam Const: General: comfortable and no acute distress Resp: Effort & Inspection: normal respiratory effort Cardio: Rate: regular rate Rhythm: regular rhythm Skin: General skin exam: wounds noted (see extremity assessment ) Wounds: wounds noted (see extremity assessment ) Neuro: Cognition (Neuro): normal cognition Other: NV intact aside from block. Moves toes. Sensation intact to light touch. +ankle dorsiflexion/plantarflexion. Extrem: Left lower extremity: normal to inspection, normal capillary refill, knee Details: tenderness (diffuse ) Location: of the patella, swelling (moderate consistent to recent surgery ), abnormal ROM (limited due to recent surgery ) Details: pain with active ROM and pain with passive ROM and ecchymosis (as expected with recent surgery. NO hematoma. ), lower leg (Negative Lola's Sign ), ankle (+ankle dorsiflexion/plantarflexion ) Details: normal to inspection, no edema and normal ROM; no tenderness and no swelling and foot Details: normal capillary refill, toes with normal ROM, vascular exam Details: dorsalis pedis pulse present and motor-sensory exam light-touch normal; no tenderness Other: Incision left TKA dressing c/d/i. No hematoma. No signs of infection. No wound dehiscence. Psych: Mental Status: mental status grossly normal DS: Data Data Completed and Pending Labs on day of discharge: Labs from last 24 hours 03/10/24 03/09/24 05:46 09:59 WBC 12.3 H RBC 3.67 L Hgb 10.9 L D Hct 33.9 L MCV 92.4 MCH 29.7 MCHC 32.2 RDW 12.2 Plt Count 171 MPV 11.4 H Immature Gran % (Auto) 0.2 Neut % (Auto) 84.7 H Lymph % (Auto) 9.2 L Reagan % (Auto) 5.8 Eos % (Auto) 0.0 Baso % (Auto) 0.1 L Lymph # (Auto) 1.13 Reagan # (Auto) 0.7 H Eos # (Auto) 0.0 Baso # (Auto) 0.0 Abs Immat Gran (auto) 0.03 Absolute Neuts (auto) 10.4 H Absolute Nucleated RBC 0.000 Nucleated RBC % 0.0 Sodium 139 Potassium 3.6 Chloride 106 Carbon Dioxide 28 Anion Gap 5 BUN 14 Creatinine 0.70 Estim Creat Clear Calc 58 Estimated GFR > 60 Glucose 129 H Calcium
--- NOTE | 2024-03-10 13:26 | PCPTNOTE ---
On 03/10/24, the student, [Erin Quiroz], provided care and completed [facility] documentation on this patient. I have reviewed the student's documentation and agree with the findings.
== END 2024-03-10 12:25 | disposition home health service (06) ==
LOC: ANHSURGERY 08:49 → ANH3MEDSUR 14:41
PROVIDERS: PCP Nurse Practitioner Adult Health; Visit Provider Orthopaedic Surgery
PROC: (CPT 27447; principal; 2024-03-09 11:00)
DX: M17.12 Unilateral primary osteoarthritis, left knee (principal); G89.18 Other acute postprocedural pain; I10 Essential (primary) hypertension; E78.00 Pure hypercholesterolemia, unspecified; K31.84 Gastroparesis; M81.0 Age-related osteoporosis without current pathological fracture; J44.9 Chronic obstructive pulmonary disease, unspecified; G47.30 Sleep apnea, unspecified; E66.9 Obesity, unspecified; Z68.35 Body mass index [BMI] 35.0-35.9, adult; Z87.891 Personal history of nicotine dependence
CPT/HCPCS: 27447; 64447; 36415; 73560; 80048; 85025; 86850; 86900; 86901; 97110; 97161; 97165; 97530; 97535; A9270; C1713; C1776; J0171; J0690; J1100; J1596; J1885; J2270; J2405; J2704; J2795; J3010; J7030; J7120

== ENCOUNTER 2024-05-04 09:41 | Emergency (ER) | payer MEDICARE, SELFPAY ==
[2024-05-04 09:57] VITALS: BP 148/57; PULSE 96; RESP 16; TEMP 37.1; O2SAT 100
[2024-05-04 10:04] LABS: EDUAAPPEAR Cloudy; EDUABILI Negative; EDUABLOOD 1+; EDUACOLOR1 Dark; EDUAGLUCOSE Negative; EDUAKETONE Negative; EDUALEUKO 1+; EDUANITRATE Positive; EDUAPROTEIN Negative; EDUASPGRAVITY 1.025; EDUAUROBILI 0.2
--- NOTE | 2024-05-04 10:10 | ED.FEMALEGU ---
HPI - Female Genitourinary General Chief complaint: Urogenital-Female Stated complaint: uti symptoms Time Seen by Provider: 05/04/24 10:10 Source: patient Mode of arrival: ambulatory Limitations: no limitations History of Present Illness HPI Narrative: 79-year-old female presents with complaint of urinary frequency, urgency, dysuria, bladder pressure for 2 days. Afebrile. All systems reviewed and negative except as noted above. Related Data Home Medications Medication Instructions Recorded Confirmed atorvastatin 10 mg tablet 10 mg PO HS 08/18/19 04/11/24 calcium carbonate (Calcium 500) 500 mg PO BID 08/18/19 04/11/24 lisinopril 40 mg tablet 40 mg PO QAM 08/18/19 04/11/24 acetaminophen 650 mg 1,300 mg PO Q12H PRN Pain 11/28/22 04/11/24 tablet,extended release cholecalciferol (vitamin D3) 125 125 mcg PO DAILY 11/28/22 04/11/24 mcg (5,000 unit) capsule amlodipine 5 mg tablet mg 05/04/24 Allergies Allergy/AdvReac Type Severity Reaction Status Date / Time adhesive tape Allergy Unknown Hives Verified 05/04/24 10:01 Review of Systems Review of Systems: CONSTITUTIONAL: Denies fever, chills, or sweats. EYES: Denies visual changes, redness, or discharge. ENT: Denies rhinorrhea, congestion, sore throat, or otalgia. CARDIOVASCULAR: Denies chest pain, palpitations, or edema. RESPIRATORY: Denies cough or dyspnea. GASTROINTESTINAL: Denies abdominal pain, nausea, vomiting, or diarrhea. GENITOURINARY: Reports dysuria, frequency, urgency. Denies hematuria. SKIN: Denies rash or itching. MUSCULOSKELETAL: Denies back pain, joint pain, or myalgia. NEUROLOGIC: Denies headache, numbness, or weakness. PSYCHIATRIC: Denies anxiety or depression. All other systems reviewed are negative, except as documented in HPI. [facility] Past Medical History Medical History Arterial occlusive disease COPD (chronic obstructive pulmonary disease) Dizziness Gastroparesis High cholesterol HTN (hypertension) Hypotension Knee effusion Left knee DJD Liver lesion Nausea & vomiting Obesity Osteoporosis Right knee DJD Right knee pain Sleep apnea Noncompliant with CPAP Smoking Surgical History Surgical History H/O cataract extraction History of carpal tunnel release History of total right knee replacement S/P total knee arthroplasty LT TKA 03/09/24 Family History Family History Father Kidney disease Mother MVA (motor vehicle accident) Sibling Diabetes mellitus Social History Social History Social History: The patient lives with her who is the poa and they have 2 children. She socially drinks. She continues to smoke 1 pack a cigarettes a day. I did offer her smoking cessation and she is not interested at this time. The patient . Code status full code Smoking packs per day: 1 Smoking cigarettes per day: 20.0 Years smoked: 60 Smoking pack-years: 60.00 Smoking status: Former smoker Tobacco type: cigarettes Second hand tobacco smoke exposure: No Smoking end date: 10/01/22 Additional smoking assessment comments: DENIES ANY FORM OF TOBACCO USE Alcohol intake: current Drinks per week: 4 Substance use: never Substance use type: does not use Lack of Transportation: No Lack of Food: Never True Current Housing: I Have Housing Concerned About Future Housing: No Difficulty Paying Gas/Electric Bills: No Difficulty Paying for Meds: No Currently Unemployed: No Education: Decline to Answer Difficulty w/ Childcare or Family Care: No Living arrangements: with family Additional living arrangements comments: [place] Occupation/Education: retired Gender identity (if verbalized by the patient): Female Spiritual care concerns: No Comments At time of signature, agree with nursing past medical, surg
== END 2024-05-04 10:19 | disposition home or self-care (01) ==
PROVIDERS: Emergency Provider Nurse Practitioner Family; PCP Family Medicine
DX: N39.0 Urinary tract infection, site not specified (principal); B96.20 Unspecified Escherichia coli [E. coli] as the cause of diseases classified elsewhere; Z87.891 Personal history of nicotine dependence; J44.9 Chronic obstructive pulmonary disease, unspecified; E78.00 Pure hypercholesterolemia, unspecified; I10 Essential (primary) hypertension; M81.0 Age-related osteoporosis without current pathological fracture; M17.0 Bilateral primary osteoarthritis of knee; G47.30 Sleep apnea, unspecified; Z91.199 Patient's noncompliance with other medical treatment and regimen due to unspecified reason; Z96.653 Presence of artificial knee joint, bilateral
CPT/HCPCS: 81003; 87077; 87086; 87088; 87186; 99213; G0463

== ENCOUNTER 2024-10-10 09:00 | Outpatient (CLI) | payer MEDICARE, SELFPAY ==
--- OUTSIDE RECORDS SUMMARY | 2024-10-10 09:24 | XMS_ITS | Clinical Summary ---
Author Organization [facility] Address [address] [place] [address] Care Team Providers Care Party Plan Selling Distributor Name Role Phone Manuel Urbina MD Primary Care Provider Source Comments [facility],non-owned Affiliates and Associated Physician Practices is amultiple site organization consisting of ambulatory clinics and hospital sitesin [place], [place], [place] and [place]. This disclosure is being madepursuant to the Care Everywhere program and may not contain all information available regarding this patient. Last updated 18.[facility] [email or web address] Social History Tobacco Use Types Packs/Day Years Used Date Smoking Tobacco: Never Assessed Sex and Gender Information Value Date Recorded Sex Assigned at Not on file Gender Identity Not on file Sexual Orientation Not on file Plan of Treatment Health Maintenance Due Date Last Done Comments BONE DENSITY TESTING 1945 MEDICARE AWV 12 MONTHS 1945 HEPATITIS C SCREENING 03/06/1964 DTAP/TDAP/TD VACCINES (1 - Tdap) 1965 PNEUMOCOCCAL VACCINE 50+ (1 of 1 - PCV) 1996 ZOSTER VACCINE (1 of 2) 1996 Respiratory Syncytial Virus (RSV) Vaccine Pt: or over 60 yrs (1 - 1-dose 75+ series) 2021 COVID-19 VACCINE ( - 2023-2 5 season) 2024 INFLUENZA VACCINE (#1) 2024 DEPRESSION SCREENING 08/31/2024 HEPATITIS B VACCINE Aged Out No longe r eligible based on patient's age to complete this topic HIB VACCINE Aged Out No longer eligi ble based on patient's age to complete this topic HPV VACCINE Aged Out No longer eligi ble based on patient's age to complete this topic MENINGOCOCCAL (Group B) VACCINE Aged Out No longer eligible based on patient's age to complete this topic MENINGOCOCCAL VACCINE Aged Out No corazon ke eligible based on patient's age to complete this topic Care Teams Party Plan Selling Distributor Relationship Specialty Start Date End Date Manuel Urbina MD [address] [place] [address] PCP - General 06/27/22
--- OUTSIDE RECORDS SUMMARY | 2024-10-10 09:24 | XMS_ITS | Referral Summary ---
Author Organization [facility] at the [facility] Address [address] [place] [address] Care Team Providers Care Top And Trim Worker Name Role Phone Manuel Urbina MD Primary Care Provider [phone] Allergies No known active allergies Medications alendronate (FOSAMAX) 70 mg tablet Take 1 tablet (70 mg total) by mouth every 7 days Take in the morning with a full glass of water, on an empty stomach, and do not take anything else by mouth or lie down for the next 30 min. 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 No further workup needed patient to follow up PRN. Assessment & Plan (01/06/2023 1:59 PM CDT): Impression: Mild bilateral lower extremity arterial occlusive disease which is asymptomatic. Patient has upcoming appointment for evaluation for a total knee replacement. Plan: No contraindication for her total knee replacement from a vascular surgical standpoint. Recommend ongoing risk factor modifications and follow-up in 6 months for re-evaluation with repeat lower extremity arterial Doppler surveillance. Primary hypertension 01/06/2023 Assessment & Plan (07/28/2023 3:11 PM ENVIRONMENTAL LABORATORY TECHNICIAN): Hypertension chronic and controlled. Continue current medical management. Assessment & Plan (01/06/2023 1:22 PM CDT): Impression: Stable chronic hypertension. Plan: Medications reviewed and recommend continuing daily antihypertensive regimen as directed by patient's primary care physician. Mixed hyperlipidemia 01/06/2023 Assessment & Plan (07/28/2023 3:11 PM ENVIRONMENTAL LABORATORY TECHNICIAN): Hyperlipidemia chronic and controlled. Continue Lipitor. Assessment & Plan (01/06/2023 1:22 PM CDT): Hyperlipidemia: Stable chronic hyperlipidemia. Medications reviewed and I recommend continuing daily statin regimen as directed by patient's primary care physician. Immunizations Name Administration Dates Next Due Influenza, Quad, Adjuvantate d, Intramuscular 06/17/2022,06/25/2021 Influenza, Trivalent, High D ose, Split, Preservative Free, Intramuscular 06/21/2019,06/07/2018,06/16/2017,05/28 Influenza, Trivalent, Preser vative Free, Intramuscular 05/02/2020 Influenza, Unspecified 06/10/2023 Pneumococcal Polysaccharide PPV23 06/07/2018 Social History Tobacco Use Types Packs/Day Years Used Date Smoking Tobacco: Former Cigarettes Tobacco Cessation:Counseling Given: Not Answered Comments Unknown Sex and Gender Information Value Date Recorded Sex Assigned at Not on file Legal Sex Female 2:37 PM CDT Gender Identity Not on file Sexual Orientation Not on file Last Filed Vital Signs Vital Sign Reading Time Taken Comments Blood Pressure 159/77 07/08/2023 2:04 PM ENVIRONMENTAL LABORATORY TECHNICIAN Pulse 71 07/08/2023 2:04 PM ENVIRONMENTAL LABORATORY TECHNICIAN Temperature - - Respiratory Rate - - Oxygen Saturation - - Inhaled Oxygen Concentration - - Weight 83 kg (183 lb) 07/08/2023 2:04 PM ENVIRONMENTAL LABORATORY TECHNICIAN Height 156.2 cm (5' 1.5 ) 07/08/2023 2:04 PM ENVIRONMENTAL LABORATORY TECHNICIAN Body Mass Index 34.02 07/08/2023 2:04 PM ENVIRONMENTAL LABORATORY TECHNICIAN Plan of Treatment Not on file Insurance MEDICARE [employer] [place] MEDICARE [facility] Care Teams Top And Trim Worker Relationship Specialty Start Date End Date Manuel Urbina MD PCP - General Family Medicine 12/19/22
--- OUTSIDE RECORDS SUMMARY | 2024-10-10 09:24 | XMS_ITS | Encounter Summary ---
Author Organization [facility] Address [address] [place] [address] Care Team Providers Care Video Poker Floorman Name Role Phone Manuel Urbina MD Primary Care Provider Encounter Details Date Type Department Care Team (Late st Contact Info) Description 10/15/2022 Lab Requisition [facility] DermPath Lab [address] [place] [address] [place] [address] Social History Tobacco Use Types Packs/Day Years Used Date Smoking Tobacco: Never Assessed Sex and Gender Information Value Date Recorded Sex Assigned at Not on file Gender Identity Not on file Sexual Orientation Not on file documented as of this encounter Plan of Treatment Not on file documented as of this encounter Procedures Procedure Name Priority Date/Time Associated Diagnosis Comments DERMATOPATHOLOGY Routine 10/14/2022 12:0 0 AM BRONZE CHASER documented in this encounter Results * DERMATOPATHOLOGY (10/14/2022 12:00 AM BRONZE CHASER) Case Report Dermatopathology Report Case: [id number] Authorizing Provider: Fabio Polanco MD Collected: 10/14/2022 12:00 AM Ordering Location: [facility] Derm[facility] Lab Received: 10/15/2022 04:14 PM Pathologist: Mitzi Lima MD Specimens: A) - Skin, right ear crushelicus B) - Skin, right lateral base of neck C) - Skin, left lateral upper cutaneous lip 1:20 PM BRONZE CHASER DERMATOPATHOLOGY LABORATORY Final Diagnosis Specimen A. 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 SKIN, right lateral base of neck: SEBORRHEIC KERATOSIS (L82.1) Specimen C. SKIN, left lateral upper cutaneous lip: BASAL CELL CARCINOMA, NODULAR TYPE (C44.319) 3 1:20 PM [facility] DERMATOPATHOLOGY LABORATORY Clinical History A: R/O SCC B: R/O ISK vs Melanocytic Lesion C: R/O BCC 3 1:20 PM [facility] DERMATOPATHOLOGY LABORATORY Gross Description Specimen A: Received is one formalin filled container labeled with the patient's name and designated right ear crushelicus. The specimen consists of a shave biopsy measuring 6x5x1 mm. Jar 0. Specimen B: Received is one formalin filled container labeled with the patient's name and designated right lateral base of neck. The specimen consists of two(2) shaved biopsies measuring 6x4x2 mm and 3x1x1 mm. Jar 0. Specimen C: Received is one formalin filled container labeled with the patient's name and designated left lateral upper cutaneous lip. The specimen consists of a shave biopsy measuring 9x6x3 mm. Jar 0. 3 1:20 PM [facility] DERMATOPATHOLOGY LABORATORY Microscopic Description Specimen A. SKIN, right ear crushelicus: There is epidermal hyperplasia overlying dilated blood vessels and fibroplasia. Specimen B. SKIN, right lateral base of neck: Sections show an acanthotic lesion composed of relatively uniform keratinocytes. There is hyperkeratosis and pseudo horn cysts formation. Specimen C. SKIN, left lateral upper cutaneous lip: Within the dermis there are aggregates of basaloid cells with a high nuclear to cytoplasmic ratio and peripheral palisading. 3 1:20 PM [facility] DERMATOPATHOLOGY LABORATORY Disclaimer An external and internal positive and negative controls are appropriate for the histochemical, immunohistochemical and immunofluorescence stain(s) in this case (if any), except where stated explicitly. The performance characteristics of the stain(s) cited in this report were developed and its performance characteristic determined by the Dermatopathology Laboratory at [facility], directed by Dr. Eli Andrea. These tests need not be, and therefore are not, approved by the [place] Food and Drug Administration. The tests are used for clinical purposes. Billing Codes Specimen Charges Stain Charges 40624 [id number] 1 1 1 3 1:20 PM BRONZE CHASER DERMATOPATHOLOGY LABORATORY Embedded Images 3 1:20 PM BRONZE CHASER DERMATOPATHOLOGY LABORATORY Pathology/Cytology TISSUE SPECIMEN FROM SKIN / Unknown 10/14/2022 10/15/2022 4:14 PM BRONZE CHASER Miscellaneous samples (specimen) TISSUE SPECIMEN FROM SKIN / Unknown 10/14/2022 10/15/2022 4:14 PM BRONZE CHASER Miscellaneous samples (specimen) TISSUE SPECIMEN FROM SKIN / Unknown 10/14/2022 10/15/2022 4:14 PM BRONZE CHASER Fabio Polanco MD LAB - PATHOLOGY/CYTO LOGY ORDERABLES DERMATOPATHOLOGY LAB[facility] Medicine [address] [place] [address], [address] [phone] documented in this encounter Visit Diagnoses Not on filedocumented in this encounter Care Teams Video Poker Floorman Relationship Specialty Start Date End Date Manuel Urbina MD [address] [place] [address] PCP - General 06/27/22 documented as of this encounter
--- OUTSIDE RECORDS SUMMARY | 2024-10-10 09:24 | XMS_ITS | Clinical Summary ---
Author Organization 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 Continue current medical management. Assessment & Plan (01/06/2023 1:22 PM CDT): Impression: Stable chronic hypertension. Plan: Medications reviewed and recommend continuing daily antihypertensive regimen as directed by patient's primary care physician. Mixed hyperlipidemia 01/06/2023 Assessment & Plan (07/28/2023 3:11 PM NURSING ADMINISTRATOR): Hyperlipidemia chronic and controlled. Continue Lipitor. Assessment [...] Influenza, Unspecified 06/10/2023 Pneumococcal Polysaccharide PPV23 06/07/2018 Surgical History Surgery Date Site/Laterality Comments CATARACT EXTRACTION CARPAL TUNNEL RELEASE Medical History Medical History Date Comments COPD (chronic obstructive pulmonary disease) (HC C) High cholesterol Hypotension Sleep apnea Family History Medical History Relation Name Comments Kidney disease Father No Known Problems Mother Relation Name Status Comments Father Mother Social History Tobacco Use Types Packs/Day Years Used Date Smoking Tobacco: Former Cigarettes Tobacco Cessation:Counseling Given: Not Answered Comments Unknown Sex and Gender Information Value Date Recorded Sex Assigned at Not on file Legal Sex Female 2:37 PM CDT Gender Identity Not on file Sexual Orientation Not on file Obstetrics History Last Filed Vital Signs Vital Sign Reading Time Taken Comments Blood Pressure 159/77 07/08/2023 2:04 PM NURSING ADMINISTRATOR Pulse 71 07/08/2023 2:04 PM NURSING ADMINISTRATOR Temperature - - Respiratory Rate - - Oxygen Saturation - - Inhaled Oxygen Concentration - - Weight 83 kg (183 lb) 07/08/2023 2:04 PM NURSING ADMINISTRATOR Height 156.2 cm (5' 1.5 ) 07/08/2023 2:04 PM NURSING ADMINISTRATOR Body Mass Index 34.02 07/08/2023 2:04 PM NURSING ADMINISTRATOR Plan of Treatment Health Maintenance Due Date Last Done Comments Depression Screening 1945 Fall Risk Assessment 1945 Hepatitis C Screening 1945 Osteoporosis Screening-Bone Density Scan 1945 DTaP/Tdap/Td Vaccine (1 - Tdap) 1957 Hepatitis B Screening 1964 Well Visit 65+ 2011 Zoster Vaccine (2 of 3) 03/28/2014 01/31/2014 Pneumococcal vaccine 65+ (2 of 2 - PCV) 06/07/2019 06/07/2018 Covid-19 Vaccine (4 - 2023-2 5 season) 2024 08/08/2021, 11/13/2020, 10/26/2020 Influenza Vaccine (#1) 2024 , 06/17/2022, 06/25/2021, Additional history exists Insurance MEDICARE [facility]IC[facility] Care Teams Director Of Agriculture Relationship Specialty Start Date End Date Manuel Urbina MD PCP - General Family Medicine 12/19/22
--- OUTSIDE RECORDS SUMMARY | 2024-10-10 09:24 | XMS_ITS | Clinical Summary ---
Author Organization [facility] Address [address] [place] [address] Care Team Providers Care Research Hydraulic Engineer Name Role Phone Laurel Escobedo MD Primary Care Provider [phone] Allergies No known active allergies Medications calcium carbonate (OS-VY) 600 MG tablet Take 1,250 mg by mouth daily. Active Vitamin D3 (VITAMIN D) 50 mcg tablet Take 1 tablet (50 mcg total) by mouth daily. Active omeprazole (PRILOSEC) 20 MG capsuleIndication s:Gastroesophagea l reflux disease without esophagitis Take 1 capsule (20 mg total) by mouth daily. 90 capsule 1 4 Active atorvastatin (LIPITOR) 10 MG tabletIndications :Elevated lipoprotein(a) Take 1 tablet (10 mg total) by mouth daily. 90 tablet 1 4 Active lisinopril (PRINIVIL) 40 MG tabletIndications :Hypertension, essential Take 1 tablet (40 mg total) by mouth daily. 90 tablet 1 4 Active amLODIPine (NORVASC) 5 MG tabletIndications :Essential hypertension TAKE 1 TABLET(5 MG) BY MOUTH DAILY 90 tablet 4 Active Active Problems No known active problems Immunizations Name Administration Dates Next Due Fluzone High Dose - >Age 65 (Prefilled Syringe) 06/10/2023,06/17/2022,06/17/2022,2020,06/25/2021 Influenza (Generic) 06/10/2023,05/02/2020 Influenza Adult (Generic) 06/21/2019,03/2018,06/16/2017,2015 Pneumococcal (Pneumovax 23) 06/07/2018 Social History Tobacco Use Types Packs/Day Years Used Date Smoking Tobacco: Former Cigarettes Smokeless Tobacco: Never Tobacco Cessation:Counseling Given: No Alcohol Use Standard Drinks/Week Comments Not Currently 6.7 (1 standard drink = 0.6 oz p ure alcohol) PHQ-2 Answer Date Recorded Patient Health Questionnaire-2 Score 0 12/25/2023 Comments No Sex and Gender Information Value Date Recorded Sex Assigned at Not on file Legal Sex Female 4:31 PM CDT Gender Identity Not on file Sexual Orientation Not on file Last Filed Vital Signs Vital Sign Reading Time Taken Comments Blood Pressure 98 02/08/2024 11:53 AM CDT Pulse 82 02/08/2024 11:19 AM CDT Temperature 37.1 C (98.8 F) 02/08/2024 11:19 AM CDT Respiratory Rate 18 02/08/2024 11:19 AM CDT Oxygen Saturation 94% 02/08/2024 11:19 AM CDT Inhaled Oxygen Concentration - - Weight 85.9 kg (189 lb 6.4 oz) 02/08/2024 11:19 AM CDT Height 156.2 cm (5' 1.5 ) 02/08/2024 11:19 AM CD T Body Mass Index 35.21 02/08/2024 11:19 AM CDT Plan of Treatment Health Maintenance Due Date Last Done Comments Kidney Health Evaluation 1946 Hemoglobin A1C 1946 Lipid Panel 1946 Diabetes: Retinopathy Eye Exam 1964 Annual Medicare Wellness Visit 2011 Pneumococcal Vaccine: 65+ Years (2 of 2 - PCV) 06/07/2019 06/07/2018 COVID-19 Vaccine (4 - season) 2024 08/08/2021, 11/13/2020, 10/26/2020 Influenza Adult (#1) 2024 06/10/2023, 06/10/2023, 06/17/2022, Additional history exists PHQ-2 (Physician [place]) 08/31/2024 12/25/2023 DTaP, Tdap and Td Vaccines (1 - Tdap) 12/24/2024 Postponed from 1965 (Patient Refused) Dexa Scan (General) 12/24/2024 Postpone d from 2011 (Patient Refused) PHQ-2 (Physician [place]) 12/24/2024 12/25/2023 RSV Immunization or 60+ Years (1 - 1-dose 75+ series) 12/24/2024 Postponed from 2021 (Patient Refused) Zoster Vaccines (1 of 2) 12/24/2024 Pos tponed from 1996 (Patient Refused) Hepatitis C 12/24/2053 Postponed from 1964 (Patient Refused) Meningococcal B Vaccine Aged Out No l onger eligible based on patient's age to complete this topic Meningococcal Vaccine Aged Out No corazon ke eligible based on patient's age to complete this topic RSV Immunizations Under 20 Months Aged Out No longer eligible based on patient's age to complete this topic Insurance [facility] MEDICARE Care Teams Research Hydraulic Engineer Relationship Specialty [place] [address] [place] [address] PCP - General INTERNAL MEDICINE 03/21/24
--- OUTSIDE RECORDS SUMMARY | 2024-10-10 09:24 | XMS_ITS | Referral Summary ---
Author Organization [facility] Address [address] [place] [address] Care Team Providers Care Slot Attendant Name Role Phone Manuel Urbina MD Primary Care Provider Source Comments [facility],non-owned Affiliates and Associated Physician Practices is amultiple site organization consisting of ambulatory clinics and hospital sitesin [place], [place], [place] and [place]. This disclosure is being madepursuant to the Care Everywhere program and may not contain all information available regarding this patient. Last updated 18.[facility] Social History Tobacco Use Types Packs/Day Years Used Date Smoking Tobacco: Never Assessed Sex and Gender Information Value Date Recorded Sex Assigned at Not on file Gender Identity Not on file Sexual Orientation Not on file Plan of Treatment Not on file Care Teams Slot Attendant Relationship Specialty Start Date End Date Manuel rUbina MD [address] [place] [address] PCP - General 06/27/22
--- OUTSIDE RECORDS SUMMARY | 2024-10-10 09:24 | XMS_ITS | Patient Health Summary ---
Author Organization [facility] Address [address] [place] [address] Care Team Providers Care Pharmacy Data Analyst Name Role Phone Manuel Urbina MD Primary Care Provider Note from [facility],non-owned Affiliates and Associated Physician Practices is amultiple site organization consisting of ambulatory clinics and hospital sitesin [place], [place], [place] and [place]. This disclosure is being madepursuant to the Care Everywhere program and may not contain all information available regarding this patient. Last updated 18.[facility] Social History Tobacco Use Types Packs/Day Years Used Date Smoking Tobacco: Never Assessed Sex and Gender Information Value Date Recorded Sex Assigned at Not on file Gender Identity Not on file Sexual Orientation Not on file Procedures * DERMATOPATHOLOGY(Performed 10/14/2022) Results * DERMATOPATHOLOGY (10/14/2022 12:00 AM ADULT PAROLE OFFICER) Case Report Dermatopathology Report Case: [id number] Authorizing Provider: Fabio Polanco MD Collected: 10/14/2022 12:00 AM Ordering Location: [facility] DermPath Lab Received: 10/15/2022 04:14 PM Pathologist: Mitzi Lima MD Specimens: A) - Skin, right ear crushelicus B) - Skin, right lateral base of neck C) - Skin, left lateral upper cutaneous lip 3 1:20 PM ADULT PAROLE OFFICER DERMATOPATHOLOGY LABORATORY Final Diagnosis Specimen A. 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 SKIN, right lateral base of neck: SEBORRHEIC KERATOSIS (L82.1) Specimen C. SKIN, left lateral upper cutaneous lip: BASAL CELL CARCINOMA, NODULAR TYPE (C44.319) 3 1:20 PM ADULT PAROLE OFFICER DERMATOPATHOLOGY LABORATORY Clinical History A: R/O SCC B: R/O ISK vs Melanocytic Lesion C: R/O BCC 3 1:20 PM [facility] Gross Description Specimen A: Received [...] 9x6x3 mm. Jar 0. 3 1:20 PM [facility] Microscopic Description Specimen A. SKIN, [...] ratio and peripheral palisading. 3 1:20 PM [facility] Disclaimer An external and internal positive and negative controls are appropriate for the histochemical, immunohistochemical and immunofluorescence stain(s) in this case (if any), except where stated explicitly. The performance characteristics of the stain(s) cited in this report were developed and its performance characteristic determined by the Dermatopathology Laboratory at [facility], directed by Dr. Eli Andrea. These tests need not be, and therefore are not, approved by the [place] Food and Drug Administration. The tests are used for clinical purposes. Billing Codes Specimen Charges Stain Charges 46986 [id number] [id number] 1 1 1 3 1:20 PM [facility] Embedded Images 3 1:20 PM [facility] Pathology/Cytology TISSUE SPECIMEN FROM SKIN / Unknown 10/14/2022 10/15/2022 4:14 PM ADULT PAROLE OFFICER Miscellaneous samples (specimen) TISSUE SPECIMEN FROM SKIN / Unknown 10/14/2022 10/15/2022 4:14 PM ADULT PAROLE OFFICER Miscellaneous samples (specimen) TISSUE SPECIMEN FROM SKIN / Unknown 10/14/2022 10/15/2022 4:14 PM ADULT PAROLE OFFICER Fabio Polanco MD LAB - PATHOLOGY/CYTO LOGY ORDERABLES DERMATOPATHOLOGY LABORATORY [facility] - Department of Dermatology [facility] Specialized Medicine [address] [place] [address], [address] [phone] Care Teams Pharmacy Data Analyst Relationship Specialty Start Date End Date Manuel Urbina MD [address] [place] [address] PCP - General 06/27/22
[2024-10-10 09:36] LABS: Basophils Percent Auto 0.7 % (0.2-1.2); Eosinophils Absolute Auto 0.1 K/mm3 (0-0.3); Eosinophils Percent Auto 1.3 % (0-4.4); Hematocrit 41.2 % (37.0-47.0); Hemoglobin 13.1 g/dL (12.0-15.0); Immature Granulocyte Absolute 0.01 K/mm3 (0.00-0.031); Immature Granulocyte Percent A 0.2 % (0-0.5); Lymphocytes Absolute Auto 2.33 K/mm3 (0.9-3.2); Lymphocytes Percent Auto 38.5 % (18.3-44.2); Mean Corpuscular HGB Conc 31.8 g/dl (32-36); Mean Corpuscular Hemoglobin 28.6 pg (26-34); Mean Platelet Volume 11.2 fl (7.4-10.4); Monocytes Absolute Auto 0.5 K/mm3 (0.1-0.6); Monocytes Percent Auto 7.4 % (2.6-8.5); Neutrophils Absolute Auto 3.1 K/mm3 (1.3-6.7); Neutrophils Percent Auto 51.9 % (45.5-73.1); Platelet Count Result 185 k/mm3 (150-375); Red Blood Count 4.58 M/mm3 (4.2-5.4); Red Cell Distribution Width 12.8 % (11.5-14.5); White Blood Count 6.1 K/mm3 (4.5-10.0)
== END 2024-10-10 09:01 | disposition home or self-care (01) ==
PROVIDERS: PCP Family Medicine; Visit Provider Registered Nurse
DX: E78.5 Hyperlipidemia, unspecified (principal); I10 Essential (primary) hypertension; K21.9 Gastro-esophageal reflux disease without esophagitis
CPT/HCPCS: 36415; 85025

== ENCOUNTER 2024-10-11 07:21 | Outpatient (CLI) | payer MEDICARE, SELFPAY ==
--- OUTSIDE RECORDS SUMMARY | 2024-10-11 07:31 | XMS_ITS | Encounter Summary ---
Author Organization [facility] Address [address] [place] [address] Care Team Providers Care Traffic Worker Name Role Phone Manuel Urbina MD Primary Care Provider Encounter Details Date Type Department Care Team (Late st Contact Info) Description 10/15/2022 Lab Requisition [facility] DermPath Lab [address] [place] [address] [place] [address] Social History Tobacco Use Types [...] Comments DERMATOPATHOLOGY Routine 10/14/2022 12:0 0 AM ORDNANCE ENGINEERING TECHNICIAN documented in this encounter Results * DERMATOPATHOLOGY (10/14/2022 12:00 AM ORDNANCE ENGINEERING TECHNICIAN) Case Report Dermatopathology Report Case: [id number] Authorizing Provider: Fabio Polanco MD Collected: 10/14/2022 12:00 AM Ordering Location: [facility] DermPath Lab Received: 10/15/2022 04:14 PM Pathologist: Mitzi Lima MD Specimens: A) - Skin, right ear crushelicus B) - Skin, right lateral base of neck C) - Skin, left lateral upper cutaneous lip 1:20 PM ORDNANCE ENGINEERING TECHNICIAN DERMATOPATHOLOGY LABORATORY Final Diagnosis Specimen A. 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 SKIN, right lateral base of neck: SEBORRHEIC KERATOSIS (L82.1) Specimen C. SKIN, left lateral upper cutaneous lip: BASAL CELL CARCINOMA, NODULAR TYPE (C44.319) 3 1:20 PM [facility] DERMATOPATHOLOGY LABORATORY Clinical History A: R/O SCC B: R/O ISK vs Melanocytic Lesion C: R/O BCC 3 1:20 PM [facility] DERMATOPATHOLOGY LABORATORY Gross Description Specimen A: Received [...] 9x6x3 mm. Jar 0. 3 1:20 PM [facility] DERMATOPATHOLOGY LABORATORY Microscopic Description Specimen A. SKIN, [...] ratio and peripheral palisading. 3 1:20 PM [facility] DERMATOPATHOLOGY LABORATORY Disclaimer An external and internal positive and negative controls are appropriate for the histochemical, immunohistochemical and immunofluorescence stain(s) in this case (if any), except where stated explicitly. The performance characteristics of the stain(s) cited in this report were developed and its performance characteristic determined by the Dermatopathology Laboratory at [facility], directed by Dr. Eli Andrea. These tests need not be, and therefore are not, approved by the [place] Food and Drug Administration. The tests are used for clinical purposes. Billing Codes Specimen Charges Stain Charges 21507 [id number] 1 1 1 3 1:20 PM ORDNANCE ENGINEERING TECHNICIAN DERMATOPATHOLOGY LABORATORY Embedded Images 3 1:20 PM ORDNANCE ENGINEERING TECHNICIAN DERMATOPATHOLOGY LABORATORY Pathology/Cytology TISSUE SPECIMEN FROM SKIN / Unknown 10/14/2022 10/15/2022 4:14 PM ORDNANCE ENGINEERING TECHNICIAN Miscellaneous samples (specimen) TISSUE SPECIMEN FROM SKIN / Unknown 10/14/2022 10/15/2022 4:14 PM ORDNANCE ENGINEERING TECHNICIAN Miscellaneous samples (specimen) TISSUE SPECIMEN FROM SKIN / Unknown 10/14/2022 10/15/2022 4:14 PM ORDNANCE ENGINEERING TECHNICIAN Fabio Polanco MD LAB - PATHOLOGY/CYTO LOGY ORDERABLES DERMATOPATHOLOGY LAB[facility]ATORY [facility] Medicine [address] [place] [address], [address] [phone] documented in this encounter Visit Diagnoses Not on filedocumented in this encounter Care Teams Traffic Worker Relationship Specialty Start Date End Date Manuel Urbina MD [address] [place] [address] PCP - General 06/27/22 documented as of this encounter
--- OUTSIDE RECORDS SUMMARY | 2024-10-11 07:31 | XMS_ITS | Patient Health Summary ---
Author Organization [facility] Address [address] [facility] [place] [address] Care Team Providers Care Analytical Manager Name Role Phone Manuel Urbina MD Primary Care Provider [phone] Note from [facility],non-owned Affiliates and Associated Physician Practices is amultiple site organization consisting of ambulatory clinics and hospital sitesin [place], [place], [place] and [place]. This disclosure is being madepursuant to the Care Everywhere program and may not contain all information available regarding this patient. Last updated 18.[facility] Social History Tobacco Use Types Packs/Day Years Used Date Smoking Tobacco: Never Assessed Sex and Gender Information Value Date Recorded Sex Assigned at Not on file Gender Identity Not on file Sexual Orientation Not on file Procedures * DERMATOPATHOLOGY(Performed 10/14/2022) Results * DERMATOPATHOLOGY (10/14/2022 12:00 AM ART TRACER) Case Report Dermatopathology Report Case: [id number] Authorizing Provider: Fabio Polanco MD Collected: 10/14/2022 12:00 AM Ordering Location: [facility] DermPath Lab Received: 10/15/2022 04:14 PM Pathologist: Mitzi Lima MD Specimens: A) - Skin, right ear crushelicus B) - Skin, right lateral base of neck C) - Skin, left lateral upper cutaneous lip 3 1:20 PM ART TRACER DERMATOPATHOLOGY LABORATORY Final Diagnosis Specimen A. 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 SKIN, right lateral base of neck: SEBORRHEIC KERATOSIS (L82.1) Specimen C. SKIN, left lateral upper cutaneous lip: BASAL CELL CARCINOMA, NODULAR TYPE (C44.319) 3 1:20 PM ART TRACER DERMATOPATHOLOGY LABORATORY Clinical History A: R/O SCC B: R/O ISK vs Melanocytic Lesion C: R/O BCC 3 1:20 PM [facility] DERMATOPATHOLOGY LABORATORY Gross Description Specimen [...] 9x6x3 mm. Jar 0. 3 1:20 PM [facility] DERMATOPATHOLOGY LABORATORY Microscopic Description Specimen [...] ratio and peripheral palisading. 3 1:20 PM [facility] DERMATOPATHOLOGY LABORATORY Disclaimer An external and internal positive and negative controls are appropriate for the histochemical, immunohistochemical and immunofluorescence stain(s) in this case (if any), except where stated explicitly. The performance characteristics of the stain(s) cited in this report were developed and its performance characteristic determined by the Dermatopathology Laboratory at [facility], directed by Dr. Eli Andrea. These tests need not be, and therefore are not, approved by the [place] Food and Drug Administration. The tests are used for clinical purposes. Billing Codes Specimen Charges Stain Charges 02158 50136 61833 1 1 1 3 1:20 PM [facility] DERMATOPATHOLOGY LABORATORY Embedded Images 3 1:20 PM [facility] DERMATOPATHOLOGY LABORATORY Pathology/Cytology TISSUE SPECIMEN FROM SKIN / Unknown 10/14/2022 10/15/2022 4:14 PM ART TRACER Miscellaneous samples (specimen) TISSUE SPECIMEN FROM SKIN / Unknown 10/14/2022 10/15/2022 4:14 PM ART TRACER Miscellaneous samples (specimen) TISSUE SPECIMEN FROM SKIN / Unknown 10/14/2022 10/15/2022 4:14 PM ART TRACER Fabio Polanco MD LAB - PATHOLOGY/CYTO LOGY ORDERABLES DERMATOPATHOLOGY LABORATORY [facility] - Department of Dermatology [facility] [address] [place] [address], [address] [phone] Care Teams Analytical Manager Relationship Specialty Start Date End Date Manuel Urbina MD [address] [place] [address] PCP - General 06/27/22
--- OUTSIDE RECORDS SUMMARY | 2024-10-11 07:31 | XMS_ITS | Referral Summary ---
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 Continue current medical management. Assessment & Plan (01/06/2023 1:22 PM CDT): Impression: Stable chronic hypertension. Plan: Medications reviewed and recommend continuing daily antihypertensive regimen as directed by patient's primary care physician. Mixed hyperlipidemia 01/06/2023 Assessment & Plan (07/28/2023 3:11 PM PUTAWAY DRIVER): Hyperlipidemia chronic and controlled. Continue Lipitor. Assessment [...] Comments Blood Pressure 159/77 07/08/2023 2:04 PM PUTAWAY DRIVER Pulse 71 07/08/2023 2:04 PM PUTAWAY DRIVER Temperature - - Respiratory Rate - - Oxygen Saturation - - Inhaled Oxygen Concentration - - Weight 83 kg (183 lb) 07/08/2023 2:04 PM PUTAWAY DRIVER Height 156.2 cm (5' 1.5 ) 07/08/2023 2:04 PM PUTAWAY DRIVER Body Mass Index 34.02 07/08/2023 2:04 PM PUTAWAY DRIVER Plan of Treatment Not on file Insurance MEDICARE [employer] [place] MEDICARE REPLACED BY [facility] Care Teams Account Retention Representative Relationship Specialty Start Date End Date Manuel Urbina MD PCP - General Family Medicine 12/19/22
--- OUTSIDE RECORDS SUMMARY | 2024-10-11 07:31 | XMS_ITS | Clinical Summary ---
Author Organization [facility] at the [facility] Office Center Address [address] [place] [address] Care Team Providers Care International Student Counselor Name Role Phone Manuel Urbina MD Primary Care Provider [phone] Allergies No known active allergies Medications alendronate [...] Problem Noted Date Diagnosed Date Atherosclerosis of t[place] & ha[place] ar aydin of both lower extremities with intermittent claudication 01/06/2023 Assessment & Plan (07/29/2023 1:46 PM MAIL PROCESSING ASSOCIATE): Patient asymptomatic with no evidence of clinically [...] 01/06/2023 Assessment & Plan (07/28/2023 3:11 PM MAIL PROCESSING ASSOCIATE): Hypertension chronic and controlled. Continue current medical management. Assessment & Plan (01/06/2023 1:22 PM CDT): Impression: Stable chronic hypertension. Plan: Medications reviewed and recommend continuing daily antihypertensive regimen as directed by patient's primary care physician. Mixed hyperlipidemia 01/06/2023 Assessment & Plan (07/28/2023 3:11 PM MAIL PROCESSING ASSOCIATE): Hyperlipidemia chronic and controlled. Continue Lipitor. Assessment [...] Comments Blood Pressure 159/77 07/08/2023 2:04 PM MAIL PROCESSING ASSOCIATE Pulse 71 07/08/2023 2:04 PM MAIL PROCESSING ASSOCIATE Temperature - - Respiratory Rate - - Oxygen Saturation - - Inhaled Oxygen Concentration - - Weight 83 kg (183 lb) 07/08/2023 2:04 PM MAIL PROCESSING ASSOCIATE Height 156.2 cm (5' 1.5 ) 07/08/2023 2:04 PM MAIL PROCESSING ASSOCIATE Body Mass Index 34.02 07/08/2023 2:04 PM MAIL PROCESSING ASSOCIATE Plan of Treatment Health Maintenance Due Date [...] 06/17/2022, 06/25/2021, Additional history exists Insurance MEDICARE [facility] MEDICARE [facility] Care Teams International Student Counselor Relationship Specialty Start Date End Date Manuel Urbina MD PCP - General Family Medicine 12/19/22
--- OUTSIDE RECORDS SUMMARY | 2024-10-11 07:31 | XMS_ITS | Clinical Summary ---
Author Organization [facility] Address [address] [place] [address] Care Team Providers Care Professor Of Visual Arts Name Role Phone Manuel Urbina MD Primary Care Provider Source Comments [facility],non-owned Affiliates and Associated Physician Practices is amultiple site organization consisting of ambulatory clinics and hospital sitesin [place], [place], [place] and [place]. This disclosure is being madepursuant to the Care Everywhere program and may not contain all information available regarding this patient. Last updated 18.[facility] [email or web address] Social History Tobacco Use Types Packs/Day Years [...] age to complete this topic Care Teams Professor Of Visual Arts Relationship Specialty Start Date End Date Manuel Urbina MD [address] [place] [address] PCP - General 06/27/22
--- OUTSIDE RECORDS SUMMARY | 2024-10-11 07:31 | XMS_ITS | Referral Summary ---
Author Organization [facility] Address [address] [place] [address] Care Team Providers Care Chief Sales Officer Name Role Phone Manuel Urbina MD Primary Care Provider Source Comments [facility],non-owned Affiliates and Associated Physician Practices is amultiple site organization consisting of ambulatory clinics and hospital sitesin [place], [place], [place] and [place]. This disclosure is being madepursuant to the Care Everywhere program and may not contain all information available regarding this patient. Last updated 18.[facility] Social History Tobacco Use Types Packs/Day Years Used Date Smoking Tobacco: Never Assessed Sex and Gender Information Value Date Recorded Sex Assigned at Not on file Gender Identity Not on file Sexual Orientation Not on file Plan of Treatment Not on file Care Teams Chief Sales Officer Relationship Specialty Start Date End Date Manuel Urbina MD [address] [place] [address] PCP - General 06/27/22
--- OUTSIDE RECORDS SUMMARY | 2024-10-11 07:31 | XMS_ITS | Clinical Summary ---
Author Organization [facility] Address [address] [place] [address] Care Team Providers Care Special Diet Cook Name Role Phone Laurel Escobedo MD Primary Care Provider [phone] Allergies No known active allergies Medications calcium [...] 06/10/2023, 06/17/2022, Additional history exists PHQ-2 (Physician [place]) 08/31/2024 12/25/2023 DTaP, Tdap and Td Vaccines (1 - Tdap) 12/24/2024 Postponed from 1965 (Patient Refused) Dexa Scan (General) 12/24/2024 Postpone d from 2011 (Patient Refused) PHQ-2 (Physician [place]) 12/24/2024 12/25/2023 RSV Immunization or 60+ Years [...] patient's age to complete this topic Insurance [facility] MEDICARE Care Teams Special Diet Cook Relationship Specialty [place] [address] [place] [address] PCP - General INTERNAL MEDICINE 03/21/24
[2024-10-11 08:20] LABS: Alanine Aminotransferase 15 U/L (6-35); Albumin Level 4.2 g/dL (3.5-5.1); Alkaline Phosphatase 79 U/L (38-126); Anion Gap 8 mmol/L (4-12); Aspartate Amino Transferase 23 U/L (14-36); Bilirubin,Total 0.5 mg/dL (0.2-1.3); Blood Urea Nitrogen 14 mg/dL (7-17); Calcium 9.3 mg/dL (8.4-10.2); Carbon Dioxide 30 mmol/L (22-30); Chloride 102 mmol/L (98-107); Cholesterol 175 mg/dL (0-200); Estimated Glomerular Filt Rate > 60; Glucose 93 mg/dL (65-110); HDL Direct 46 mg/dL; Potassium 3.9 mmol/L (3.4-5.0); Sodium 140 mmol/L (137-145); Triglycerides 159 mg/dL (<150)
[2024-10-11 08:31] LABS: LDL Cholesterol Direct 88 mg/dL
== END 2024-10-11 07:22 | disposition home or self-care (01) ==
PROVIDERS: PCP Family Medicine; Visit Provider Registered Nurse
DX: K21.9 Gastro-esophageal reflux disease without esophagitis (principal); E78.5 Hyperlipidemia, unspecified; I10 Essential (primary) hypertension
CPT/HCPCS: 36415; 80053; 80061

== ENCOUNTER 2025-04-11 08:12 | Outpatient (CLI) | payer MEDICARE, SELFPAY ==
--- OUTSIDE RECORDS SUMMARY | 2025-04-11 08:20 | XMS_ITS | Clinical Summary ---
Author Organization [facility] Address [address] [place] [address] Care Team Providers Care Food Preservation Scientist Name Role Phone Manuel Urbina MD Primary Care Provider Source Comments [facility],non-owned Affiliates and Associated Physician Practices is amultiple site organization consisting of ambulatory clinics and hospital sitesin [place], [place], [place] and [place]. This disclosure is being madepursuant to the Care Everywhere program and may not contain all information available regarding this patient. Last updated 18.[facility] [employer] Social History Tobacco Use Types Packs/Day Years Used Date Smoking Tobacco: Never Assessed Comments Unknown Sex and Gender Information Value Date Recorded Sex Assigned at Not on file Legal Sex Female 9:50 AM CDT Gender Identity Not on file Sexual [...] VACCINE ( - 2023-2 5 season) 2024 DEPRESSION SCREENING 08/31/2024 INFLUENZA VACCINE (#1) 2025 HEPATITIS B VACCINE Aged Out No longe r eligible based on patient's age to complete this topic HIB VACCINE Aged Out No longer eligi ble based on patient's age to complete this topic HPV VACCINE Aged Out No longer eligi ble based on patient's age to complete this topic MENINGOCOCCAL (Group B) VACC INE SHARED DECISION-MAKING Aged Out No longer eligibl e based on patient's age to complete this topic MENINGOCOCCAL GROUPS A/C/Y/W VACCINE Aged Out No longer eligible b ased on patient's age to complete this topic Insurance MEDICARE Care Teams Food Preservation Scientist Relationship Specialty Start Date End Date Manuel Urbina MD [address] [place] [address] PCP - General 06/27/22
--- OUTSIDE RECORDS SUMMARY | 2025-04-11 08:20 | XMS_ITS | Encounter Summary ---
Author Organization [facility] Address [address] [place] [address] Care Team Providers Care Cosmetic Consultant Name Role Phone Manuel Urbina MD Primary Care Provider [phone] Encounter Details Date Type Department Care Team (Late st Contact Info) Description 10/15/2022 Lab Requisition [facility] DermPath Lab [address] [place] [address] Fabio Polanco MD [address] [place] [id number] Social History Tobacco Use Types Packs/Day [...] Comments DERMATOPATHOLOGY Routine 10/14/2022 12:0 0 AM BEAD FORMING MACHINE SET UP OPERATOR documented in this encounter Results * DERMATOPATHOLOGY (10/14/2022 12:00 AM BEAD FORMING MACHINE SET UP OPERATOR) Case Report Dermatopathology Report Case: [id number] Authorizing Provider: Fabio Polanco MD Collected: 10/14/2022 12:00 AM Ordering Location: [facility]erm[facility] Lab Received: 10/15/2022 04:14 PM Pathologist: Mitzi Lima MD Specimens: A) - Skin, right ear crushelicus B) - Skin, right lateral base of neck C) - Skin, left lateral upper cutaneous lip 1:20 PM BEAD FORMING MACHINE SET UP OPERATOR DERMATOPATHOLOGY LABORATORY Final Diagnosis Specimen A. 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 SKIN, right lateral base of neck: SEBORRHEIC KERATOSIS (L82.1) Specimen C. SKIN, left lateral upper cutaneous lip: BASAL CELL CARCINOMA, NODULAR TYPE (C44.319) 1:20 PM [facility] DERMATOPATHOLOGY LABORATORY at [address] BEAD FORMING MACHINE SET UP OPERATOR Clinical History A: R/O SCC B: R/O ISK vs Melanocytic Lesion C: R/O BCC 1:20 PM [facility] DERMATOPATHOLOGY LABORATORY Gross Description Specimen A: Received [...] shave biopsy measuring 9x6x3 mm. Jar 0. 1:20 PM [facility] DERMATOPATHOLOGY LABORATORY Microscopic Description Specimen A. SKIN, [...] nuclear to cytoplasmic ratio and peripheral palisading. 1:20 PM [facility] DERMATOPATHOLOGY LABORATORY Disclaimer An external and internal positive and negative controls are appropriate for the histochemical, immunohistochemical and immunofluorescence stain(s) in this case (if any), except where stated explicitly. The performance characteristics of the stain(s) cited in this report were developed and its performance characteristic determined by the Dermatopathology Laboratory at [facility], directed by Dr. Eli Andrea. These tests need not be, and therefore are not, approved by the [place] Food and Drug Administration. The tests are used for clinical purposes. Billing Codes Specimen Charges Stain Charges 21413 [id number] 1 1 1 3 1:20 PM BEAD FORMING MACHINE SET UP OPERATOR DERMATOPATHOLOGY LABORATORY Embedded Images 3 1:20 PM BEAD FORMING MACHINE SET UP OPERATOR DERMATOPATHOLOGY LABORATORY Pathology/Cytology TISSUE SPECIMEN FROM SKIN / Unknown 10/14/2022 10/15/2022 4:14 PM BEAD FORMING MACHINE SET UP OPERATOR Miscellaneous samples (specimen) TISSUE SPECIMEN FROM SKIN / Unknown 10/14/2022 10/15/2022 4:14 PM BEAD FORMING MACHINE SET UP OPERATOR Miscellaneous samples (specimen) TISSUE SPECIMEN FROM SKIN / Unknown 10/14/2022 10/15/2022 4:14 PM BEAD FORMING MACHINE SET UP OPERATOR Fabio Polanco MD LAB - PATHOLOGY/CYTOLOGY ORD ERABLES Final Result DERMATOPATHOLOGY LABORATORY [facility] - Department of Dermatology [facility] Medicine [address] [place] [address], [address] [phone] documented in this encounter Visit Diagnoses Not on filedocumented in this encounter Care Teams Cosmetic Consultant Relationship Specialty Start Date End Date Manuel Urbina MD [address] [place] [address] PCP - General 06/27/22 documented as of this encounter
--- OUTSIDE RECORDS SUMMARY | 2025-04-11 08:20 | XMS_ITS | Clinical Summary ---
Author Organization [facility] at the [facility] Office Center Address [address] [place] [address] Care Team Providers Care Marine Structural Designer Name Role Phone Manuel Urbina MD Primary Care Provider [phone] Allergies No known active allergies Medications alendronate [...] Problem Noted Date Diagnosed Date Atherosclerosis of diom[place] ar aydin of both lower extremities with intermittent claudication 01/06/2023 Assessment & Plan (07/29/2023 1:46 PM PHARMACY OPERATIONS MANAGER): Patient asymptomatic with no evidence of clinically [...] 01/06/2023 Assessment & Plan (07/28/2023 3:11 PM PHARMACY OPERATIONS MANAGER): Hypertension chronic and controlled. Continue current medical management. Assessment & Plan (01/06/2023 1:22 PM CDT): Impression: Stable chronic hypertension. Plan: Medications reviewed and recommend continuing daily antihypertensive regimen as directed by patient's primary care physician. Mixed hyperlipidemia 01/06/2023 Assessment & Plan (07/28/2023 3:11 PM PHARMACY OPERATIONS MANAGER): Hyperlipidemia chronic and controlled. Continue Lipitor. Assessment & Plan (01/06/2023 1:22 PM CDT): Hyperlipidemia: Stable chronic hyperlipidemia. Medications reviewed and I recommend continuing daily statin regimen as directed by patient's primary care physician. Immunizations Immunization Administration Dates Next Due Influenza, Quad, Adjuvantate d, Intramuscular 06/17/2022,06/25/2021 Influenza, Trivalent, High D ose, Split, Preservative Free, Intramuscular 06/21/2019,06/07/2018,06/16/2017,05/28 Influenza, Trivalent, Preser vative Free, Intramuscular 05/02/2020 Influenza, Unspecified 06/10/2023 Pneumococcal Polysaccharide PPV23 06/07/2018 Surgical History Surgery Date Site/Laterality Comments CATARACT EXTRACTION CARPAL TUNNEL RELEASE Medical History Medical History Date Comments COPD (chronic obstructive pulmonary disease) High cholesterol Hypotension Sleep apnea Family History [...] Comments Blood Pressure 159/77 07/08/2023 2:04 PM PHARMACY OPERATIONS MANAGER Pulse 71 07/08/2023 2:04 PM PHARMACY OPERATIONS MANAGER Temperature - - Respiratory Rate - - Oxygen Saturation - - Inhaled Oxygen Concentration - - Weight 83 kg (183 lb) 07/08/2023 2:04 PM PHARMACY OPERATIONS MANAGER Height 156.2 cm (5' 1.5) 07/08/2023 2:04 PM PHARMACY OPERATIONS MANAGER Body Mass Index 34.02 07/08/2023 2:04 PM PHARMACY OPERATIONS MANAGER Plan of Treatment Health Maintenance Due Date [...] 2024 08/08/2021, 11/13/2020, 10/26/2020 Influenza Vaccine (#1) 2025 , 06/17/2022, 06/25/2021, Additional history exists Insurance MEDICARE [facility] MEDICARE [facility] Care Teams Marine Structural Designer Relationship Specialty Start Date End Date Manuel Urbina MD PCP - General Family Medicine 12/19/22
[2025-04-11 08:48] LABS: Hematocrit 42.0 % (37.0-47.0); Hemoglobin 13.4 g/dL (12.0-15.0); Mean Corpuscular HGB Conc 31.9 g/dl (32-36); Mean Corpuscular Hemoglobin 29.3 pg (26-34); Mean Corpuscular Volume 91.9 fl (80-100); Platelet Count Result 177 k/mm3 (150-375); Red Blood Count 4.57 M/mm3 (4.2-5.4); White Blood Count 6.6 K/mm3 (4.5-10.0)
[2025-04-11 09:11] LABS: Alanine Aminotransferase 13 U/L (6-35); Albumin Level 4.4 g/dL (3.5-5.1); Alkaline Phosphatase 79 U/L (38-126); Anion Gap 8 mmol/L (4-12); Aspartate Amino Transferase 30 U/L (14-36); Bilirubin,Total 0.6 mg/dL (0.2-1.3); Blood Urea Nitrogen 13 mg/dL (7-17); Calcium 9.6 mg/dL (8.4-10.2); Carbon Dioxide 26 mmol/L (22-30); Chloride 104 mmol/L (98-107); Cholesterol 165 mg/dL (0-200); Estimated Glomerular Filt Rate > 60; Glucose 96 mg/dL (65-110); HDL Direct 57 mg/dL; Potassium 3.7 mmol/L (3.4-5.0); Sodium 138 mmol/L (137-145); Total Protein 7.6 g/dL (6.3-8.2); Triglycerides 112 mg/dL (<150)
[2025-04-11 09:26] LABS: Hemoglobin A1C 5.5 % (<5.7)
[2025-04-11 09:46] LABS: Thyroid Stimulating Hormone 5.160 uIU/mL (0.465-4.680)
== END 2025-04-11 08:13 | disposition home or self-care (01) ==
PROVIDERS: PCP Family Medicine; Visit Provider Nurse Practitioner Family
DX: E78.5 Hyperlipidemia, unspecified (principal); E87.1 Hypo-osmolality and hyponatremia; Z13.1 Encounter for screening for diabetes mellitus; Z13.21 Encounter for screening for nutritional disorder; Z13.29 Encounter for screening for other suspected endocrine disorder
CPT/HCPCS: 36415; 80053; 80061; 83036; 84443; 85027

== ENCOUNTER 2025-05-22 08:32 | Outpatient (CLI) | payer MEDICARE, SELFPAY ==
--- OUTSIDE RECORDS SUMMARY | 2025-05-22 09:12 | XMS_ITS | Clinical Summary ---
Author Organization [facility] Address [address] [place] [address] Care Team Providers Care Transportation Dispatcher Name Role Phone Manuel Urbina MD Primary Care Provider [phone] Source Comments [facility],non-owned Affiliates and Associated Physician Practices is amultiple site organization consisting of ambulatory clinics and hospital sitesin [place], [place], [place] and [place]. This disclosure is being madepursuant to the Care Everywhere program and may not contain all information available regarding this patient. Last updated 18.[facility] [employer] Social History Tobacco Use Types Packs/Day Years Used Date Smoking Tobacco: Never Assessed Comments Unknown Sex and Gender Information Value Date Recorded Sex Assigned at Not on file Legal Sex Female 9:50 AM CDT Gender Identity Not on file Sexual Orientation Not on file Plan of Treatment Health Maintenance Due Date Last Done Comments BONE DENSITY TESTING 1945 MEDICARE AWV 12 MONTHS 1945 DTAP/TDAP/TD VACCINES (1 - Tdap) 1965 PNEUMOCOCCAL VACCINE 50+ (1 of 1 - PCV) 1996 ZOSTER VACCINE (1 of 2) 1996 Respiratory Syncytial Virus (RSV) Vaccine Pt: or over 60 yrs (1 - 1-dose 75+ series) 2021 DEPRESSION SCREENING 08/31/2024 COVID-19 VACCINE ( - 2023-2 5 season) 2025 INFLUENZA VACCINE (#1) 2025 HEPATITIS B VACCINE [...] complete this topic Insurance MEDICARE Care Teams Transportation Dispatcher Relationship Specialty Start Date End Date Manuel Urbina MD [address] [place], [place] [id number] PCP - General 06/27/22
--- OUTSIDE RECORDS SUMMARY | 2025-05-22 09:12 | XMS_ITS | Clinical Summary ---
Author Organization [facility] at the [facility] Office Center Address [address] [place] [address] Care Team Providers Care Database Administration Manager Name Role Phone Manuel Urbina MD Primary Care Provider [phone] Allergies No known active allergies Medications alendronate [...] Problem Noted Date Diagnosed Date Atherosclerosis of mechoop[place] ar aydin of both lower extremities with intermittent claudication 01/06/2023 Assessment & Plan (07/29/2023 1:46 PM MOWER SHARPENER): Patient asymptomatic with no evidence of clinically [...] 01/06/2023 Assessment & Plan (07/28/2023 3:11 PM MOWER SHARPENER): Hypertension chronic and controlled. Continue current medical management. Assessment & Plan (01/06/2023 1:22 PM CDT): Impression: Stable chronic hypertension. Plan: Medications reviewed and recommend continuing daily antihypertensive regimen as directed by patient's primary care physician. Mixed hyperlipidemia 01/06/2023 Assessment & Plan (07/28/2023 3:11 PM MOWER SHARPENER): Hyperlipidemia chronic and controlled. Continue Lipitor. Assessment [...] Comments Blood Pressure 159/77 07/08/2023 2:04 PM MOWER SHARPENER Pulse 71 07/08/2023 2:04 PM MOWER SHARPENER Temperature - - Respiratory Rate - - Oxygen Saturation - - Inhaled Oxygen Concentration - - Weight 83 kg (183 lb) 07/08/2023 2:04 PM MOWER SHARPENER Height 156.2 cm (5' 1.5) 07/08/2023 2:04 PM MOWER SHARPENER Body Mass Index 34.02 07/08/2023 2:04 PM MOWER SHARPENER Plan of Treatment Health Maintenance Due Date Last Done Comments Depression Screening 1945 Fall Risk Assessment 1945 Hepatitis C Screening 1945 Osteoporosis Screening-Bone Density Scan 1945 DTaP/Tdap/Td Vaccine (1 - Tdap) 1957 Hepatitis B Screening 1964 Well Visit 65+ 2011 Zoster Vaccine (2 of 3) 03/28/2014 01/31/2014 Pneumococcal vaccine 65+ (2 of 2 - PCV) 06/07/2019 06/07/2018 Covid-19 Vaccine (4 - 2024-2 6 season) 2025 08/08/2021, 11/13/2020, 10/26/2020 Influenza Vaccine (#1) 2025 3, 06/17/2022, 06/25/2021, Additional history exists Insurance MEDICARE [facility] MEDICARE [facility] Care Teams Database Administration Manager Relationship Specialty Start Date End Date Manuel Urbina MD PCP - General Family Medicine 12/19/22
--- OUTSIDE RECORDS SUMMARY | 2025-05-22 09:12 | XMS_ITS | Encounter Summary ---
Author Organization [facility] Address [address] [place] [address] Care Team Providers Care Freezer Laboratory Technician Name Role Phone Manuel Urbina MD Primary Care Provider Encounter Details Date Type Department Care Team (Late st Contact Info) Description 10/15/2022 Lab Requisition [facility] [address] [place] [address] Fabio Polanco MD [address] [place] [id number] Social History Tobacco Use Types Packs/Day [...] Comments DERMATOPATHOLOGY Routine 10/14/2022 12:0 0 AM REED REPAIRER documented in this encounter Results * DERMATOPATHOLOGY (10/14/2022 12:00 AM REED REPAIRER) Case Report Dermatopathology Report Case: [id number] Authorizing Provider: Fabio Polanco MD Collected: 10/14/2022 12:00 AM Ordering Location: [facility] Received: 10/15/2022 04:14 PM Pathologist: Mitzi Lima MD Specimens: A) - Skin, right ear crushelicus B) - Skin, right lateral base of neck C) - Skin, left lateral upper cutaneous lip 1:20 PM REED REPAIRER DERMATOPATHOLOGY LABORATORY Final Diagnosis Specimen A. 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 SKIN, right lateral base of neck: SEBORRHEIC KERATOSIS (L82.1) Specimen C. SKIN, left lateral upper cutaneous lip: BASAL CELL CARCINOMA, NODULAR TYPE (C44.319) 1:20 PM [facility] DERMATOPATHOLOGY LABORATORY at 1320 REED REPAIRER Clinical History A: R/O SCC B: R/O ISK vs Melanocytic Lesion C: R/O BCC 1:20 PM [facility] DERMATOPATHOLOGY LABORATORY Gross Description Specimen A: [...] measuring 9x6x3 mm. Jar 0. 1:20 PM [facility] DERMATOPATHOLOGY [facility]ORATORY Microscopic Description Specimen A. [...] cytoplasmic ratio and peripheral palisading. 1:20 PM [facility] DERMATOPATHOLOGY [facility]ORATORY Disclaimer An external and internal positive and negative controls are appropriate for the histochemical, immunohistochemical and immunofluorescence stain(s) in this case (if any), except where stated explicitly. The performance characteristics of the stain(s) cited in this report were developed and its performance characteristic determined by the Dermatopathology Laboratory at [facility], directed by Dr. Eli Andrea. These tests need not be, and therefore are not, approved by the [place] Food and Drug Administration. The tests are used for clinical purposes. Billing Codes Specimen Charges Stain Charges 95509 [id number] 23809 1 1 1 3 1:20 PM REED REPAIRER DERMATOPATHOLOGY LABORATORY Embedded Images 3 1:20 PM REED REPAIRER DERMATOPATHOLOGY LABORATORY Pathology/Cytology TISSUE SPECIMEN FROM SKIN / Unknown 10/14/2022 10/15/2022 4:14 PM REED REPAIRER Miscellaneous samples (specimen) TISSUE SPECIMEN FROM SKIN / Unknown 10/14/2022 10/15/2022 4:14 PM REED REPAIRER Miscellaneous samples (specimen) TISSUE SPECIMEN FROM SKIN / Unknown 10/14/2022 10/15/2022 4:14 PM REED REPAIRER Fabio Polanco MD LAB - PATHOLOGY/CYTOLOGY ORD ERABLES Final Result DERMATOPATHOLOGY LABORATORY [facility] - Department of Dermatology [facility] Medicine [address] [place] [address], [address] [phone] documented in this encounter Visit Diagnoses Not on filedocumented in this encounter Care Teams Freezer Laboratory Technician Relationship Specialty Start Date End Date Manuel Urbina MD [address] [place] [address] PCP - General 06/27/22 documented as of this encounter
[2025-05-22 10:44] LABS: Thyroid Stimulating Hormone 2.350 uIU/mL (0.465-4.680)
[2025-05-22 10:55] LABS: Free T4 Free Thyroxine 1.16 ng/dL (0.78-2.19)
== END 2025-05-22 08:33 | disposition home or self-care (01) ==
LOC: ANHLAB 08:37
PROVIDERS: PCP Family Medicine; Visit Provider Nurse Practitioner Family
DX: E03.9 Hypothyroidism, unspecified (principal)
CPT/HCPCS: 36415; 84439; 84443